=== PATIENT | male | born 1960 | race Caucasian/White ===

== ENCOUNTER → 2017-09-01 | Outpatient (CLI) | payer OTHER ==
[2016-10-26 19:42] VITALS: BP 160/88
[~2017-09-01] MED LIST: ASPI81TA44 PO; ATOR40TA59 PO; COLE1TAB PO; GABA400C PO; GABA800T2 PO; GLIP10TA13 PO; GLIP5TAB10 PO; INSU100I13 SQ; INSU100I17 SQ; INSU300I; METF-620 PO; METH750T2 PO; METO-239 PO; METO25TA2 PO; MULT-245 PO; OMEP40CA5 PO; OXYC1TAB9 PO; Oxycodone Hcl/Acetaminophen PO; PANT40TA3 PO; SITA100T PO; TAMS0.4C2 PO; VALS160T3 PO; VALS40TA2 PO; VALS40TA9 PO; VALS80TA22 PO; VALS80TA3 PO
[2017-09-01 14:05] LABS: BASO # 0.1 x10^3/uL (0.0-0.2); BASO % 1 % (0-3); EOS % 1 % (0-3); HEMATOCRIT 35.7 % (39.0-53.0); HEMOGLOBIN 12.2 g/dL (13.0-17.5); LYMPH % 31 % (24-48); MEAN CORPUSCULAR HEMOGLOBIN 32 pg (25-35); MEAN CORPUSCULAR HGB CONC 34 g/dL (31-37); MEAN CORPUSCULAR VOLUME 94 fL (79-100); MONO % 7 % (0-9); NEUT % 59 % (31-73); PLATELET COUNT 189 x10^3/uL (140-400); RED BLOOD COUNT 3.81 x10^6/uL (4.30-5.70); RED CELL DISTRIBUTION WIDTH 13.4 % (11.5-14.5); WHITE BLOOD COUNT 9.5 x10^3/uL (4.0-11.0)
[2017-09-01 14:44] LABS: CALCIUM 9.6 mg/dL (8.5-10.1); CREATININE 1.3 mg/dL (0.7-1.3); GFR 56.7; POTASSIUM 4.3 mmol/L (3.5-5.1)
== END | disposition home or self-care (01) ==
LOC: LAB 13:43
DX: I10 Essential (primary) hypertension (principal); E11.59 Type 2 diabetes mellitus with other circulatory complications; N40.1 Benign prostatic hyperplasia with lower urinary tract symptoms
CPT/HCPCS: 36415; 80048; 82306; 83036; 85025

== ENCOUNTER 2017-09-29 18:44 | Emergency (ER) | payer OTHER ==
[~2017-09-29] VITALS: Ht 170.2 cm; Wt 117.9 kg
[2017-09-29] MEDS ORDERED: BUPR150T6 PO (19:27)
[2017-09-29] MEDS ORDERED: CLOP75TA PO (19:28)
[2017-09-29] MEDS ORDERED: CITA20TA5 PO (19:28)
[2017-09-29] MEDS ORDERED: FURO20TA3 PO (19:29)
[2017-09-29] MEDS ORDERED: OMEP10CA3 PO (19:29)
[2017-09-29] MEDS ORDERED: ROPI0.5T PO (19:31)
[2017-09-29] MEDS ORDERED: MELO7.5T29 PO (19:32)
--- NOTE | 2017-09-29 19:33 | PHYS DOC ---
Past Medical History Past Medical History: CAD, Cancer, CVA, Depression, Diabetes-Type II, GERD, Hypertension, TIA Additional Past Medical Histor: colon cancer Past Surgical History: Cancer Surgery, Cholecystectomy, Other Additional Past Surgical Histo: eyes,ears,nose,hand ,DEFIB LEFT CHEST,COLON RESECTION Alcohol Use: None Drug Use: None Adult General Chief Complaint Chief Complaint: CHEST PAIN HPI HPI Patient is a 57 year old M who presents with chest pain that developed while he was driving home. Patient states he got home and took nitroglycerin. Patient states that her Kosta is his cushion filler. Patient denies previous AR or stents or bypass surgery. Patient does have a history of angina which takes nitro. Patient states that his chest pain was left-sided with radiation to his left arm. Patient states his pain is improved once he got to the emergency room. Patient denies any shortness of breath. Patient has no fevers. Patient has no other complaints. Review of Systems Review of Systems GEN: Denies fevers, chills, sweats HEENT: Denies blurred vision, sore throat CV: Chest pain RESP: Denies shortness of air, cough GI: Denies n/v/d NEURO: Denies confusion, dizziness MSK: Denies weakness, joint pain/swelling All other systems were reviewed and found to be within normal limits, except as documented in this note. Allergies Allergies Allergies Coded Allergies Type Severity Reaction Last Updated Verified Penicillins Allergy Intermediate 02/02/15 No codeine Allergy Intermediate 10/25/16 Yes Physical Exam Physical Exam GEN.: No apparent distress. Alert and oriented. HEENT: Head is normocephalic, atraumatic NECK: Supple. LUNGS: CTAB. HEART: RRR, S1, S2 present. Peripheral pulses intact ABDOMEN: Soft, nontender. Positive bowel sounds. EXTREMITIES: Without any cyanosis. NEUROLOGIC: Normal speech, normal tone PSYCHIATRIC: Normal affect, normal mood. SKIN: No ulcerations Current Patient Data Vital Signs Vital Signs Date Time Temp Pulse Resp B/P (MAP) Pulse Ox O2 Delivery O2 Flow Rate FiO2 09/29/17 21:23 80 11 161/77 (105) 95 Nasal Cannula 1.0 09/29/17 19:00 97.9 97.9 Lab Values Laboratory Tests Test 09/29/17 19:05 White Blood Count 11.1 x10^3/uL (4.0-11.0) H Red Blood Count 4.00 x10^6/uL (4.30-5.70) L Hemoglobin 12.5 g/dL (13.0-17.5) L Hematocrit 37.4 % (39.0-53.0) L Mean Corpuscular Volume 94 fL (79-100) Mean Corpuscular Hemoglobin 31 pg (25-35) Mean Corpuscular Hemoglobin Concent 34 g/dL (31-37) Red Cell Distribution Width 13.2 % (11.5-14.5) Platelet Count 211 x10^3/uL (140-400) Neutrophils (%) (Auto) 65 % (31-73) Lymphocytes (%) (Auto) 24 % (24-48) Monocytes (%) (Auto) 8 % (0-9) Eosinophils (%) (Auto) 1 % (0-3) Basophils (%) (Auto) 1 % (0-3) Neutrophils # (Auto) 7.3 x10^3uL (1.8-7.7) Lymphocytes # (Auto) 2.7 x10^3/uL (1.0-4.8) Monocytes # (Auto) 0.8 x10^3/uL (0.0-1.1) Eosinophils # (Auto) 0.1 x10^3/uL (0.0-0.7) Basophils # (Auto) 0.2 x10^3/uL (0.0-0.2) Sodium Level 141 mmol/L (136-145) Potassium Level 4.0 mmol/L (3.5-5.1) Chloride Level 100 mmol/L (98-107) Carbon Dioxide Level 32 mmol/L (21-32) Anion Gap 9 (6-14) Blood Urea Nitrogen 16 mg/dL (8-26) Creatinine 1.2 mg/dL (0.7-1.3) Estimated GFR (Cockcroft-Gault) 62.2 BUN/Creatinine Ratio 13 (6-20) Glucose Level 132 mg/dL (70-99) H Calcium Level 9.3 mg/dL (8.5-10.1) Total Bilirubin 0.6 mg/dL (0.2-1.0) Aspartate Amino Transferase (AST) 30 U/L (15-37) Alanine Aminotransferase (ALT) 26 U/L (16-63) Alkaline Phosphatase 66 U/L (46-116) Troponin I Quantitative < 0.017 ng/mL (0.000-0.055) Total Protein 7.8 g/dL (6.4-8.2) Albumin 3.6 g/dL (3.4-5.0) Albumin/Globulin Ratio 0.9 (1.0-1.7) L Laboratory Tests 09/29/17 19:05 Laboratory Tests 09/29/17 19:05 EKG EKG 1855: EKG shows normal sinus rhythm rate of 83 no STEMI[] Radiology/Procedures Radiology/Procedures Chest x-ray NAD[] Course & Med Decision Making Course & Med Decision Making Pertinent Labs and Imaging studies reviewed. (See chart for details) ED course: Patient is seen and examined emergency room the cardiac workup was ordered 2204: Patient was reevaluated in which she states this chest pain has resolved and he feels much better like to go home. Patient states he does not want admitted to hospital for cardiac workup and like to go home and follow-up with his cushion filler Kosta. Patient understand all risks including and disability. MDM: After reviewing the chart, CC/HPI/PMH, physical exam, [lab results], [ radiological results], I do not believe the patient having acute AR (Heart score =3), PE (PERC neg), and low suspicion for acute thoracic aortic dissection. I did offer the patient admission to the hospital for cardiac workup over he declined understanding all risks and elected to go home and follow-up with his cushion filler as an outpatient. Patient stable for discharge. On reexamine patient's chest pain has resolved patient is asymptomatic. Additional verbal discharge instructions were provided to the patient and that if symptoms get worse or any new symptoms arise that are worrisome to the patient he is to return to the emergency room immediately [] Dragon Disclaimer Dragon Disclaimer This electronic medical record was generated, in whole or in part, using a voice recognition dictation system. Departure Departure Impression: Primary Impression: Chest pain Disposition: 01 HOME, SELF-CARE Condition: IMPROVED Referrals: HERMES LOPEZ MD Please follow-up within the next one to 2 days Patient Instructions: Chest Pain (Nonspecific) MARTÍN LOUISE DO Sep 29, 2017 19:33
[2017-09-29 19:36] LABS: BASO # 0.2 x10^3/uL (0.0-0.2); BASO % 1 % (0-3); EOS % 1 % (0-3); HEMATOCRIT 37.4 % (39.0-53.0); HEMOGLOBIN 12.5 g/dL (13.0-17.5); LYMPH # 2.7 x10^3/uL (1.0-4.8); LYMPH % 24 % (24-48); MEAN CORPUSCULAR HEMOGLOBIN 31 pg (25-35); MEAN CORPUSCULAR HGB CONC 34 g/dL (31-37); MEAN CORPUSCULAR VOLUME 94 fL (79-100); MONO % 8 % (0-9); NEUT % 65 % (31-73); PLATELET COUNT 211 x10^3/uL (140-400); RED CELL DISTRIBUTION WIDTH 13.2 % (11.5-14.5); WHITE BLOOD COUNT 11.1 x10^3/uL (4.0-11.0)
[2017-09-29 19:46] LABS: CALCIUM 9.3 mg/dL (8.5-10.1); CREATININE 1.2 mg/dL (0.7-1.3); GFR 62.2
[2017-09-29 19:52] LABS: ALBUMIN 3.6 g/dL (3.4-5.0); ALBUMIN/GLOBULIN RATIO 0.9 (1.0-1.7); TOTAL BILIRUBIN 0.6 mg/dL (0.2-1.0); TOTAL PROTEIN 7.8 g/dL (6.4-8.2)
[2017-09-29 22:23] VITALS: BP 143/66
--- NOTE | 2017-09-30 06:54 | EKG ---
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
--- NOTE | 2017-09-30 07:53 | RAD ---
Portable chest, 09/29/2017: History: Chest pain Comparison is made to a study from 11/03/2016. A small electronic device is again noted projected over the chest just to the left of midline. The heart size and pulmonary vascularity are normal. There are prominent epicardial fat pads. No pulmonary infiltrates are seen. There is no evidence of pleural fluid. IMPRESSION: No acute cardiopulmonary abnormality is detected.
== END 2017-09-29 22:43 | disposition home or self-care (01) ==
LOC: ER 18:44
DX: R07.89 Other chest pain (principal); E11.9 Type 2 diabetes mellitus without complications; I25.10 Atherosclerotic heart disease of native coronary artery without angina pectoris; I10 Essential (primary) hypertension; K21.9 Gastro-esophageal reflux disease without esophagitis; I25.2 Old myocardial infarction; Z86.73 Personal history of transient ischemic attack (TIA), and cerebral infarction without residual deficits; Z90.49 Acquired absence of other specified parts of digestive tract; Z88.0 Allergy status to penicillin; Z88.5 Allergy status to narcotic agent
CPT/HCPCS: 36415; 71010; 80053; 84484; 85025; 93005; 99285-25

== ENCOUNTER 2017-12-07 18:15 | Emergency (ER) | payer OTHER, MEDICAID ==
[2017-12-07] MEDS: IV NORMAL SALINE 1000ML BAG 1,000 ML IV (19:14)
[2017-12-07 19:21] LABS: ADD MAN DIFF? NO
[2017-12-07] MEDS: MORPHINE SULFATE 10 MG/ML VIAL. IV (19:21)
[2017-12-07] MEDS: diazePAM 5 MG TABLET PO (19:21)
[2017-12-07 19:22] LABS: BASO # 0.1 x10^3/uL (0.0-0.2); BASO % 1 % (0-3); EOS # 0.1 x10^3/uL (0.0-0.7); EOS % 1 % (0-3); HEMATOCRIT 38.6 % (39.0-53.0); HEMOGLOBIN 12.8 g/dL (13.0-17.5); LYMPH # 2.4 x10^3/uL (1.0-4.8); LYMPH % 27 % (24-48); MEAN CORPUSCULAR HEMOGLOBIN 31 pg (25-35); MEAN CORPUSCULAR HGB CONC 33 g/dL (31-37); MEAN CORPUSCULAR VOLUME 93 fL (79-100); MONO # 0.7 x10^3/uL (0.0-1.1); MONO % 7 % (0-9); NEUT # 5.7 x10^3uL (1.8-7.7); NEUT % 63 % (31-73); PLATELET COUNT 192 x10^3/uL (140-400); RED BLOOD COUNT 4.15 x10^6/uL (4.30-5.70)
[2017-12-07 19:34] LABS: ANION GAP 12 (6-14); BLOOD UREA NITROGEN 18 mg/dL (8-26); BUN/CREATININE RATIO 13 (6-20); CALCIUM 8.9 mg/dL (8.5-10.1); CARBON DIOXIDE 29 mmol/L (21-32); CHLORIDE 100 mmol/L (98-107); CREATININE 1.4 mg/dL (0.7-1.3); GFR 52.1; GLUCOSE 202 mg/dL (70-99); POTASSIUM 4.1 mmol/L (3.5-5.1); SODIUM 141 mmol/L (136-145)
[2017-12-07 19:36] LABS: ETHANOL < 10 mg/dL (0-10)
[2017-12-07 19:40] LABS: ALBUMIN 3.4 g/dL (3.4-5.0); ALBUMIN/GLOBULIN RATIO 0.8 (1.0-1.7); ALK PHOS 69 U/L (46-116); ALT (SGPT) 30 U/L (16-63); AST (SGOT) 25 U/L (15-37); LIPASE 162 U/L (73-393); MAGNESIUM 1.7 mg/dL (1.8-2.4); TOTAL BILIRUBIN 0.6 mg/dL (0.2-1.0); TOTAL PROTEIN 7.7 g/dL (6.4-8.2)
[2017-12-07 19:44] LABS: NT-PRO BNP 39 pg/mL (0-124)
[2017-12-07] MEDS ORDERED: CONTRAST GIVEN MC (19:45)
[2017-12-07 19:49] LABS: INR 1.1 (0.8-1.1); PARTIAL THROMBOPLASTIN TIME 29 SEC (24-38); PROTHROMBIN TIME PATIENT 13.9 SEC (11.7-14.0)
[2017-12-07] MEDS: IOHEXOL 300 MG/ML 100ML VIAL. IV (19:59)
[2017-12-07 20:53] LABS: BARBITURATES NEG (NEG); BENZODIAZEPINES NEG (NEG); CANNABINOIDS NEG (NEG); COCAINE NEG (NEG); METHADONE NEG (NEG); OPIATES POS (NEG); PHENCYCLIDINE NEG (NEG)
[2017-12-07 20:54] LABS: AMPHETAMINE/METHAMPHETAMINE NEG (NEG); ETHANOL, URINE NEG (NEG)
== END 2017-12-07 22:55 | disposition home or self-care (01) ==
LOC: ER 18:15
DX: S33.5XXA Sprain of ligaments of lumbar spine, initial encounter (principal); S23.3XXA Sprain of ligaments of thoracic spine, initial encounter; S09.90XA Unspecified injury of head, initial encounter; E83.42 Hypomagnesemia; R10.84 Generalized abdominal pain; I25.10 Atherosclerotic heart disease of native coronary artery without angina pectoris; F32.9 Major depressive disorder, single episode, unspecified; E11.9 Type 2 diabetes mellitus without complications; I10 Essential (primary) hypertension; K21.9 Gastro-esophageal reflux disease without esophagitis; Z86.73 Personal history of transient ischemic attack (TIA), and cerebral infarction without residual deficits; Z88.0 Allergy status to penicillin; Z90.49 Acquired absence of other specified parts of digestive tract; Z95.810 Presence of automatic (implantable) cardiac defibrillator; Z88.5 Allergy status to narcotic agent; W01.198A Fall on same level from slipping, tripping and stumbling with subsequent striking against other object, initial encounter; Y93.89 Activity, other specified; Y92.89 Other specified places as the place of occurrence of the external cause; Y99.8 Other external cause status
CPT/HCPCS: 36415; 70450; 71260; 72125; 73080; 74177; 80053; 80307; 83690; 83735; 83880; 85025; 85610; 85730; 96361; 96374; 99285-25; G0480; J2270; J7030; Q9967

== ENCOUNTER → 2017-12-09 | Outpatient (CLI) | payer OTHER, MEDICAID ==
[~2017-12-09] MED LIST changes: -ASPI81TA44 PO; -ATOR40TA59 PO; -COLE1TAB PO; -GABA400C PO; -GABA800T2 PO; -GLIP10TA13 PO; -GLIP5TAB10 PO; -INSU100I13 SQ; -INSU100I17 SQ; -INSU300I; +LIDOCAINE 2%/EPI 1:100,000 20 ML VIAL.; -METF-620 PO; -METH750T2 PO; -METO-239 PO; -METO25TA2 PO; -MULT-245 PO; -OMEP40CA5 PO; -OXYC1TAB9 PO; -Oxycodone Hcl/Acetaminophen PO; -PANT40TA3 PO; -SITA100T PO; -TAMS0.4C2 PO; -VALS160T3 PO; -VALS40TA2 PO; -VALS40TA9 PO; -VALS80TA22 PO; -VALS80TA3 PO; +fentaNYL PF VIAL 100 MCG/2 ML VIAL
[2017-12-09 11:28] LABS: ADD MAN DIFF? NO
[2017-12-09 11:33] LABS: BASO # 0.1 x10^3/uL (0.0-0.2); BASO % 1 % (0-3); EOS # 0.1 x10^3/uL (0.0-0.7); EOS % 2 % (0-3); HEMATOCRIT 36.2 % (39.0-53.0); HEMOGLOBIN 12.4 g/dL (13.0-17.5); LYMPH # 2.4 x10^3/uL (1.0-4.8); LYMPH % 28 % (24-48); MEAN CORPUSCULAR HEMOGLOBIN 31 pg (25-35); MEAN CORPUSCULAR HGB CONC 34 g/dL (31-37); MEAN CORPUSCULAR VOLUME 91 fL (79-100); MONO # 0.6 x10^3/uL (0.0-1.1); MONO % 7 % (0-9); NEUT # 5.4 x10^3uL (1.8-7.7); NEUT % 63 % (31-73); PLATELET COUNT 191 x10^3/uL (140-400); RED BLOOD COUNT 3.99 x10^6/uL (4.30-5.70); RED CELL DISTRIBUTION WIDTH 14.1 % (11.5-14.5); WHITE BLOOD COUNT 8.6 x10^3/uL (4.0-11.0)
[2017-12-09 11:53] LABS: INR 1.2 (0.8-1.1); PROTHROMBIN TIME PATIENT 14.1 SEC (11.7-14.0)
[2017-12-09] MEDS: LIDOCAINE 2%/EPI 1:100,000 20 ML VIAL. IJ (12:58)
[2017-12-09] MEDS: fentaNYL PF VIAL 100 MCG/2 ML VIAL IV (12:59)
== END | disposition home or self-care (01) ==
LOC: CCL 10:42
DX: T82.598A Other mechanical complication of other cardiac and vascular devices and implants, initial encounter (principal); Y84.8 Other medical procedures as the cause of abnormal reaction of the patient, or of later complication, without mention of misadventure at the time of the procedure; Y92.89 Other specified places as the place of occurrence of the external cause; Z79.01 Long term (current) use of anticoagulants
CPT/HCPCS: 33284; 36415; 85025; 85610; J3010; J3490

== ENCOUNTER → 2018-05-11 | Outpatient (CLI) | payer OTHER | END | disposition home or self-care (01) | LOC: RAD 15:49 | DX: M79.602 Pain in left arm (principal); Z91.81 History of falling | CPT/HCPCS: 73060; 73090 ==

== ENCOUNTER 2018-07-10 17:00 | Emergency (ER) | payer OTHER ==
[~2018-07-10] VITALS: Ht 170.2 cm; Wt 115.7 kg
[~2018-07-10 17:00] MED LIST changes: +ASPI81TA59 PO; +ATOR40TA59 PO; +BENZ-8 PO; +BUPR150T6 PO; +CITA20TA6 PO; +CLOP75TA PO; +COLE1TAB PO; +ERGO500027 PO; +FURO20TA3 PO; +GABA400C PO; +GABA800T2 PO; +GLIP10TA13 PO; +GLIP5TAB10 PO; +HYDR-971 PO; +INSU100I13 SQ; +INSU100I17 SQ; +INSU300I; -LIDOCAINE 2%/EPI 1:100,000 20 ML VIAL.; +LIRA0.6P2 SQ; +MELO15TA23 PO; +MELO7.5T29 PO; +METF10003 PO; +METH750T2 PO; +METO-239 PO; +METO25TA2 PO; +MULT-245 PO; +NITR0.4T22 SL; +OMEP10CA3 PO; +OMEP40CA5 PO; +ONDA4TAB10 PO; +OXYC-411 PO; +Oxycodone Hcl/Acetaminophen PO; +PANT40TA3 PO; +ROPI0.5T PO; +SENN-79 PO; +SITA100T PO; +TAMS0.4C2 PO; +TRAM50TA PO; +TRAZ-85 PO; +VALS160T3 PO; +VALS40TA10 PO; +VALS40TA2 PO; +VALS80TA28 PO; +VALS80TA3 PO; -fentaNYL PF VIAL 100 MCG/2 ML VIAL
[2018-07-10 17:17] VITALS: BP 124/64
--- NOTE | 2018-07-10 19:00 | RAD ---
EXAM: Thoracic spine, 3 views; right ribs, 3 views. HISTORY: Pain. Fall. COMPARISON: CT dated 12/07/2017. FINDINGS: Frontal, lateral and swimmer's views of the thoracic spine and 3 views of the right ribs are obtained. There is mild thoracic dextroscoliosis centered at T6. There is no listhesis. The vertebral bodies are normal in height. There are multiple thoracic endplate Schmorl's nodes. There is degenerative endplate remodeling with osteophytosis at C6-C7. No displaced rib fracture is seen. The right lung is clear. IMPRESSION: No acute osseous finding. Electronically signed by: Mahogany Santos MD (07/10/2018 6:57 PM) [facility]
[2018-07-10] MEDS ORDERED: HYDR-2758 PO (19:31)
--- NOTE | 2018-07-10 19:31 | PHYS DOC ---
Past Medical History Past Medical History: CAD, Cancer, CVA, Depression, Diabetes-Type II, GERD, Hypertension, TIA Additional Past Medical Histor: colon cancer Past Surgical History: Cancer Surgery, Cholecystectomy, Other Additional Past Surgical Histo: eyes,ears,nose,hand ,DEFIB LEFT CHEST,COLON RESECTION Alcohol Use: None Drug Use: None Adult General Chief Complaint Chief Complaint: RIB PAIN [facility] HPI Patient is a 58 year old [f__sex] who presents with [] Review of Systems Review of Systems Constitutional: Denies fever or chills [] Eyes: Denies change in visual acuity, redness, or eye pain [] HENT: Denies nasal congestion or sore throat [] Respiratory: Denies cough or shortness of breath [] Cardiovascular: No additional information not addressed in HPI [] GI: Denies abdominal pain, nausea, vomiting, bloody stools or diarrhea [] : Denies dysuria or hematuria [] Musculoskeletal: Denies back pain or joint pain [] Integument: Denies rash or skin lesions [] Neurologic: Denies headache, focal weakness or sensory changes [] Endocrine: Denies polyuria or polydipsia [] All other systems were reviewed and found to be within normal limits, except as documented in this note. Allergies Allergies Allergies Coded Allergies Type Severity Reaction Last Updated Verified Penicillins Allergy Intermediate 11/14/17 Yes codeine Allergy Intermediate 10/25/16 Yes Physical Exam Physical Exam Constitutional: Well developed, well nourished, no acute distress, non-toxic appearance. [] HENT: Normocephalic, atraumatic, bilateral external ears normal, oropharynx moist, no oral exudates, nose normal. [] Eyes: PERRLA, EOMI, conjunctiva normal, no discharge. [] Neck: Normal range of motion, no tenderness, supple, no stridor. [] Cardiovascular:Heart rate regular rhythm, no murmur [] Lungs & Thorax: Bilateral breath sounds clear to auscultation [] Abdomen: Bowel sounds normal, soft, no tenderness, no masses, no pulsatile masses. [] Skin: Warm, dry, no erythema, no rash. [] Back: No tenderness, no CVA tenderness. [] Extremities: No tenderness, no cyanosis, no clubbing, ROM intact, no edema. [] Neurologic: Alert and oriented X 3, normal motor function, normal sensory function, no focal deficits noted. [] Psychologic: Affect normal, judgement normal, mood normal. [] Current Patient Data Vital Signs Vital Signs Date Time Temp Pulse Resp B/P (MAP) Pulse Ox O2 Delivery O2 Flow Rate FiO2 07/10/18 17:17 98.0 88 18 124/64 (84) 94 Room Air 98.0 EKG EKG [] Radiology/Procedures Radiology/Procedures [] Course & Med Decision Making Course & Med Decision Making Pertinent Labs and Imaging studies reviewed. (See chart for details) [] Dragon Disclaimer Dragon Disclaimer This electronic medical record was generated, in whole or in part, using a voice recognition dictation system. Departure Departure Impression: Primary Impression: Contusion, chest wall Additional Impression: Acute thoracic back pain Disposition: HOME, SELF-CARE Condition: STABLE Referrals: STEVEN CUTLER DO (PCP) Patient Instructions: Back Pain, Adult, [id number], Chest Contusion, Easy-to- Read Additional Instructions: Fill your prescription and use it as directed. You may try application of ice to sore areas for comfort. Follow up with your doctor in 1-2 days. return to ER if your symptoms worsen. Scripts Hydrocodone Bit/Acetaminophen (HYDROCODONE-APAP 5-325 ) 1 Each Tablet 1 TAB PO PRN Q6HRS PRN for PAIN for 3 Days, #1 TAB 0 Refills Prov: KADIE BAEZ WAREHOUSE PACKAGING SUPERVISOR 07/10/18 Problem Qualifiers Primary Impression: Contusion, chest wall Encounter type: initial encounter Laterality: right Qualified Codes: S20.211A - Contusion of right front wall of thorax, initial encounter Additional Impression: Acute thoracic back pain Back pain laterality: right Qualified Codes: M54.6 - Pain in thoracic spine KADIE BAEZ WAREHOUSE PACKAGING SUPERVISOR Jul 10, 2018 19:31
[2018-07-10] MEDS ORDERED: HYDROcodone/APAP 5/325MG 1 TAB TABLET ONE (19:38)
[2018-07-10] MEDS ORDERED: HYDROcodone/APAP 5/325MG 1 TAB TABLET PO ONE (19:45)
== END 2018-07-10 19:42 | disposition home or self-care (01) ==
LOC: ER 17:00
DX: S20.211A Contusion of right front wall of thorax, initial encounter (principal); I10 Essential (primary) hypertension; I25.10 Atherosclerotic heart disease of native coronary artery without angina pectoris; E11.9 Type 2 diabetes mellitus without complications; F32.9 Major depressive disorder, single episode, unspecified; K21.9 Gastro-esophageal reflux disease without esophagitis; Z86.73 Personal history of transient ischemic attack (TIA), and cerebral infarction without residual deficits; Z90.49 Acquired absence of other specified parts of digestive tract; Z88.0 Allergy status to penicillin; Z88.5 Allergy status to narcotic agent; X58.XXXA Exposure to other specified factors, initial encounter; Y93.89 Activity, other specified; Y92.89 Other specified places as the place of occurrence of the external cause; Y99.8 Other external cause status
CPT/HCPCS: 71100; 72072; 99284

== ENCOUNTER 2018-08-01 16:48 | Inpatient (IN) | payer OTHER ==
[~2018-08-01] VITALS: Ht 170.2 cm; Wt 120.4 kg
[~2018-08-01 16:48] MED LIST changes: +HYDR-2758 PO; -METF10003 PO; +METF10007 PO
--- NOTE | 2018-08-01 17:23 | PHYS DOC ---
Past Medical History Past Medical History: CAD, Cancer, CVA, Depression, Diabetes-Type II, GERD, Hypertension, TIA Additional Past Medical Histor: colon cancer Past Surgical History: Cancer Surgery, Cholecystectomy, Other Additional Past Surgical Histo: eyes,ears,nose,hand ,DEFIB LEFT CHEST,COLON RESECTION Alcohol Use: None Drug Use: None Adult General Chief Complaint Chief Complaint: CHEST PAIN-CARDIAC NATURE HPI HPI Patient is a 58 year old male who presents with chest pain that started one hour prior to arrival. He was sitting on the couch watching television when it first occurred. Patient reports pain is left sided, sharp in nature, and radiates to left arm. Reports accompanied by shortness of air. Denies nausea, vomiting, syncope, palpitations, diaphoresis, or lower extremity swelling. Patient reports a history of hypertension, diabetes, CVA, hyperlipidemia. Review of Systems Review of Systems Constitutional: Denies fever or chills Eyes: Denies change in visual acuity, redness, or eye pain HENT: Denies nasal congestion or sore throat Respiratory: Denies cough. Cardiovascular: Chest pain one hour prior to arrival. Sharp and radiates to left arm GI: Denies abdominal pain, nausea, vomiting, bloody stools or diarrhea : Denies dysuria or hematuria Musculoskeletal: Denies back pain or joint pain Integument: Denies rash or skin lesions Neurologic: Denies syncope, headache, focal weakness or sensory changes Endocrine: Denies polyuria or polydipsia All other systems were reviewed and found to be within normal limits, except as documented in this note. Current Medications Current Medications Current Medications Medications (Trade) Dose Ordered Sig/[facility] Start Time Stop Time Status Last Admin Dose Admin Aspirin (Children'S Aspirin) 324 mg 1X ONCE 08/01/18 17:30 08/01/18 17:31 DC 08/01/18 17:39 324 MG Morphine Sulfate (Morphine Sulfate) 4 mg 1X ONCE 08/01/18 18:30 08/01/18 18:31 DC 08/01/18 18:44 4 MG Ondansetron HCl (Zofran) 4 mg 1X ONCE 08/01/18 18:30 08/01/18 18:31 DC 08/01/18 18:40 4 MG Allergies Allergies Allergies Coded Allergies Type Severity Reaction Last Updated Verified Penicillins Allergy Intermediate 11/14/17 Yes codeine Allergy Intermediate 9/16/18 Yes Physical Exam Physical Exam Constitutional: Well developed, obese, no acute distress, non-toxic appearance. HENT: Normocephalic, atraumatic, bilateral external ears normal, oropharynx moist, no oral exudates, nose normal. Eyes: PERRLA, EOMI, conjunctiva normal, no discharge. Neck: Normal range of motion, no tenderness, supple, no stridor. Cardiovascular:Heart rate regular rhythm, no murmur Lungs & Thorax: Bilateral breath sounds clear to auscultation Abdomen: Bowel sounds normal, soft, no tenderness, no masses, no pulsatile masses. Skin: Warm, dry, no erythema, no rash. Back: No tenderness, no CVA tenderness. Extremities: No tenderness, no cyanosis, no clubbing, ROM intact, no edema. Neurologic: Alert and oriented X 3, normal motor function, normal sensory function, no focal deficits noted. Psychologic: Affect normal, judgement normal, mood normal. [] Current Patient Data Vital Signs Vital Signs Date Time Temp Pulse Resp B/P (MAP) Pulse Ox O2 Delivery O2 Flow Rate FiO2 08/01/18 18:30 85 18 133/77 (95) 95 Room Air 08/01/18 17:20 97.2 97.2 Lab Values Laboratory Tests Test 08/01/18 17:15 White Blood Count 11.0 x10^3/uL (4.0-11.0) Red Blood Count 3.76 x10^6/uL (4.30-5.70) L Hemoglobin 12.2 g/dL (13.0-17.5) L Hematocrit 35.5 % (39.0-53.0) L Mean Corpuscular Volume 94 fL (79-100) Mean Corpuscular Hemoglobin 33 pg (25-35) Mean Corpuscular Hemoglobin Concent 34 g/dL (31-37) Red Cell Distribution Width 13.7 % (11.5-14.5) Platelet Count 204 x10^3/uL (140-400) Neutrophils (%) (Auto) 58 % (31-73) Lymphocytes (%) (Auto) 32 % (24-48) Monocytes (%) (Auto) 7 % (0-9) Eosinophils (%) (Auto) 2 % (0-3) Basophils (%) (Auto) 2 % (0-3) Neutrophils # (Auto) 6.4 x10^3uL (1.8-7.7) Lymphocytes # (Auto) 3.5 x10^3/uL (1.0-4.8) Monocytes # (Auto) 0.8 x10^3/uL (0.0-1.1) Eosinophils # (Auto) 0.2 x10^3/uL (0.0-0.7) Basophils # (Auto) 0.2 x10^3/uL (0.0-0.2) Prothrombin Time 13.9 SEC (11.7-14.0) Prothrombin Time INR 1.1 (0.8-1.1) D-Dimer ([place]) < 0.27 ug/mlFEU Sodium Level 142 mmol/L (136-145) Potassium Level 4.5 mmol/L (3.5-5.1) Chloride Level 104 mmol/L (98-107) Carbon Dioxide Level 26 mmol/L (21-32) Anion Gap 12 (6-14) Blood Urea Nitrogen 22 mg/dL (8-26) Creatinine 1.5 mg/dL (0.7-1.3) H Estimated GFR (Cockcroft-Gault) 47.9 BUN/Creatinine Ratio 15 (6-20) Glucose Level 91 mg/dL (70-99) Calcium Level 9.7 mg/dL (8.5-10.1) Magnesium Level 1.6 mg/dL (1.8-2.4) L Total Bilirubin 0.4 mg/dL (0.2-1.0) Aspartate Amino Transferase (AST) 24 U/L (15-37) Alanine Aminotransferase (ALT) 31 U/L (16-63) Alkaline Phosphatase 55 U/L (46-116) Creatine Kinase 47 U/L (39-308) Troponin I Quantitative < 0.017 ng/mL (0.000-0.055) VM-Hce-B-Type Natriuretic Peptide 76 pg/mL (0-124) Total Protein 7.9 g/dL (6.4-8.2) Albumin 3.7 g/dL (3.4-5.0) Albumin/Globulin Ratio 0.9 (1.0-1.7) L Laboratory Tests 08/01/18 17:15 Laboratory Tests 08/01/18 17:15 EKG EKG EKG 08/01/2008 at 1700, reviewed by attending physician and signed. Rate is 85 bpm, normal sinus rhythm Radiology/Procedures Radiology/Procedures [] Impressions: 1.Chest pain 2. Diabetes 3. Hypomagnesemia 4. HTN Course & Med Decision Making Course & Med Decision Making Pertinent Labs and Imaging studies reviewed. (See chart for details) Initial troponin, EKG, chest x-ray reviewed and unremarkable. Patient was given 324 of aspirin. Pain is 2 out of 10. Magnesium returned mildly low 1.6. Replacement was ordered. Heart score 4. Will admit to telemetry for serial enzymes and further evaluation and monitoring. Patient is agreeable with plan. Signs have remained stable throughout stay. accepted by Dr Aiden Go Disclaimer Abbi Disclaimer This electronic medical record was generated, in whole or in part, using a voice recognition dictation system. Departure Departure Impression: Primary Impression: Chest pain Additional Impression: Type 2 diabetes mellitus Disposition: ADMITTED INPATIENT Admitting Physician: Lyssa Wolfe Referrals: STEVEN CUTLER DO (PCP) Problem Qualifiers ALVINA WILL APRN Aug 01, 2018 17:23
--- NOTE | 2018-08-01 17:24 | EKG ---
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
[2018-08-01] MEDS ORDERED: ASPIRIN CHEWABLE 81 MG TABLET. PO ONE (17:30)
[2018-08-01 17:39] LABS: BASO # 0.2 x10^3/uL (0.0-0.2); BASO % 2 % (0-3); EOS # 0.2 x10^3/uL (0.0-0.7); EOS % 2 % (0-3); HEMATOCRIT 35.5 % (39.0-53.0); HEMOGLOBIN 12.2 g/dL (13.0-17.5); LYMPH # 3.5 x10^3/uL (1.0-4.8); LYMPH % 32 % (24-48); MEAN CORPUSCULAR HEMOGLOBIN 33 pg (25-35); MEAN CORPUSCULAR HGB CONC 34 g/dL (31-37); MEAN CORPUSCULAR VOLUME 94 fL (79-100); MONO # 0.8 x10^3/uL (0.0-1.1); MONO % 7 % (0-9); NEUT # 6.4 x10^3uL (1.8-7.7); NEUT % 58 % (31-73); PLATELET COUNT 204 x10^3/uL (140-400); RED BLOOD COUNT 3.76 x10^6/uL (4.30-5.70); RED CELL DISTRIBUTION WIDTH 13.7 % (11.5-14.5)
[2018-08-01 17:48] LABS: PROTHROMBIN TIME PATIENT 13.9 SEC (11.7-14.0)
[2018-08-01 17:49] LABS: CALCIUM 9.7 mg/dL (8.5-10.1); CREATININE 1.5 mg/dL (0.7-1.3); GFR 47.9; POTASSIUM 4.5 mmol/L (3.5-5.1)
[2018-08-01 17:52] LABS: D-DIMER < 0.27 ug/mlFEU (0.00-0.50)
[2018-08-01 17:56] LABS: ALBUMIN 3.7 g/dL (3.4-5.0); ALBUMIN/GLOBULIN RATIO 0.9 (1.0-1.7); MAGNESIUM 1.6 mg/dL (1.8-2.4); TOTAL BILIRUBIN 0.4 mg/dL (0.2-1.0); TOTAL PROTEIN 7.9 g/dL (6.4-8.2)
[2018-08-01] MEDS ORDERED: ONDANSETRON PF 4 MG/2 ML VIAL. IV ONE (18:30)
[2018-08-01] MEDS ORDERED: MORPHINE SULFATE 4 MG/ML VIAL. IV ONE (18:30)
[2018-08-01] MEDS ORDERED: MAGNESIUM SULFATE 2GM 50 ML IV ONE (19:00)
[2018-08-01 19:20] VITALS: BP 152/93
[2018-08-01 20:28] VITALS: BP 138/73
[2018-08-01] MEDS ORDERED: traMADol 50 MG TABLET PO PRN (21:00)
[2018-08-01] MEDS ORDERED: ONDANSETRON PF 4 MG/2 ML VIAL. IV PRN (21:00)
[2018-08-01] MEDS ORDERED: ONDANSETRON ODT 4 MG TAB.RAPDIS. PO PRN ×2 (21:00)
[2018-08-01] MEDS ORDERED: ACETAMINOPHEN 500 MG TABLET PO PRN (21:00)
[2018-08-01] MEDS ORDERED: DEXTROSE 50% 25 GM / 50ML DISP.SYRIN. IV PRN (21:00)
[2018-08-01] MEDS ORDERED: NITROGLYCERIN SUBLINGUAL 0.4 MG BOTTLE OF 25. SL PRN (21:00)
[2018-08-01] MEDS ORDERED: LABETALOL 20 MG/4 ML DISP.SYRIN. IVP PRN (21:00)
[2018-08-01] MEDS ORDERED: HYDROcodone/APAP 5/325MG 1 TAB TABLET PO PRN (21:00)
[2018-08-01] MEDS ORDERED: ZOLPIDEM 5 MG TABLET. PO PRN (21:00)
[2018-08-01] MEDS ORDERED: IBUPROFEN 600 MG TABLET. PO PRN (21:00)
[2018-08-01] MEDS ORDERED: SENNOSIDES 8.6 MG TABLET PO PRN (21:45)
[2018-08-01] MEDS ORDERED: INSU100I13 SQ (21:48)
[2018-08-01] MEDS ORDERED: blood pressure pill PO (21:50)
[2018-08-01] MEDS ORDERED: [UNRECOGNIZED DRUG - REMARK] (21:50)
[2018-08-01] MEDS: TAMSULOSIN 0.4 MG CAP.ER.24H. PO SCH (21:58)
[2018-08-01] MEDS: ATORVASTATIN CALCIUM 40 MG TABLET. PO SCH (21:58)
[2018-08-01] MEDS: HYDROcodone/APAP 5/325MG 1 TAB TABLET PO PRN (21:59)
[2018-08-01 23:35] VITALS: BP 102/54
[2018-08-02 03:00] VITALS: BP 108/39
[2018-08-02] MEDS: HYDROcodone/APAP 5/325MG 1 TAB TABLET PO PRN ×3 (06:23→21:17)
[2018-08-02 07:05] VITALS: BP 104/47
[2018-08-02] MEDS: INSULIN LISPRO 300 UNITS/3 ML INSULN.PEN. SQ SCH ×6 (08:00→17:00)
--- NOTE | 2018-08-02 08:58 | RAD ---
PORTABLE CHEST 1V Clinical Indication: CHEST PAIN, SOA Comparison: AP chest November 12, 2017. Findings: Apical lordotic positioning. The cardiomediastinal silhouette is normal. Lungs are clear. There is no pneumothorax. No pleural effusion is appreciated. No acute bone abnormality. IMPRESSION: No acute cardiopulmonary process. Electronically signed by: Camilo Leon MD (08/02/2018 8:55 AM) [id number]
[2018-08-02] MEDS ORDERED: BENZONATATE 100 MG CAPSULE. PO PRN (09:00)
[2018-08-02] MEDS ORDERED: NON FORMULARY ITEM (Liraglutide (Victoza 3-Pak) 1.2 MG) SQ SCH (09:00)
[2018-08-02 09:44] LABS: CHOLESTEROL/HDL RATIO 4.8
[2018-08-02 10:39] VITALS: BP 126/66
[2018-08-02] MEDS: PANTOPRAZOLE 40 MG TABLET.DR. PO SCH (11:52)
[2018-08-02] MEDS: buPROPion XL 150 MG TAB.ER.24H. PO SCH (11:52)
[2018-08-02] MEDS: CITALOPRAM 20 MG TABLET. PO SCH (11:52)
[2018-08-02] MEDS: CLOPIDOGREL BISULFATE 75 MG TABLET PO SCH (11:52)
[2018-08-02] MEDS: rOPINIRole 0.25 MG TABLET. PO SCH (11:52)
[2018-08-02] MEDS: FUROSEMIDE 20 MG TABLET PO SCH (11:53)
[2018-08-02] MEDS ORDERED: DONE5TAB7 PO (12:05)
[2018-08-02] MEDS ORDERED: OLME20TA17 PO (12:05)
[2018-08-02 15:24] VITALS: BP 117/66
--- NOTE | 2018-08-02 16:50 | HP ---
ADMIT DATE: 08/01/2018 CHIEF COMPLAINT: Chest pain. HISTORY OF PRESENT ILLNESS: The patient is a pleasant 58-year-old male who follows with Dr. Brambila although he states he really does not have any cardiac problems, but then again he states he had a cardiac arrest when he was 12. Basically, he presented with chest pain. I discussed the case with ER physician. We are going to admit the patient and consult Cardiology. PAST MEDICAL HISTORY: According to the record, he has CAD, but he denies that, strokes, depression, diabetes, hypertension, hyperlipidemia, TIA, colon cancer, cholecystectomy, colon resection, eyes, ears, nose and throat surgery, defibrillator in his left chest, colon resection. ALLERGIES: PENICILLIN AND CODEINE. FAMILY HISTORY: Coronary artery disease. SOCIAL HISTORY: He does not drink, smoke or take drugs. MEDICATIONS: Reviewed, please refer to the MRAD. REVIEW OF SYSTEMS: GENERAL: No history of weight change, weakness or fevers. SKIN: No bruising, hair changes or rashes. EYES: No blurred, double or loss of vision. NOSE AND THROAT: No history of nosebleeds, hoarseness or sore throat. HEART: No history of palpitations, chest pain or shortness of breath on exertion. LUNGS: Denies cough, hemoptysis, wheezing or shortness of breath. GASTROINTESTINAL: Denies changes in appetite, nausea, vomiting, diarrhea or constipation. GENITOURINARY: No history of frequency, urgency, hesitancy or nocturia. NEUROLOGIC: Denies history of numbness, tingling, tremor or weakness. PSYCHIATRIC: No history of panic, anxiety or depression. ENDOCRINE: No history of heat or cold intolerance, polyuria or polydipsia. EXTREMITIES: Denies muscle weakness, joint pain, pain on walking or stiffness. PHYSICAL EXAMINATION: VITAL SIGNS: Temperature afebrile, pulse 98, respirations 18, blood pressure 144/90. GENERAL: He is alert, cooperative. HEART: Normal S1, S2. LUNGS: Clear. ABDOMEN: Soft. EXTREMITIES: No edema. SKIN: No rash. ENDOCRINE: No thyromegaly. LYMPHATICS: No cervical nodes. HEMATOPOIETIC: No bruising. LABORATORY DATA: Hemoglobin is 12. Electrolytes are pending. Troponin is 0. ASSESSMENT AND PLAN: Chest pain. The patient has been admitted. We will check serial enzymes, serial EKGs, cardiac monitoring. Consult Cardiology. Home meds. PROGNOSIS: Guarded. GENA GONZALEZ DO DR: KELSEA/joi JOB#: [id number] / [id number]
[2018-08-02] MEDS: LOSARTAN POTASSIUM 50 MG TABLET. PO SCH (17:33)
--- NOTE | 2018-08-02 17:34 | PDOC2 ---
CONSULT Date of Consult Date of Consult DATE: 08/02/18 TIME: 17:30 Reason for Consult Reason for Consult: Chest pain Referring Physician Referring Physician: Dr Bajwa Identification/Chief Complaint Chief Complaint Chest pain History of Present Illness Reason for Visit: This patient is a 58-year-old gentleman that has a known history of mild coronary artery disease. His last heart catheterization was about 5 or 6 years ago and he was found to have mild stenosis of some of the small vessels. He is obese and has hypertension. The patient was at home when he started having sharp chest pains that were sustained and brought him to the emergency room. After arrival in the ER his EKG did not show any acute ST changes and the first 2 sets of troponin have been negative. The time that I saw the patient he denies having any chest pains at this point. Past Medical History Cardiovascular: CAD, HTN, Other Pulmonary: COPD CENTRAL NERVOUS SYSTEM: TIA GI: GERD Heme/Onc: Cancer Psych: Depression Musculoskeletal: Osteoarthritis Infectious disease: No pertinent hx Renal/: Benign prostatic enlarg. Endocrine: Diabetes Past Surgical History Past Surgical History: Cholecystectomy, Colon Resection, Other Family History Family History: Hypertension Social History ALCOHOL: none Drugs: None Lives: with Family Domestic Violence: Neg Current Problem List Problem List Problems Medical Problems: (1) Chest pain Status: Acute (2) Type 2 diabetes mellitus Status: Acute Current Medications Current Medications Current Medications Aspirin (Children'S Aspirin) 324 mg 1X ONCE PO Last administered on 08/01/18at 17:39; Start 08/01/18 at 17:30; Stop 08/01/18 at 17:31; Status DC Morphine Sulfate (Morphine Sulfate) 4 mg 1X ONCE IV Last administered on at 18:44; Start 08/01/18 at 18:30; Stop 08/01/18 at 18:31; Status DC Ondansetron HCl (Zofran) 4 mg 1X ONCE IV Last administered on 08/01/18at 18:40 ; Start 08/01/18 at 18:30; Stop 08/01/18 at 18:31; Status DC Magnesium Sulfate 50 ml @ 25 mls/hr 1X ONCE IV Last administered on 08/01/18at 19:29; Start 08/01/18 at 19:00; Stop 08/01/18 at 21:00; Status DC Ondansetron HCl (Zofran) 4 mg PRN Q6HRS PRN IV NAUSEA/VOMITING 1ST CHOICE; Start 08/01/18 at 21:00 Ondansetron HCl (Zofran Odt) 4 mg PRN Q6HRS PRN PO NAUSEA/VOMITING 1ST CHOICE; Start 08/01/18 at 21:00 Acetaminophen (Tylenol) 500 mg PRN Q6HRS PRN PO MILD PAIN / TEMP; Start at 21:00 Tramadol HCl (Ultram) 50 mg PRN Q6HRS PRN PO MODERATE PAIN Last administered on 08/02/18at 11:51; Start 08/01/18 at 21:00 Ibuprofen (Motrin) 600 mg PRN Q6HRS PRN PO INFLAMMATION; Start 08/01/18 at 21: 00 Zolpidem Tartrate (Ambien) 5 mg PRN QHS PRN PO INSOMNIA; Start 08/01/18 at 21: 00 Labetalol HCl (Normodyne Iv Push) 10 mg PRN Q2HR PRN IVP HYPERTENSION, SEE COMMENTS; Start 08/01/18 at 21:00 Atorvastatin Calcium (Lipitor) 40 mg HS PO Last administered on 08/01/18at 21:58 ; Start 08/01/18 at 21:00 Bupropion HCl (Wellbutrin Xl) 150 mg DAILYWBKFT PO Last administered on at 11:52; Start 08/02/18 at 08:00 Citalopram Hydrobromide (CeleXA) 20 mg DAILY PO Last administered on 08/02/18at 11:52; Start 08/02/18 at 09:00 Clopidogrel Bisulfate (Plavix) 75 mg DAILY PO Last administered on 08/02/18at 11 :52; Start 08/02/18 at 09:00 Ergocalciferol (Vitamin D2) 50,000 unit WEEKLY PO ; Start 08/08/18 at 09:00 Furosemide (Lasix) 20 mg DAILY PO Last administered on 08/02/18at 11:53; Start 08/02/18 at 09:00 Acetaminophen/ Hydrocodone Bitart (Lortab 5/325) 1 tab PRN Q6HRS PRN PO MODERATE PAIN Last administered on 08/02/18at 13:09; Start 08/01/18 at 21:00 Acetaminophen/ Hydrocodone Bitart (Lortab 5/325) 1 tab PRN Q6HRS PRN PO PAIN; Start 08/01/18 at 21:00; Status UNV Nitroglycerin (Nitrostat) 0.4 mg PRN Q5MIN PRN SL CHEST PAIN; Start 08/01/18 at 21:00 Ondansetron HCl (Zofran Odt) 4 mg PRN BID PRN PO NAUSEA/VOMITING 1ST CHOICE; Start 08/01/18 at 21:00; Status Cancel Tamsulosin HCl (Flomax) 0.4 mg HS PO Last administered on 08/01/18at 21:58; Start 08/01/18 at 21:00 Benzonatate (Tessalon Perle) 100 mg PRN TID PRN PO COUGH 1ST CHOICE; Start at 09:00 Insulin Human Lispro (HumaLOG) 16 units TIDWMEALS SQ Last administered on at 13:11; Start 08/02/18 at 08:00 Non-Formulary Medication (Liraglutide (Victoza 3-Marcos)) 1.2 mg DAILY SQ ; Start 08/02/18 at 09:00; Status UNV Pantoprazole Sodium (Protonix) 40 mg DAILYAC PO Last administered on 08/02/18at 11:52; Start 08/02/18 at 07:30 Ropinirole HCl (Requip) 0.25 mg DAILY PO Last administered on 08/02/18at 11:52; Start 08/02/18 at 09:00 Sennosides (Senna) 8.6 mg PRN DAILY PRN PO CONSTIPATION 1ST CHOICE; Start 08/01 at 21:45 Losartan Potassium (Cozaar) 100 mg QEVNG PO ; Start 08/02/18 at 18:00 Insulin Human Lispro (HumaLOG) 0-9 UNITS TIDWMEALS SQ ; Start 08/02/18 at 08:00 Dextrose (Dextrose 50%-Water Syringe) 12.5 gm PRN Q15MIN PRN IV SEE COMMENTS; Start 08/01/18 at 21:00 Active Scripts Active Hydrocodone-Apap 5-325 (Hydrocodone Bit/Acetaminophen) 1 Each Tablet 1 Tab PO PRN Q6HRS PRN 3 Days [place] 5-325 Tablet (Acetaminophen/Hydrocodone Bitart) 1 Each Tablet 1 Tab PO PRN Q6HRS PRN Reported Benicar (Olmesartan Medoxomil) 20 Mg Tablet 1 Tab PO BID Donepezil Hcl 5 Mg Tablet 5 Mg PO HS [blood pressure pill] PO BID [memory pill] DAILY Lantus Solostar (Insulin Glargine,Hum.rec.anlog) 100 Unit/1 Ml Insuln.pen 30 Unit SQ BID Benzonatate 100 Mg Capsule 100 Mg PO TID PRN Trazodone Hcl 50 Mg Tablet 50 Mg PO HS Tramadol Hcl 50 Mg Tablet 50 Mg PO Q4H PRN Victoza 3-Marcos (Liraglutide) 0.6 Mg/0.1 Ml Pen.injctr 1.2 Mg SQ DAILY NITROGLYCERIN SubLingual (Nitroglycerin) 0.4 Mg Tab.subl 0.4 Mg SL PRN Q5MIN PRN Novolog Flexpen (Insulin Aspart) 100 Unit/1 Ml Insuln.pen 16 Unit SQ TIDAC Vitamin D2 (Ergocalciferol (Vitamin D2)) 50,000 Unit Capsule 50,000 Unit PO WEEKLY Requip (Ropinirole Hcl) 0.5 Mg Tablet 0.25 Mg PO DAILY Omeprazole 10 Mg Capsule.dr 10 Mg PO DAILY Furosemide 20 Mg Tablet 20 Mg PO DAILY Clopidogrel (Clopidogrel Bisulfate) 75 Mg Tablet 75 Mg PO DAILY Citalopram Hbr (Citalopram Hydrobromide) 20 Mg Tablet 1 Tab PO DAILY Bupropion Xl (Bupropion Hcl) 150 Mg Tab.er.24h 1 Tab PO DAILYWBKFT Tamsulosin Hcl 0.4 Mg Cap.er.24h 1 Tab PO HS Atorvastatin Calcium 40 Mg Tablet 1 Tab PO HS Allergies Allergies: Coded Allergies: Penicillins (Verified Allergy, Intermediate, 11/14/17) codeine (Verified Allergy, Intermediate, 08/01/18) Tolerates hydrocodone and morphin Physical Exam General: Alert, Oriented X3, Cooperative HEENT: PERRLA Lungs: Clear to auscultation Heart: Regular rate, Normal S1, Normal S2 Abdomen: Normal bowel sounds, Soft Extremities: No edema Vitals VITALS Vital Signs Date Time Temp Pulse Resp B/P (MAP) Pulse Ox O2 Delivery O2 Flow Rate FiO2 08/02/18 15:24 98.4 74 14 117/66 (83) 92 Room Air 98.4 Labs Labs Laboratory Tests Test 08/01/18 17:15 08/01/18 21:55 08/01/18 23:30 08/02/18 07:45 White Blood Count 11.0 x10^3/uL (4.0-11.0) Red Blood Count 3.76 x10^6/uL (4.30-5.70) Hemoglobin 12.2 g/dL (13.0-17.5) Hematocrit 35.5 % (39.0-53.0) Mean Corpuscular Volume 94 fL (79-100) Mean Corpuscular Hemoglobin 33 pg (25-35) Mean Corpuscular Hemoglobin Concent 34 g/dL (31-37) Red Cell Distribution Width 13.7 % (11.5-14.5) Platelet Count 204 x10^3/uL (140-400) Neutrophils (%) (Auto) 58 % (31-73) Lymphocytes (%) (Auto) 32 % (24-48) Monocytes (%) (Auto) 7 % (0-9) Eosinophils (%) (Auto) 2 % (0-3) Basophils (%) (Auto) 2 % (0-3) Neutrophils # (Auto) 6.4 x10^3uL (1.8-7.7) Lymphocytes # (Auto) 3.5 x10^3/uL (1.0-4.8) Monocytes # (Auto) 0.8 x10^3/uL (0.0-1.1) Eosinophils # (Auto) 0.2 x10^3/uL (0.0-0.7) Basophils # (Auto) 0.2 x10^3/uL (0.0-0.2) Prothrombin Time 13.9 SEC (11.7-14.0) Prothromb Time International Ratio 1.1 (0.8-1.1) D-Dimer (Katlin) < 0.27 ug/mlFEU Sodium Level 142 mmol/L (136-145) Potassium Level 4.5 mmol/L (3.5-5.1) Chloride Level 104 mmol/L (98-107) Carbon Dioxide Level 26 mmol/L (21-32) Anion Gap 12 (6-14) Blood Urea Nitrogen 22 mg/dL (8-26) Creatinine 1.5 mg/dL (0.7-1.3) Estimated GFR (Cockcroft-Gault) 47.9 BUN/Creatinine Ratio 15 (6-20) Glucose Level 91 mg/dL (70-99) Calcium Level 9.7 mg/dL (8.5-10.1) Magnesium Level 1.6 mg/dL (1.8-2.4) Total Bilirubin 0.4 mg/dL (0.2-1.0) Aspartate Amino Transf (AST/SGOT) 24 U/L (15-37) Alanine Aminotransferase (ALT/SGPT) 31 U/L (16-63) Alkaline Phosphatase 55 U/L (46-116) Creatine Kinase 47 U/L (39-308) Troponin I Quantitative < 0.017 ng/mL (0.000-0.055) < 0.017 ng/mL (0.000-0.055) IH-Eci-P-Type Natriuretic Peptide 76 pg/mL (0-124) Total Protein 7.9 g/dL (6.4-8.2) Albumin 3.7 g/dL (3.4-5.0) Albumin/Globulin Ratio 0.9 (1.0-1.7) Glucose (Fingerstick) 93 mg/dL (70-99) 114 mg/dL (70-99) Test 08/02/18 08:45 08/02/18 11:32 08/02/18 16:49 Triglycerides Level 206 mg/dL (0-150) Cholesterol Level 120 mg/dL (0-200) LDL Cholesterol, Calculated 54 mg/dL (0-100) VLDL Cholesterol, Calculated 41 mg/dL (0-40) Non-HDL Cholesterol Calculated 95 mg/dL (0-129) HDL Cholesterol 25 mg/dL (40-60) Cholesterol/HDL Ratio 4.8 Glucose (Fingerstick) 102 mg/dL (70-99) 90 mg/dL (70-99) Laboratory Tests Test 08/01/18 21:55 08/01/18 23:30 08/02/18 07:45 08/02/18 08:45 Troponin I Quantitative < 0.017 ng/mL (0.000-0.055) Glucose (Fingerstick) 93 mg/dL (70-99) 114 mg/dL (70-99) Triglycerides Level 206 mg/dL (0-150) Cholesterol Level 120 mg/dL (0-200) LDL Cholesterol, Calculated 54 mg/dL (0-100) VLDL Cholesterol, Calculated 41 mg/dL (0-40) Non-HDL Cholesterol Calculated 95 mg/dL (0-129) HDL Cholesterol 25 mg/dL (40-60) Cholesterol/HDL Ratio 4.8 Test 08/02/18 11:32 08/02/18 16:49 Glucose (Fingerstick) 102 mg/dL (70-99) 90 mg/dL (70-99) Assessment/Plan Assessment/Plan This patient with a known history of mild coronary artery disease comes in after an episode of severe atypical chest pains. His EKG is not showing any acute ST abnormality and the first 2 sets of troponins were negative. In view of the patient's history and multiple risk factors I would like to get a Lexiscan MPI and then depending on the results of that will then decide about further workup and treatment. Thank you very much for asking me to participate in the care of this patient. HERMES LOPEZ MD Aug 02, 2018 17:34
[2018-08-02 19:00] VITALS: BP 124/77
[2018-08-02] MEDS: ATORVASTATIN CALCIUM 40 MG TABLET. PO SCH (21:16)
[2018-08-02] MEDS: TAMSULOSIN 0.4 MG CAP.ER.24H. PO SCH (21:17)
[2018-08-02 23:24] VITALS: BP 116/70
[2018-08-03 03:00] VITALS: BP 154/70
[2018-08-03 07:00] VITALS: BP 143/71
[2018-08-03] MEDS ORDERED: REGADENOSON 0.4 MG/5 ML DISP.SYRIN. IV ONE (07:45)
[2018-08-03] MEDS: INSULIN LISPRO 300 UNITS/3 ML INSULN.PEN. SQ SCH ×6 (08:00→18:09)
[2018-08-03] MEDS: CITALOPRAM 20 MG TABLET. PO SCH (09:47)
[2018-08-03] MEDS: PANTOPRAZOLE 40 MG TABLET.DR. PO SCH (09:48)
[2018-08-03] MEDS: HYDROcodone/APAP 5/325MG 1 TAB TABLET PO PRN (09:48)
[2018-08-03] MEDS: CLOPIDOGREL BISULFATE 75 MG TABLET PO SCH (09:49)
[2018-08-03] MEDS: FUROSEMIDE 20 MG TABLET PO SCH (09:49)
[2018-08-03] MEDS: rOPINIRole 0.25 MG TABLET. PO SCH (09:49)
[2018-08-03] MEDS: buPROPion XL 150 MG TAB.ER.24H. PO SCH (09:49)
[2018-08-03 11:00] VITALS: BP 141/70
--- NOTE | 2018-08-03 11:42 | RAD ---
MR#: [id number] Date of Study: 08/03/2018 Ordering Physician: HERMES LOPEZ Referring Physician: GENIA COPELAND Tech: RT Michael Fernandez) (N) APPROVED REPORT Test Type: Pharmacological Stress Nurse/Tech: Lorena Lopes RN Test Indications: chest pain Cardiac History: Hypertension, Diabetes,CAD Medications: See Electronic Medical Record Medical History: See Electronic Medical Record Resting ECG: SR Resting Heart Rate: 79 bpm Resting Blood Pressure: 136/72mmHg Pretest Chest Pain: Typical angina Nurse/Tech Notes S1,S2 and lungs are clear to auscultation. Consent: The procedure was explained to the patient in lay terms. Informed consent was witnessed. Scot eout was entered into [employer]. History and Stress Test performed by RT Michael Neal) (N) Pharm. Details Pharmacologic stress testing was performed using 0.4mg per 5ml of regadenoson given intravenously ove r 7-10 seconds. Stress Symptoms Dyspnea POST EXERCISE Reason for Termination: Infusion complete Target HR: No Max HR: 104 bpm Max Blood Pressure: 139/70mmHg Blood Pressure response to exercise: Normal blood pressure response during stress. Heart Rate response to exercise: WNL Chest Pain: No. Arrhythmia: No. ST Change: No. INTERPRETATION Stress EKG Conclusion: No evidence of stress induced EKG changes. Imaging Protocol IMAGE PROTOCOL: Stress Tc-99m/rest Tc-99m 2 days Rest: Stress: Viability: Radiopharm. Tc99m Sestamibi Dose34.6mCi Duration 15min. Img Date 08/03/2018 Inj-Img [id number]. Stress Admin Site: IV - Left ForearmAdministrator: RT Michael Neal)(N) STRESS DATA End Diast. Vol.74.0mlAv. Heart Rate78.0bpm LVEDV index BSA33.0mlCardiac Output1.7L/min End Syst. Vol.23.0mlCO Index BSA4.0L/min LVESV index BSA10.0mlMyocardial Ouxd115.0g Eject. Blmhngun00.0% Stress Scores Regional WT3.00Summed WT16.00 Regional WM0.00Summed WM3.00 LV Perfusion Normal perfusion at stress. LV Perf. Quant 17 Seg. SSS4.00 Stress Defect Extent (% LAD)0.00Rest Defect Extent (% LAD)Rev. Defect Extent (% LAD)0.00 Stress Defect Extent (% LCX) 32.50Rest Defect Extent (% LCX)Rev. Defect Extent (% LCX)0.00 Stress Defect Extent (% RCA)0.00Rest Defect Extent (% RCA)Rev. Defect Extent (% RCA)0.00 Stress Defect Extent (% MICHA)6.50Rest Defect Extent (% MICHA)Rev. Defect Extent (% MICHA)0.00 Other Information Quality:Average Risk Assessment: Low Risk Conclusion 1. No evidence of stress induced EKG changes 2. Normal perfusion at stress. Rest images not performed. 3. Normal EF at > 65% 4. Low risk study 5. Motion artifact. Signed by : Felix Jackson, Electronically Approved : 08/03/2018 11:40:44
--- NOTE | 2018-08-03 13:35 | PDOC ---
PROGRESS NOTES Chief Complaint Chief Complaint chest pain, atypical h/o CAD h/o strokes depression, diabetes, hypertension, hyperlipidemia, TIA, colon cancer, cholecystectomy, colon resection, eyes, ears, nose and throat surgery, defibrillator in his left chest, colon resection. plan: fu with card. MPI low risk today cont home meds on insulin, ssi dc soon History of Present Illness History of Present Illness ROS: no fever, chills, sob neg CE, still c/o CHEST PAIN Vitals Vitals Vital Signs Date Time Temp Pulse Resp B/P (MAP) Pulse Ox O2 Delivery O2 Flow Rate FiO2 08/03/18 11:00 Room Air 08/03/18 11:00 97.8 79 18 141/70 (93) 94 97.8 Physical Exam General: Alert, Oriented X3, Cooperative Heart: Regular rate, Normal S1, Normal S2 Lungs: Clear Abdomen: Normal bowel sounds, Soft Extremities: No clubbing, No cyanosis, No edema Labs LABS Laboratory Tests Test 08/02/18 16:49 08/02/18 21:19 08/03/18 08:21 08/03/18 11:37 Glucose (Fingerstick) 90 mg/dL (70-99) 107 mg/dL (70-99) 128 mg/dL (70-99) 215 mg/dL (70-99) Assessment and Plan Assessmemt and Plan Problems Medical Problems: (1) Chest pain Status: Acute (2) Type 2 diabetes mellitus Status: Acute Comment Review of Relevant I have reviewed the following items ofelia (where applicable) has been applied. Labs Laboratory Tests Test 08/01/18 17:15 08/01/18 21:55 08/01/18 23:30 08/02/18 07:45 White Blood Count 11.0 x10^3/uL (4.0-11.0) Red Blood Count 3.76 x10^6/uL (4.30-5.70) Hemoglobin 12.2 g/dL (13.0-17.5) Hematocrit 35.5 % (39.0-53.0) Mean Corpuscular Volume 94 fL (79-100) Mean Corpuscular Hemoglobin 33 pg (25-35) Mean Corpuscular Hemoglobin Concent 34 g/dL (31-37) Red Cell Distribution Width 13.7 % (11.5-14.5) Platelet Count 204 x10^3/uL (140-400) Neutrophils (%) (Auto) 58 % (31-73) Lymphocytes (%) (Auto) 32 % (24-48) Monocytes (%) (Auto) 7 % (0-9) Eosinophils (%) (Auto) 2 % (0-3) Basophils (%) (Auto) 2 % (0-3) Neutrophils # (Auto) 6.4 x10^3uL (1.8-7.7) Lymphocytes # (Auto) 3.5 x10^3/uL (1.0-4.8) Monocytes # (Auto) 0.8 x10^3/uL (0.0-1.1) Eosinophils # (Auto) 0.2 x10^3/uL (0.0-0.7) Basophils # (Auto) 0.2 x10^3/uL (0.0-0.2) Prothrombin Time 13.9 SEC (11.7-14.0) Prothromb Time International Ratio 1.1 (0.8-1.1) D-Dimer (Katlin) < 0.27 ug/mlFEU Sodium Level 142 mmol/L (136-145) Potassium Level 4.5 mmol/L (3.5-5.1) Chloride Level 104 mmol/L (98-107) Carbon Dioxide Level 26 mmol/L (21-32) Anion Gap 12 (6-14) Blood Urea Nitrogen 22 mg/dL (8-26) Creatinine 1.5 mg/dL (0.7-1.3) Estimated GFR (Cockcroft-Gault) 47.9 BUN/Creatinine Ratio 15 (6-20) Glucose Level 91 mg/dL (70-99) Calcium Level 9.7 mg/dL (8.5-10.1) Magnesium Level 1.6 mg/dL (1.8-2.4) Total Bilirubin 0.4 mg/dL (0.2-1.0) Aspartate Amino Transf (AST/SGOT) 24 U/L (15-37) Alanine Aminotransferase (ALT/SGPT) 31 U/L (16-63) Alkaline Phosphatase 55 U/L (46-116) Creatine Kinase 47 U/L (39-308) Troponin I Quantitative < 0.017 ng/mL (0.000-0.055) < 0.017 ng/mL (0.000-0.055) BJ-Swm-Y-Type Natriuretic Peptide 76 pg/mL (0-124) Total Protein 7.9 g/dL (6.4-8.2) Albumin 3.7 g/dL (3.4-5.0) Albumin/Globulin Ratio 0.9 (1.0-1.7) Glucose (Fingerstick) 93 mg/dL (70-99) 114 mg/dL (70-99) Test 08/02/18 08:45 08/02/18 11:32 08/02/18 16:49 08/02/18 21:19 Triglycerides Level 206 mg/dL (0-150) Cholesterol Level 120 mg/dL (0-200) LDL Cholesterol, Calculated 54 mg/dL (0-100) VLDL Cholesterol, Calculated 41 mg/dL (0-40) Non-HDL Cholesterol Calculated 95 mg/dL (0-129) HDL Cholesterol 25 mg/dL (40-60) Cholesterol/HDL Ratio 4.8 Glucose (Fingerstick) 102 mg/dL (70-99) 90 mg/dL (70-99) 107 mg/dL (70-99) Test 08/03/18 08:21 08/03/18 11:37 Glucose (Fingerstick) 128 mg/dL (70-99) 215 mg/dL (70-99) Laboratory Tests Test 08/02/18 16:49 08/02/18 21:19 08/03/18 08:21 08/03/18 11:37 Glucose (Fingerstick) 90 mg/dL (70-99) 107 mg/dL (70-99) 128 mg/dL (70-99) 215 mg/dL (70-99) Medications Current Medications Aspirin (Children'S Aspirin) 324 mg 1X ONCE PO Last administered on 08/01/18at 17:39; Start 08/01/18 at 17:30; Stop 08/01/18 at 17:31; Status DC Morphine Sulfate (Morphine Sulfate) 4 mg 1X ONCE IV Last administered on at 18:44; Start 08/01/18 at 18:30; Stop 08/01/18 at 18:31; Status DC Ondansetron HCl (Zofran) 4 mg 1X ONCE IV Last administered on 08/01/18at 18:40 ; Start 08/01/18 at 18:30; Stop 08/01/18 at 18:31; Status DC Magnesium Sulfate 50 ml @ 25 mls/hr 1X ONCE IV Last administered on 08/01/18at 19:29; Start 08/01/18 at 19:00; Stop 08/01/18 at 21:00; Status DC Ondansetron HCl (Zofran) 4 mg PRN Q6HRS PRN IV NAUSEA/VOMITING 1ST CHOICE; Start 08/01/18 at 21:00 Ondansetron HCl (Zofran Odt) 4 mg PRN Q6HRS PRN PO NAUSEA/VOMITING 1ST CHOICE; Start 08/01/18 at 21:00 Acetaminophen (Tylenol) 500 mg PRN Q6HRS PRN PO MILD PAIN / TEMP; Start at 21:00 Tramadol HCl (Ultram) 50 mg PRN Q6HRS PRN PO MODERATE PAIN Last administered on 08/02/18at 11:51; Start 08/01/18 at 21:00 Ibuprofen (Motrin) 600 mg PRN Q6HRS PRN PO INFLAMMATION; Start 08/01/18 at 21: 00 Zolpidem Tartrate (Ambien) 5 mg PRN QHS PRN PO INSOMNIA; Start 08/01/18 at 21: 00 Labetalol HCl (Normodyne Iv Push) 10 mg PRN Q2HR PRN IVP HYPERTENSION, SEE COMMENTS; Start 08/01/18 at 21:00 Atorvastatin Calcium (Lipitor) 40 mg HS PO Last administered on 08/02/18at 21:16 ; Start 08/01/18 at 21:00 Bupropion HCl (Wellbutrin Xl) 150 mg DAILYWBKFT PO Last administered on at 09:49; Start 08/02/18 at 08:00 Citalopram Hydrobromide (CeleXA) 20 mg DAILY PO Last administered on 08/03/18at 09:47; Start 08/02/18 at 09:00 Clopidogrel Bisulfate (Plavix) 75 mg DAILY PO Last administered on 08/03/18at 09 :49; Start 08/02/18 at 09:00 Ergocalciferol (Vitamin D2) 50,000 unit WEEKLY PO ; Start 08/08/18 at 09:00 Furosemide (Lasix) 20 mg DAILY PO Last administered on 08/03/18at 09:49; Start 08/02/18 at 09:00 Acetaminophen/ Hydrocodone Bitart (Lortab 5/325) 1 tab PRN Q6HRS PRN PO SEVERE PAIN Last administered on 08/03/18at 09:48; Start 08/01/18 at 21:00 Acetaminophen/ Hydrocodone Bitart (Lortab 5/325) 1 tab PRN Q6HRS PRN PO PAIN; Start 08/01/18 at 21:00; Status UNV Nitroglycerin (Nitrostat) 0.4 mg PRN Q5MIN PRN SL CHEST PAIN; Start 08/01/18 at 21:00 Ondansetron HCl (Zofran Odt) 4 mg PRN BID PRN PO NAUSEA/VOMITING 1ST CHOICE; Start 08/01/18 at 21:00; Status Cancel Tamsulosin HCl (Flomax) 0.4 mg HS PO Last administered on 08/02/18at 21:17; Start 08/01/18 at 21:00 Benzonatate (Tessalon Perle) 100 mg PRN TID PRN PO COUGH 1ST CHOICE; Start at 09:00 Insulin Human Lispro (HumaLOG) 16 units TIDWMEALS SQ Last administered on at 12:45; Start 08/02/18 at 08:00 Non-Formulary Medication (Liraglutide (Victoza 3-Marcos)) 1.2 mg DAILY SQ ; Start 08/02/18 at 09:00; Stop 08/03/18 at 07:26; Status DC Pantoprazole Sodium (Protonix) 40 mg DAILYAC PO Last administered on 08/03/18at 09:48; Start 08/02/18 at 07:30 Ropinirole HCl (Requip) 0.25 mg DAILY PO Last administered on 08/03/18at 09:49; Start 08/02/18 at 09:00 Sennosides (Senna) 8.6 mg PRN DAILY PRN PO CONSTIPATION 1ST CHOICE; Start 08/01 at 21:45 Losartan Potassium (Cozaar) 100 mg QEVNG PO ; Start 08/02/18 at 18:00 Insulin Human Lispro (HumaLOG) 0-9 UNITS TIDWMEALS SQ ; Start 08/02/18 at 08:00 Dextrose (Dextrose 50%-Water Syringe) 12.5 gm PRN Q15MIN PRN IV SEE COMMENTS; Start 08/01/18 at 21:00 Regadenoson (Lexiscan) 0.4 mg 1X ONCE IV Last administered on 08/03/18at 08:52 ; Start 08/03/18 at 07:45; Stop 08/03/18 at 07:46; Status DC Active Scripts Active Hydrocodone-Apap 5-325 (Hydrocodone Bit/Acetaminophen) 1 Each Tablet 1 Tab PO PRN Q6HRS PRN 3 Days [place] 5-325 Tablet (Acetaminophen/Hydrocodone Bitart) 1 Each Tablet 1 Tab PO PRN Q6HRS PRN Reported Benicar (Olmesartan Medoxomil) 20 Mg Tablet 1 Tab PO BID Donepezil Hcl 5 Mg Tablet 5 Mg PO HS [blood pressure pill] PO BID [memory pill] DAILY Lantus Solostar (Insulin Glargine,Hum.rec.anlog) 100 Unit/1 Ml Insuln.pen 30 Unit SQ BID Benzonatate 100 Mg Capsule 100 Mg PO TID PRN Trazodone Hcl 50 Mg Tablet 50 Mg PO HS Tramadol Hcl 50 Mg Tablet 50 Mg PO Q4H PRN Victoza 3-Marcos (Liraglutide) 0.6 Mg/0.1 Ml Pen.injctr 1.2 Mg SQ DAILY NITROGLYCERIN SubLingual (Nitroglycerin) 0.4 Mg Tab.subl 0.4 Mg SL PRN Q5MIN PRN Novolog Flexpen (Insulin Aspart) 100 Unit/1 Ml Insuln.pen 16 Unit SQ TIDAC Vitamin D2 (Ergocalciferol (Vitamin D2)) 50,000 Unit Capsule 50,000 Unit PO WEEKLY Requip (Ropinirole Hcl) 0.5 Mg Tablet 0.25 Mg PO DAILY Omeprazole 10 Mg Capsule.dr 10 Mg PO DAILY Furosemide 20 Mg Tablet 20 Mg PO DAILY Clopidogrel (Clopidogrel Bisulfate) 75 Mg Tablet 75 Mg PO DAILY Citalopram Hbr (Citalopram Hydrobromide) 20 Mg Tablet 1 Tab PO DAILY Bupropion Xl (Bupropion Hcl) 150 Mg Tab.er.24h 1 Tab PO DAILYWBKFT Tamsulosin Hcl 0.4 Mg Cap.er.24h 1 Tab PO HS Atorvastatin Calcium 40 Mg Tablet 1 Tab PO HS Vitals/I & O Vital Sign - Last 24 Hours 08/02/18 08/02/18 08/02/18 08/02/18 14:09 15:24 19:00 23:24 Temp 98.4 98.3 98.0 98.4 98.3 98.0 Pulse 74 74 76 Resp 16 14 20 20 B/P (MAP) 117/66 (83) 124/77 (93) 116/70 (85) Pulse Ox 94 92 98 93 O2 Delivery Room Air Room Air Room Air 08/03/18 08/03/18 08/03/18 08/03/18 03:00 07:00 09:48 11:00 Temp 98.2 99.0 97.8 98.2 99.0 97.8 Pulse 79 74 79 Resp 20 22 18 B/P (MAP) 154/70 (98) 143/71 (95) 141/70 (93) Pulse Ox 96 94 94 O2 Delivery Room Air Room Air Room Air Room Air 08/03/18 11:00 O2 Delivery Room Air Intake and Output 08/02/18 08/02/18 08/03/18 15:00 23:00 07:00 Intake Total 400 ml 800 ml 500 ml Output Total 500 ml Balance 400 ml 800 ml 0 ml LUCINA GOFF MD Aug 03, 2018 13:35
[2018-08-03 14:50] VITALS: BP 106/66
--- NOTE | 2018-08-03 17:48 | PDOC ---
PROGRESS NOTES Subjective Subjective Patient's feeling a little better today. He had the Lexiscan MPI today and has a normal left ventricular ejection fraction of about 65% and no apparent evidence of any significant ischemia. Objective Objective Vital Signs Date Time Temp Pulse Resp B/P (MAP) Pulse Ox O2 Delivery O2 Flow Rate FiO2 08/03/18 14:50 98.9 71 18 106/66 (79) 94 Room Air 98.9 Intake and Output 08/03/18 07:00 Intake Total 1700 ml Output Total 500 ml Balance 1200 ml Intake Oral 1700 ml Output Urine Total 500 ml # Voids 2 Physical Exam Physical Exam No significant changes in cardiac exam Assessment Assessment The patient's MPI shows a normal left ventricular systolic function and no evidence of ischemia. From a cardiac standpoint he may be discharged. Comment Review of Relevant I have reviewed the following items ofelia (where applicable) has been applied. Labs Laboratory Tests Test 08/01/18 21:55 08/01/18 23:30 08/02/18 07:45 08/02/18 08:45 Troponin I Quantitative < 0.017 ng/mL (0.000-0.055) Glucose (Fingerstick) 93 mg/dL (70-99) 114 mg/dL (70-99) Triglycerides Level 206 mg/dL (0-150) Cholesterol Level 120 mg/dL (0-200) LDL Cholesterol, Calculated 54 mg/dL (0-100) VLDL Cholesterol, Calculated 41 mg/dL (0-40) Non-HDL Cholesterol Calculated 95 mg/dL (0-129) HDL Cholesterol 25 mg/dL (40-60) Cholesterol/HDL Ratio 4.8 Test 08/02/18 11:32 08/02/18 16:49 08/02/18 21:19 08/03/18 08:21 Glucose (Fingerstick) 102 mg/dL (70-99) 90 mg/dL (70-99) 107 mg/dL (70-99) 128 mg/dL (70-99) Test 08/03/18 11:37 08/03/18 16:59 Glucose (Fingerstick) 215 mg/dL (70-99) 137 mg/dL (70-99) Laboratory Tests Test 08/02/18 21:19 08/03/18 08:21 08/03/18 11:37 08/03/18 16:59 Glucose (Fingerstick) 107 mg/dL (70-99) 128 mg/dL (70-99) 215 mg/dL (70-99) 137 mg/dL (70-99) Medications Current Medications Aspirin (Children'S Aspirin) 324 mg 1X ONCE PO Last administered on 08/01/18at 17:39; Start 08/01/18 at 17:30; Stop 08/01/18 at 17:31; Status DC Morphine Sulfate (Morphine Sulfate) 4 mg 1X ONCE IV Last administered on at 18:44; Start 08/01/18 at 18:30; Stop 08/01/18 at 18:31; Status DC Ondansetron HCl (Zofran) 4 mg 1X ONCE IV Last administered on 08/01/18at 18:40 ; Start 08/01/18 at 18:30; Stop 08/01/18 at 18:31; Status DC Magnesium Sulfate 50 ml @ 25 mls/hr 1X ONCE IV Last administered on 08/01/18at 19:29; Start 08/01/18 at 19:00; Stop 08/01/18 at 21:00; Status DC Ondansetron HCl (Zofran) 4 mg PRN Q6HRS PRN IV NAUSEA/VOMITING 1ST CHOICE; Start 08/01/18 at 21:00 Ondansetron HCl (Zofran Odt) 4 mg PRN Q6HRS PRN PO NAUSEA/VOMITING 1ST CHOICE; Start 08/01/18 at 21:00 Acetaminophen (Tylenol) 500 mg PRN Q6HRS PRN PO MILD PAIN / TEMP; Start at 21:00 Tramadol HCl (Ultram) 50 mg PRN Q6HRS PRN PO MODERATE PAIN Last administered on 08/02/18at 11:51; Start 08/01/18 at 21:00 Ibuprofen (Motrin) 600 mg PRN Q6HRS PRN PO INFLAMMATION; Start 08/01/18 at 21: 00 Zolpidem Tartrate (Ambien) 5 mg PRN QHS PRN PO INSOMNIA; Start 08/01/18 at 21: 00 Labetalol HCl (Normodyne Iv Push) 10 mg PRN Q2HR PRN IVP HYPERTENSION, SEE COMMENTS; Start 08/01/18 at 21:00 Atorvastatin Calcium (Lipitor) 40 mg HS PO Last administered on 08/02/18at 21:16 ; Start 08/01/18 at 21:00 Bupropion HCl (Wellbutrin Xl) 150 mg DAILYWBKFT PO Last administered on 09:49; Start 08/02/18 at 08:00 Citalopram Hydrobromide (CeleXA) 20 mg DAILY PO Last administered on 08/03/18at 09:47; Start 08/02/18 at 09:00 Clopidogrel Bisulfate (Plavix) 75 mg DAILY PO Last administered on 08/03/18at 09 :49; Start 08/02/18 at 09:00 Ergocalciferol (Vitamin D2) 50,000 unit WEEKLY PO ; Start 08/08/18 at 09:00 Furosemide (Lasix) 20 mg DAILY PO Last administered on 08/03/18 09:49; Start 08/02/18 at 09:00 Acetaminophen/ Hydrocodone Bitart (Lortab 5/325) 1 tab PRN Q6HRS PRN PO SEVERE PAIN Last administered on 08/03/18at 09:48; Start 08/01/18 at 21:00 Acetaminophen/ Hydrocodone Bitart (Lortab 5/325) 1 tab PRN Q6HRS PRN PO PAIN; Start 08/01/18 at 21:00; Status UNV Nitroglycerin (Nitrostat) 0.4 mg PRN Q5MIN PRN SL CHEST PAIN; Start 08/01/18 at 21:00 Ondansetron HCl (Zofran Odt) 4 mg PRN BID PRN PO NAUSEA/VOMITING 1ST CHOICE; Start 08/01/18 at 21:00; Status Cancel Tamsulosin HCl (Flomax) 0.4 mg HS PO Last administered on 08/02/18at 21:17; Start 08/01/18 at 21:00 Benzonatate (Tessalon Perle) 100 mg PRN TID PRN PO COUGH 1ST CHOICE; Start at 09:00 Insulin Human Lispro (HumaLOG) 16 units TIDWMEALS SQ Last administered on at 12:45; Start 08/02/18 at 08:00 Non-Formulary Medication (Liraglutide (Victoza 3-Marcos)) 1.2 mg DAILY SQ ; Start 08/02/18 at 09:00; Stop 08/03/18 at 07:26; Status DC Pantoprazole Sodium (Protonix) 40 mg DAILYAC PO Last administered on 08/03/18at 09:48; Start 08/02/18 at 07:30 Ropinirole HCl (Requip) 0.25 mg DAILY PO Last administered on 08/03/18at 09:49; Start 08/02/18 at 09:00 Sennosides (Senna) 8.6 mg PRN DAILY PRN PO CONSTIPATION 1ST CHOICE; Start 08/01 at 21:45 Losartan Potassium (Cozaar) 100 mg QEVNG PO ; Start 08/02/18 at 18:00 Insulin Human Lispro (HumaLOG) 0-9 UNITS TIDWMEALS SQ ; Start 08/02/18 at 08:00 Dextrose (Dextrose 50%-Water Syringe) 12.5 gm PRN Q15MIN PRN IV SEE COMMENTS; Start 08/01/18 at 21:00 Regadenoson (Lexiscan) 0.4 mg 1X ONCE IV Last administered on 08/03/18at 08:52 ; Start 08/03/18 at 07:45; Stop 08/03/18 at 07:46; Status DC Insulin Glargine (Lantus) 30 units BID SQ ; Start 08/03/18 at 21:00 Donepezil HCl (Aricept) 5 mg QHS PO ; Start 08/03/18 at 21:00 Active Scripts Active Hydrocodone-Apap 5-325 (Hydrocodone Bit/Acetaminophen) 1 Each Tablet 1 Tab PO PRN Q6HRS PRN 3 Days [place] 5-325 Tablet (Acetaminophen/Hydrocodone Bitart) 1 Each Tablet 1 Tab PO PRN Q6HRS PRN Reported Benicar (Olmesartan Medoxomil) 20 Mg Tablet 1 Tab PO BID Donepezil Hcl 5 Mg Tablet 5 Mg PO HS [blood pressure pill] PO BID [memory pill] DAILY Lantus Solostar (Insulin Glargine,Hum.rec.anlog) 100 Unit/1 Ml Insuln.pen 30 Unit SQ BID Benzonatate 100 Mg Capsule 100 Mg PO TID PRN Trazodone Hcl 50 Mg Tablet 50 Mg PO HS Tramadol Hcl 50 Mg Tablet 50 Mg PO Q4H PRN Victoza 3-Marcos (Liraglutide) 0.6 Mg/0.1 Ml Pen.injctr 1.2 Mg SQ DAILY NITROGLYCERIN SubLingual (Nitroglycerin) 0.4 Mg Tab.subl 0.4 Mg SL PRN Q5MIN PRN Novolog Flexpen (Insulin Aspart) 100 Unit/1 Ml Insuln.pen 16 Unit SQ TIDAC Vitamin D2 (Ergocalciferol (Vitamin D2)) 50,000 Unit Capsule 50,000 Unit PO WEEKLY Requip (Ropinirole Hcl) 0.5 Mg Tablet 0.25 Mg PO DAILY Omeprazole 10 Mg Capsule.dr 10 Mg PO DAILY Furosemide 20 Mg Tablet 20 Mg PO DAILY Clopidogrel (Clopidogrel Bisulfate) 75 Mg Tablet 75 Mg PO DAILY Citalopram Hbr (Citalopram Hydrobromide) 20 Mg Tablet 1 Tab PO DAILY Bupropion Xl (Bupropion Hcl) 150 Mg Tab.er.24h 1 Tab PO DAILYWBKFT Tamsulosin Hcl 0.4 Mg Cap.er.24h 1 Tab PO HS Atorvastatin Calcium 40 Mg Tablet 1 Tab PO HS Vitals/I & O Vital Sign - Last 24 Hours 08/02/18 08/02/18 08/03/18 08/03/18 19:00 23:24 03:00 07:00 Temp 98.3 98.0 98.2 99.0 98.3 98.0 98.2 99.0 Pulse 74 76 79 74 Resp 20 20 20 22 B/P (MAP) 124/77 (93) 116/70 (85) 154/70 (98) 143/71 (95) Pulse Ox 98 93 96 94 O2 Delivery Room Air Room Air Room Air Room Air 08/03/18 08/03/18 08/03/18 08/03/18 08:00 09:48 11:00 11:00 Temp 97.8 97.8 Pulse 79 Resp 18 B/P (MAP) 141/70 (93) Pulse Ox 94 O2 Delivery Room Air Room Air Room Air Room Air 08/03/18 14:50 Temp 98.9 98.9 Pulse 71 Resp 18 B/P (MAP) 106/66 (79) Pulse Ox 94 O2 Delivery Room Air Intake and Output 08/02/18 08/02/18 08/03/18 15:00 23:00 07:00 Intake Total 400 ml 800 ml 500 ml Output Total 500 ml Balance 400 ml 800 ml 0 ml HERMES LOPEZ MD Aug 03, 2018 17:48
[2018-08-03 18:00] VITALS: BP 106/66
[2018-08-03] MEDS: LOSARTAN POTASSIUM 50 MG TABLET. PO SCH (18:00)
--- NOTE | 2018-08-03 18:12 | PDOC3 ---
Discharge Summary Date of Admission: Aug 01, 2018 Date of Discharge: Aug 03, 2018 Follow-Up: 3-5 days Admitting Diagnosis comment: discharge diagnosis Chief Complaint chest pain, atypical h/o CAD h/o strokes depression, diabetes, hypertension, hyperlipidemia, TIA, colon cancer, cholecystectomy, colon resection, eyes, ears, nose and throat surgery, defibrillator in his left chest, colon resection. plan: fu with card. MPI low risk today cont home meds on insulin, ssi dc soon History of Present Illness History of Present Illness ROS: no fever, chills, sob neg CE, still c/o CHEST PAIN Vitals Vitals Vital Signs Date Time Temp Pulse Resp B/P (MAP) Pulse Ox O2 Delivery O2 Flow Rate FiO2 08/03/18 11:00 Room Air 08/03/18 11:00 97.8 79 18 141/70 (93) 94 97.8 Physical Exam General: Alert, Oriented X3, Cooperative Heart: Regular rate, Normal S1, Normal S2 Lungs: Clear Abdomen: Normal bowel sounds, Soft Extremities: No clubbing, No cyanosis, No edema Labs FINAL DIAGNOSIS Problems Medical Problems: (1) Chest pain Status: Acute (2) Type 2 diabetes mellitus Status: Acute Brief Hospital Course Mr. Yun is a 58 old [sex] who presented with [ ] CONDITION AT DISCHARGE: Improved Discharge Medications Current Medications Aspirin (Children'S Aspirin) 324 mg 1X ONCE PO Last administered on 08/01/18at 17:39; Start 08/01/18 at 17:30; Stop 08/01/18 at 17:31; Status DC Morphine Sulfate (Morphine Sulfate) 4 mg 1X ONCE IV Last administered on at 18:44; Start 08/01/18 at 18:30; Stop 08/01/18 at 18:31; Status DC Ondansetron HCl (Zofran) 4 mg 1X ONCE IV Last administered on 08/01/18at 18:40 ; Start 08/01/18 at 18:30; Stop 08/01/18 at 18:31; Status DC Magnesium Sulfate 50 ml @ 25 mls/hr 1X ONCE IV Last administered on 08/01/18at 19:29; Start 08/01/18 at 19:00; Stop 08/01/18 at 21:00; Status DC Ondansetron HCl (Zofran) 4 mg PRN Q6HRS PRN IV NAUSEA/VOMITING 1ST CHOICE; Start 08/01/18 at 21:00 Ondansetron HCl (Zofran Odt) 4 mg PRN Q6HRS PRN PO NAUSEA/VOMITING 1ST CHOICE; Start 08/01/18 at 21:00 Acetaminophen (Tylenol) 500 mg PRN Q6HRS PRN PO MILD PAIN / TEMP; Start at 21:00 Tramadol HCl (Ultram) 50 mg PRN Q6HRS PRN PO MODERATE PAIN Last administered on 08/02/18at 11:51; Start 08/01/18 at 21:00 Ibuprofen (Motrin) 600 mg PRN Q6HRS PRN PO INFLAMMATION; Start 08/01/18 at 21: 00 Zolpidem Tartrate (Ambien) 5 mg PRN QHS PRN PO INSOMNIA; Start 08/01/18 at 21: 00 Labetalol HCl (Normodyne Iv Push) 10 mg PRN Q2HR PRN IVP HYPERTENSION, SEE COMMENTS; Start 08/01/18 at 21:00 Atorvastatin Calcium (Lipitor) 40 mg HS PO Last administered on 08/02/18at 21:16 ; Start 08/01/18 at 21:00 Bupropion HCl (Wellbutrin Xl) 150 mg DAILYWBKFT PO Last administered on at 09:49; Start 08/02/18 at 08:00 Citalopram Hydrobromide (CeleXA) 20 mg DAILY PO Last administered on 08/03/18at 09:47; Start 08/02/18 at 09:00 Clopidogrel Bisulfate (Plavix) 75 mg DAILY PO Last administered on 08/03/18at 09 :49; Start 08/02/18 at 09:00 Ergocalciferol (Vitamin D2) 50,000 unit WEEKLY PO ; Start 08/08/18 at 09:00 Furosemide (Lasix) 20 mg DAILY PO Last administered on 08/03/18at 09:49; Start 08/02/18 at 09:00 Acetaminophen/ Hydrocodone Bitart (Lortab 5/325) 1 tab PRN Q6HRS PRN PO SEVERE PAIN Last administered on 08/03/18at 09:48; Start 08/01/18 at 21:00 Acetaminophen/ Hydrocodone Bitart (Lortab 5/325) 1 tab PRN Q6HRS PRN PO PAIN; Start 08/01/18 at 21:00; Status UNV Nitroglycerin (Nitrostat) 0.4 mg PRN Q5MIN PRN SL CHEST PAIN; Start 08/01/18 at 21:00 Ondansetron HCl (Zofran Odt) 4 mg PRN BID PRN PO NAUSEA/VOMITING 1ST CHOICE; Start 08/01/18 at 21:00; Status Cancel Tamsulosin HCl (Flomax) 0.4 mg HS PO Last administered on 08/02/18at 21:17; Start 08/01/18 at 21:00 Benzonatate (Tessalon Perle) 100 mg PRN TID PRN PO COUGH 1ST CHOICE; Start at 09:00 Insulin Human Lispro (HumaLOG) 16 units TIDWMEALS SQ Last administered on at 12:45; Start 08/02/18 at 08:00 Non-Formulary Medication (Liraglutide (Victoza 3-Marcos)) 1.2 mg DAILY SQ ; Start 08/02/18 at 09:00; Stop 08/03/18 at 07:26; Status DC Pantoprazole Sodium (Protonix) 40 mg DAILYAC PO Last administered on 08/03/18at 09:48; Start 08/02/18 at 07:30 Ropinirole HCl (Requip) 0.25 mg DAILY PO Last administered on 08/03/18at 09:49; Start 08/02/18 at 09:00 Sennosides (Senna) 8.6 mg PRN DAILY PRN PO CONSTIPATION 1ST CHOICE; Start 08/01 at 21:45 Losartan Potassium (Cozaar) 100 mg QEVNG PO ; Start 08/02/18 at 18:00 Insulin Human Lispro (HumaLOG) 0-9 UNITS TIDWMEALS SQ ; Start 08/02/18 at 08:00 Dextrose (Dextrose 50%-Water Syringe) 12.5 gm PRN Q15MIN PRN IV SEE COMMENTS; Start 08/01/18 at 21:00 Regadenoson (Lexiscan) 0.4 mg 1X ONCE IV Last administered on 08/03/18at 08:52 ; Start 08/03/18 at 07:45; Stop 08/03/18 at 07:46; Status DC Insulin Glargine (Lantus) 30 units BID SQ ; Start 08/03/18 at 21:00 Donepezil HCl (Aricept) 5 mg QHS PO ; Start 08/03/18 at 21:00 Active Scripts Active Hydrocodone-Apap 5-325 (Hydrocodone Bit/Acetaminophen) 1 Each Tablet 1 Tab PO PRN Q6HRS PRN 3 Days [place] 5-325 Tablet (Acetaminophen/Hydrocodone Bitart) 1 Each Tablet 1 Tab PO PRN Q6HRS PRN Reported Benicar (Olmesartan Medoxomil) 20 Mg Tablet 1 Tab PO BID Donepezil Hcl 5 Mg Tablet 5 Mg PO HS [blood pressure pill] PO BID [memory pill] DAILY Lantus Solostar (Insulin Glargine,Hum.rec.anlog) 100 Unit/1 Ml Insuln.pen 30 Unit SQ BID Benzonatate 100 Mg Capsule 100 Mg PO TID PRN Trazodone Hcl 50 Mg Tablet 50 Mg PO HS Tramadol Hcl 50 Mg Tablet 50 Mg PO Q4H PRN Victoza 3-Marcos (Liraglutide) 0.6 Mg/0.1 Ml Pen.injctr 1.2 Mg SQ DAILY NITROGLYCERIN SubLingual (Nitroglycerin) 0.4 Mg Tab.subl 0.4 Mg SL PRN Q5MIN PRN Novolog Flexpen (Insulin Aspart) 100 Unit/1 Ml Insuln.pen 16 Unit SQ TIDAC Vitamin D2 (Ergocalciferol (Vitamin D2)) 50,000 Unit Capsule 50,000 Unit PO WEEKLY Requip (Ropinirole Hcl) 0.5 Mg Tablet 0.25 Mg PO DAILY Omeprazole 10 Mg Capsule.dr 10 Mg PO DAILY Furosemide 20 Mg Tablet 20 Mg PO DAILY Clopidogrel (Clopidogrel Bisulfate) 75 Mg Tablet 75 Mg PO DAILY Citalopram Hbr (Citalopram Hydrobromide) 20 Mg Tablet 1 Tab PO DAILY Bupropion Xl (Bupropion Hcl) 150 Mg Tab.er.24h 1 Tab PO DAILYWBKFT Tamsulosin Hcl 0.4 Mg Cap.er.24h 1 Tab PO HS Atorvastatin Calcium 40 Mg Tablet 1 Tab PO HS Vital Signs Vital Signs Date Time Temp Pulse Resp B/P (MAP) Pulse Ox O2 Delivery O2 Flow Rate FiO2 08/03/18 14:50 98.9 71 18 106/66 (79) 94 Room Air 98.9 Labs Laboratory Tests Test 08/01/18 21:55 08/01/18 23:30 08/02/18 07:45 08/02/18 08:45 Troponin I Quantitative < 0.017 ng/mL (0.000-0.055) Glucose (Fingerstick) 93 mg/dL (70-99) 114 mg/dL (70-99) Triglycerides Level 206 mg/dL (0-150) Cholesterol Level 120 mg/dL (0-200) LDL Cholesterol, Calculated 54 mg/dL (0-100) VLDL Cholesterol, Calculated 41 mg/dL (0-40) Non-HDL Cholesterol Calculated 95 mg/dL (0-129) HDL Cholesterol 25 mg/dL (40-60) Cholesterol/HDL Ratio 4.8 Test 08/02/18 11:32 08/02/18 16:49 08/02/18 21:19 08/03/18 08:21 Glucose (Fingerstick) 102 mg/dL (70-99) 90 mg/dL (70-99) 107 mg/dL (70-99) 128 mg/dL (70-99) Test 08/03/18 11:37 08/03/18 16:59 Glucose (Fingerstick) 215 mg/dL (70-99) 137 mg/dL (70-99) Laboratory Tests Test 08/02/18 21:19 08/03/18 08:21 08/03/18 11:37 08/03/18 16:59 Glucose (Fingerstick) 107 mg/dL (70-99) 128 mg/dL (70-99) 215 mg/dL (70-99) 137 mg/dL (70-99) Allergies Allergies Coded Allergies Type Severity Reaction Last Updated Verified Penicillins Allergy Intermediate 11/14/17 Yes codeine Allergy Intermediate 08/01/18 Yes Disposition/Orders: D/C to Home GEOVANY HERRING MD Aug 03, 2018 18:12
[2018-08-03] MEDS ORDERED: DONEPEZIL HCL 5 MG TABLET. PO SCH (21:00)
[2018-08-03] MEDS ORDERED: INSULIN GLARGINE 300 UNITS/3 ML INSULN.PEN. SQ SCH (21:00)
--- NOTE | 2018-08-04 16:01 | PDOC3 ---
Discharge Summary [facility] Date of Admission: Aug 02, 2018 Discharge Date: Aug 03, 2018 Admitting Diagnosis chest pain, atypical, gi? h/o CAD h/o strokes depression, diabetes, hypertension, hyperlipidemia, TIA, colon cancer, cholecystectomy, colon resection, eyes, ears, nose and throat surgery, defibrillator in his left chest, colon resection. Final Diagnosis CONSULTS card Brief Hospital Course Mr. Ynu is a 58 old M, comes for chest pain,' CE NEG, MPI low risk. 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 Patient History: Autoimmune disorder G8 BROTHER FH: cancer of GI tract G8 SISTER Family history: Cardiovascular disease (situation) G8 BROTHER 33 FATHER 32 MOTHER G8 SISTER Disposition home CONDITION AT DISCHARGE: Improved Scheduled Atorvastatin Calcium (Atorvastatin Calcium), 1 TAB PO HS, (Reported) Bupropion Hcl (Bupropion Xl), 1 TAB PO DAILYWBKFT, (Reported) Citalopram Hydrobromide (Citalopram Hbr), 1 TAB PO DAILY, (Reported) Clopidogrel Bisulfate (Clopidogrel), 75 MG PO DAILY, (Reported) Donepezil Hcl (Donepezil Hcl), 5 MG PO HS, (Reported) Ergocalciferol (Vitamin D2) (Vitamin D2), 50,000 UNIT PO WEEKLY, (Reported) Furosemide (Furosemide), 20 MG PO DAILY, (Reported) Insulin Aspart (Novolog Flexpen), 16 UNIT SQ TIDAC, (Reported) Insulin Glargine,Hum.rec.anlog (Lantus Solostar), 30 UNIT SQ BID, (Reported) Liraglutide (Victoza 3-Marcos), 1.2 MG SQ DAILY, (Reported) Olmesartan Medoxomil (Benicar), 1 TAB PO BID, (Reported) Omeprazole (Omeprazole), 10 MG PO DAILY, (Reported) Ropinirole Hcl (Requip), 0.25 MG PO DAILY, (Reported) Tamsulosin Hcl (Tamsulosin Hcl), 1 TAB PO HS, (Reported) Trazodone Hcl (Trazodone Hcl), 50 MG PO HS, (Reported) [blood pressure pill], PO BID, (Reported) [memory pill], DAILY, (Reported) Scheduled PRN Benzonatate (Benzonatate), 100 MG PO TID PRN for COUGH, (Reported) Nitroglycerin (NITROGLYCERIN SubLingual), 0.4 MG SL PRN Q5MIN PRN for CHEST PAIN , (Reported) Tramadol Hcl (Tramadol Hcl), 50 MG PO Q4H PRN for PAIN, (Reported) Discontinued Medications Hydrocodone Bit/Acetaminophen (Hydrocodone-Apap 5-325 ), 1 TAB PO PRN Q6HRS PRN for PAIN Hydrocodone/Apap 5-325 ([place] 5-325 Tablet), 1 TAB PO PRN Q6HRS PRN for PAIN LUCINA GOFF MD Aug 04, 2018 16:01
[2018-08-08] MEDS ORDERED: ERGOCALCIFEROL (VITAMIN D2) 50,000 UNIT CAPSULE. PO SCH (09:00)
== END 2018-08-03 19:25 | disposition home or self-care (01) | DRG 392 ==
LOC: ER 16:48 → 2 SOUTH 18:32
PROVIDERS: ADMIT Internal Medicine; ATTEND Internal Medicine
DX: K21.9 Gastro-esophageal reflux disease without esophagitis (principal); Z68.41 Body mass index [BMI] 40.0-44.9, adult; I25.10 Atherosclerotic heart disease of native coronary artery without angina pectoris; F32.9 Major depressive disorder, single episode, unspecified; E11.9 Type 2 diabetes mellitus without complications; I10 Essential (primary) hypertension; E78.5 Hyperlipidemia, unspecified; E66.9 Obesity, unspecified; J44.9 Chronic obstructive pulmonary disease, unspecified; M19.90 Unspecified osteoarthritis, unspecified site; Z86.73 Personal history of transient ischemic attack (TIA), and cerebral infarction without residual deficits; Z85.038 Personal history of other malignant neoplasm of large intestine; Z90.49 Acquired absence of other specified parts of digestive tract; Z88.5 Allergy status to narcotic agent; Z88.0 Allergy status to penicillin; Z82.49 Family history of ischemic heart disease and other diseases of the circulatory system; Z95.810 Presence of automatic (implantable) cardiac defibrillator; Z86.74 Personal history of sudden cardiac arrest
CPT/HCPCS: 36415; 71045; 78452; 80053; 80061; 82550; 82962; 83735; 83880; 84484; 85025; 85379; 85610; 93005; 93017; 96365; 96374; 96375; 99406; A9500; J1815; J2270; J2405; J2785; J3475; 99285-25

== ENCOUNTER → 2018-09-10 | Outpatient (CLI) | payer OTHER ==
[~2018-09-10] MED LIST changes: +DONE5TAB7 PO; +OLME20TA17 PO; +[UNRECOGNIZED DRUG - REMARK]; +blood pressure pill PO
--- NOTE | 2018-09-10 15:11 | RAD ---
Left ankle, 3 views, 09/10/2018: HISTORY: Laceration, bruising, injury There are ossifications at the tips of the medial and lateral malleolus which appear old. No definite acute fracture or dislocation is identified. There is moderate soft tissue swelling particularly over the medial malleolus. Extensive arterial calcifications are present. IMPRESSION: No acute bony abnormality is detected. Electronically signed by: Denys Lyons MD (09/10/2018 3:08 PM) [facility]
== END | disposition home or self-care (01) ==
LOC: RAD 14:28
PROVIDERS: ATTEND Nurse Practitioner Family
DX: S99.912D Unspecified injury of left ankle, subsequent encounter (principal); I70.298 Other atherosclerosis of native arteries of extremities, other extremity; R22.42 Localized swelling, mass and lump, left lower limb; X58.XXXD Exposure to other specified factors, subsequent encounter
CPT/HCPCS: 73610

== ENCOUNTER 2018-12-06 13:37 | Emergency (ER) | payer OTHER ==
[~2018-12-06] VITALS: Ht 170.2 cm; Wt 117.9 kg
[~2018-12-06 13:37] MED LIST changes: +GABA-689 PO; -GABA400C PO; -GABA800T2 PO; +GABA800T3 PO; -HYDR-2758 PO; +HYDR-2761 PO; +HYDR-3164 PO; -HYDR-971 PO; -SENN-79 PO; +SENN-80 PO
[2018-12-06 14:24] LABS: BASO # 0.1 x10^3/uL (0.0-0.2); BASO % 1 % (0-3); EOS # 0.1 x10^3/uL (0.0-0.7); EOS % 1 % (0-3); HEMATOCRIT 36.2 % (39.0-53.0); HEMOGLOBIN 12.3 g/dL (13.0-17.5); LYMPH # 2.5 x10^3/uL (1.0-4.8); LYMPH % 26 % (24-48); MEAN CORPUSCULAR HEMOGLOBIN 32 pg (25-35); MEAN CORPUSCULAR HGB CONC 34 g/dL (31-37); MEAN CORPUSCULAR VOLUME 94 fL (79-100); MONO # 0.7 x10^3/uL (0.0-1.1); MONO % 8 % (0-9); NEUT # 6.1 x10^3uL (1.8-7.7); NEUT % 64 % (31-73); PLATELET COUNT 203 x10^3/uL (140-400); RED BLOOD COUNT 3.83 x10^6/uL (4.30-5.70); RED CELL DISTRIBUTION WIDTH 13.3 % (11.5-14.5); WHITE BLOOD COUNT 9.5 x10^3/uL (4.0-11.0)
[2018-12-06 14:31] LABS: PROTHROMBIN TIME PATIENT 13.8 SEC (11.7-14.0)
[2018-12-06 14:32] LABS: CALCIUM 9.1 mg/dL (8.5-10.1); CREATININE 1.2 mg/dL (0.7-1.3); POTASSIUM 4.1 mmol/L (3.5-5.1)
[2018-12-06 14:39] LABS: ALBUMIN 3.3 g/dL (3.4-5.0); ALBUMIN/GLOBULIN RATIO 0.8 (1.0-1.7); MAGNESIUM 1.6 mg/dL (1.8-2.4); TOTAL BILIRUBIN 0.4 mg/dL (0.2-1.0); TOTAL PROTEIN 7.5 g/dL (6.4-8.2)
--- NOTE | 2018-12-06 14:52 | RAD ---
PORTABLE CHEST 1V Clinical indications: CHEST PAIN COMPARISON: August 01, 2018. Findings: No acute lung infiltrate or pleural effusion or pulmonary edema or lung mass or pneumothorax is seen. The heart size, pulmonary vasculature, mediastinum and both darin are stable. Impression: No acute radiographic abnormality is seen. Electronically signed by: John Pugh MD (12/06/2018 2:48 PM) [id number]
[2018-12-06 15:37] VITALS: BP 159/82
[2018-12-06 15:43] LABS: AMPHETAMINE/METHAMPHETAMINE NEG (NEG); BARBITURATES NEG (NEG); BENZODIAZEPINES NEG (NEG); CANNABINOIDS NEG (NEG); COCAINE NEG (NEG); METHADONE NEG (NEG); OPIATES NEG (NEG); PHENCYCLIDINE NEG (NEG)
[2018-12-06] MEDS ORDERED: KETOROLAC 30 MG/ML VIAL. IV ONE (15:45)
--- NOTE | 2018-12-06 15:52 | PHYS DOC ---
Past Medical History Past Medical History: CAD, Cancer, CVA, Depression, Diabetes-Type II, GERD, Hypertension, TIA Additional Past Medical Histor: colon cancer Past Surgical History: Cancer Surgery, Cholecystectomy, Other Additional Past Surgical Histo: eyes,ears,nose,hand ,DEFIB LEFT CHEST,COLON RESECTION Additional Information: quit 11/16/18 Alcohol Use: None Drug Use: None Social History Narrative: clean for 8 years Adult General Chief Complaint Chief Complaint: CHEST PAIN HPI HPI Patient is a 58 year old male who brought in to emergency room by EMS because of chest pain. Patient complaining of left-sided nonexertional aching pain since 9:30 this morning as a constant pain without radiation. Patient complaining of shortness of breath without palpitation, nausea and vomiting, fever and chills, cough, change of pain with movement. Patient rated his pain 7/ 10. Patient stated because of his spatial kind of insurance he did go to insurance company and they did EKG and told him his EKG was abnormal and needed to come to emergency room. Patient had aspirin and 2 nitroglycerin by EMS without change of his pain and rated his pain 8/10 at arrival to ER and even he looks very comfortable. 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 Patient has history of hypertension and coronary artery disease and quit smoking less than 1 month ago. Review of Systems Review of Systems Constitutional: Denies fever or chills [] Eyes: Denies change in visual acuity, redness, or eye pain [] HENT: Denies nasal congestion or sore throat [] Respiratory: Denies cough, reports shortness of breath [] Cardiovascular: No additional information not addressed in HPI [] GI: Denies abdominal pain, nausea, vomiting, bloody stools or diarrhea [] : Denies dysuria or hematuria [] Musculoskeletal: Denies back pain or joint pain [] Integument: Denies rash or skin lesions [] Neurologic: Denies headache, focal weakness or sensory changes [] Endocrine: Denies polyuria or polydipsia [] All other systems were reviewed and found to be within normal limits, except as documented in this note. Current Medications Current Medications Current Medications Medications (Trade) Dose Ordered Sig/Viviana Start Time Stop Time Status Last Admin Dose Admin Ketorolac Tromethamine (Toradol 30mg Vial) 30 mg 1X ONCE 12/06/18 15:45 12/06/18 15:46 DC 12/06/18 15:56 30 MG Allergies Allergies Allergies Coded Allergies Type Severity Reaction Last Updated Verified Penicillins Allergy Intermediate 11/14/17 Yes codeine Allergy Intermediate 08/01/18 Yes Physical Exam Physical Exam Constitutional: Well nourished, no acute distress, non-toxic appearance. [] HENT: Normocephalic, atraumatic, oropharynx moist, no oral exudates, nose normal. [] Eyes: PERRLA, EOMI, conjunctiva normal, no discharge. [] Neck: Normal range of motion, no tenderness, supple, no stridor. [] Cardiovascular:Heart rate regular rhythm, no murmur [] Lungs & Thorax: Bilateral breath sounds clear to auscultation , left side chest wall reproducible pain[] Abdomen: Bowel sounds normal, soft, no tenderness, no masses, no pulsatile masses. [] Skin: Warm, dry, no erythema, no rash. [] Back: No tenderness, no CVA tenderness. [] Extremities: No tenderness, no cyanosis, no clubbing, ROM intact, no edema. [] Neurologic: Alert and oriented X 3, normal motor function, normal sensory function, no focal deficits noted. [] Psychologic: Affect anxious, judgement normal, mood normal. [] Current Patient Data Vital Signs Vital Signs Date Time Temp Pulse Resp B/P (MAP) Pulse Ox O2 Delivery O2 Flow Rate FiO2 12/06/18 15:37 78 16 159/82 (107) 97 Room Air 12/06/18 13:37 97.7 97.7 Lab Values Laboratory Tests Test 12/06/18 14:12 12/06/18 15:20 White Blood Count 9.5 x10^3/uL (4.0-11.0) Red Blood Count 3.83 x10^6/uL (4.30-5.70) L Hemoglobin 12.3 g/dL (13.0-17.5) L Hematocrit 36.2 % (39.0-53.0) L Mean Corpuscular Volume 94 fL (79-100) Mean Corpuscular Hemoglobin 32 pg (25-35) Mean Corpuscular Hemoglobin Concent 34 g/dL (31-37) Red Cell Distribution Width 13.3 % (11.5-14.5) Platelet Count 203 x10^3/uL (140-400) Neutrophils (%) (Auto) 64 % (31-73) Lymphocytes (%) (Auto) 26 % (24-48) Monocytes (%) (Auto) 8 % (0-9) Eosinophils (%) (Auto) 1 % (0-3) Basophils (%) (Auto) 1 % (0-3) Neutrophils # (Auto) 6.1 x10^3uL (1.8-7.7) Lymphocytes # (Auto) 2.5 x10^3/uL (1.0-4.8) Monocytes # (Auto) 0.7 x10^3/uL (0.0-1.1) Eosinophils # (Auto) 0.1 x10^3/uL (0.0-0.7) Basophils # (Auto) 0.1 x10^3/uL (0.0-0.2) Prothrombin Time 13.8 SEC (11.7-14.0) Prothrombin Time INR 1.1 (0.8-1.1) Sodium Level 138 mmol/L (136-145) Potassium Level 4.1 mmol/L (3.5-5.1) Chloride Level 105 mmol/L (98-107) Carbon Dioxide Level 30 mmol/L (21-32) Anion Gap 3 (6-14) L Blood Urea Nitrogen 15 mg/dL (8-26) Creatinine 1.2 mg/dL (0.7-1.3) Estimated GFR (Cockcroft-Gault) 62.0 BUN/Creatinine Ratio 13 (6-20) Glucose Level 137 mg/dL (70-99) H Calcium Level 9.1 mg/dL (8.5-10.1) Magnesium Level 1.6 mg/dL (1.8-2.4) L Total Bilirubin 0.4 mg/dL (0.2-1.0) Aspartate Amino Transferase (AST) 23 U/L (15-37) Alanine Aminotransferase (ALT) 31 U/L (16-63) Alkaline Phosphatase 69 U/L (46-116) Creatine Kinase 40 U/L (39-308) Troponin I Quantitative < 0.017 ng/mL (0.000-0.055) RK-Idv-U-Type Natriuretic Peptide 54 pg/mL (0-124) Total Protein 7.5 g/dL (6.4-8.2) Albumin 3.3 g/dL (3.4-5.0) L Albumin/Globulin Ratio 0.8 (1.0-1.7) L Lipase 207 U/L (73-393) Urine Opiates Screen Neg (NEG) Urine Methadone Screen Neg (NEG) Urine Barbiturates Neg (NEG) Urine Phencyclidine Screen Neg (NEG) Urine Amphetamine/Methamphetamine Neg (NEG) Urine Benzodiazepines Screen Neg (NEG) Urine Cocaine Screen Neg (NEG) Urine Cannabinoids Screen Neg (NEG) Urine Ethyl Alcohol Neg (NEG) Laboratory Tests 12/06/18 14:12 Laboratory Tests 12/06/18 14:12 EKG EKG EKG interpreted by me. EKG at 1437 showed normal sinus rhythm at rate of 74, no acute ST and T-wave abnormalities. Radiology/Procedures Radiology/Procedures [facility] [address] [place] [address] IMAGING REPORT Signed PATIENT: JORGE KINGSLEY ACCOUNT: [id number] : 1960 LOCATION: ER AGE: 58 SEX: M EXAM STATUS: REG ER ORD. PHYSICIAN: SHREYAS LEW MD REASON: chest pain PROCEDURE: PORTABLE CHEST 1V PORTABLE CHEST 1V Clinical indications: CHEST PAIN COMPARISON: August 01, 2018. Findings: No acute lung infiltrate or pleural effusion or pulmonary edema or lung mass or pneumothorax is seen. The heart size, pulmonary vasculature, mediastinum and both darin are stable. Impression: No acute radiographic abnormality is seen. Electronically signed by: Linda Pugh MD (12/06/2018 2:48 PM) [facility] DICTATED and SIGNED BY: LINDA PUGH MD DATE: 12/06/18 2235 Course & Med Decision Making Course & Med Decision Making Pertinent Labs and Imaging studies reviewed. (See chart for details) Evaluation of patient in ER showed 58-year-old male patient brought in by EMS because of chest pain. Patient had reproducible left-sided chest pain unremarkable EKG and chest x-ray and labs. Patient had episodes of the same pain with diagnosis of noncardiac chest pain. Plan to give patient Toradol in ER and discharge patient home with diagnosis of noncardiac chest pain. Dragon Disclaimer Dragon Disclaimer This electronic medical record was generated, in whole or in part, using a voice recognition dictation system. Departure Departure Impression: Primary Impression: Musculoskeletal chest pain Disposition: HOME, SELF-CARE (@1600) Condition: IMPROVED Referrals: STEVEN CUTLER DO (PCP) Patient Instructions: Chest Wall Pain Additional Instructions: Follow-up with your primary care physician in 3-5 days Return to ER if not getting better SHREYAS LEW MD Dec 06, 2018 15:52
--- NOTE | 2018-12-06 16:06 | EKG ---
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
== END 2018-12-06 16:02 | disposition home or self-care (01) ==
LOC: ER 13:37
DX: R07.89 Other chest pain (principal); R06.02 Shortness of breath; R00.2 Palpitations; I25.10 Atherosclerotic heart disease of native coronary artery without angina pectoris; K21.9 Gastro-esophageal reflux disease without esophagitis; E11.9 Type 2 diabetes mellitus without complications; I10 Essential (primary) hypertension; Z86.73 Personal history of transient ischemic attack (TIA), and cerebral infarction without residual deficits; Z98.890 Other specified postprocedural states; Z87.891 Personal history of nicotine dependence; Z88.0 Allergy status to penicillin; Z88.5 Allergy status to narcotic agent
CPT/HCPCS: 36415; 71045; 80053; 80307; 82550; 83690; 83735; 83880; 84484; 85025; 85610; 93005; 96374; 99284; J1885

== ENCOUNTER 2019-06-19 19:57 | Observation (INO) | payer OTHER ==
[~2019-06-19] VITALS: Ht 167.6 cm; Wt 117.1 kg
[~2019-06-19 19:57] MED LIST changes: +CEPH-264 PO; -GABA800T3 PO; +GABA800T5 PO; -OMEP10CA3 PO; +OMEP10CA4 PO; -PANT40TA3 PO; +PANT40TA77 PO; +SULF1TAB24 PO; +TRAZ-118 PO; -TRAZ-85 PO
--- NOTE | 2019-06-19 20:09 | PHYS DOC ---
Past Medical History Past Medical History: CAD, Cancer, CVA, Depression, Diabetes-Type II, GERD, Hypertension, TIA Additional Past Medical Histor: colon cancer Past Surgical History: Cancer Surgery, Cholecystectomy, Other Additional Past Surgical Histo: eyes,ears,nose,hand ,DEFIB LEFT CHEST,COLON RE SECTION Alcohol Use: None Drug Use: None Adult General Chief Complaint Chief Complaint: CHEST PAIN HPI HPI Patient is a 59 year old m p/w chest pain since thursday varying quality sometimes dull somedtimes sharp now pressure has been constant since thursday though prior cad mild stenosis five years ago mpi low risk last year hx of colon cancer, s/p cholecystectomy painmoderate in nature RADIATES to jaw and arm sometimes worse with walking still smoking. used crack cocaine nine years ago. Review of Systems Review of Systems Constitutional: Denies fever or chills [] Eyes: Denies change in visual acuity, redness, or eye pain [] HENT: Denies nasal congestion or sore throat [] Musculoskeletal: Denies back pain or joint pain [] Integument: Denies rash or skin lesions [] Neurologic: Denies headache, focal weakness or sensory changes [] All other systems were reviewed and found to be within normal limits, except as documented in this note. Current Medications Current Medications Current Medications Medications (Trade) Dose Ordered Sig/Viviana Start Time Stop Time Status Last Admin Dose Admin Aspirin (Children'S Aspirin) 324 mg 1X ONCE 06/19/19 20:15 06/19/19 20:16 DC 06/19/19 20:21 324 MG Nitroglycerin (Nitrostat) 0.4 mg PRN Q5MIN PRN 06/19/19 21:45 06/20/19 21:44 Allergies Allergies Allergies Coded Allergies Type Severity Reaction Last Updated Verified Penicillins Allergy Intermediate 11/14/17 Yes codeine Allergy Intermediate 08/01/18 Yes Physical Exam Physical Exam Constitutional: Well developed, over nourished, no acute distress, non-toxic appearance. [] HENT: Normocephalic, atraumatic, bilateral external ears normal, oropharynx moist, no oral exudates, nose normal. [] Eyes: PERRLA, EOMI, conjunctiva normal, no discharge. [] Neck: Normal range of motion, no tenderness, supple, no stridor. [] Cardiovascular:Heart rate regular rhythm, no murmur [] Lungs & Thorax: Bilateral breath sounds clear to auscultation [] Abdomen: Bowel sounds normal, soft, no tenderness, no masses, no pulsatile masses. [] Skin: Warm, dry, no erythema, no rash. [] Back: No tenderness, no CVA tenderness. [] Extremities: No tenderness, no cyanosis, no clubbing, ROM intact, one plus edema Neurologic: Alert and oriented X 3, normal motor function, normal sensory function, no focal deficits noted. [] Psychologic: Affect normal, judgement normal, mood normal. [] Current Patient Data Vital Signs Vital Signs Date Time Temp Pulse Resp B/P (MAP) Pulse Ox O2 Delivery O2 Flow Rate FiO2 06/19/19 20:05 98.3 77 16 169/84 (112) 95 Room Air 98.3 Lab Values Laboratory Tests Test 06/19/19 20:35 06/19/19 21:15 White Blood Count 10.0 x10^3/uL (4.0-11.0) Red Blood Count 3.78 x10^6/uL (4.30-5.70) L Hemoglobin 12.3 g/dL (13.0-17.5) L Hematocrit 36.2 % (39.0-53.0) L Mean Corpuscular Volume 96 fL (79-100) Mean Corpuscular Hemoglobin 33 pg (25-35) Mean Corpuscular Hemoglobin Concent 34 g/dL (31-37) Red Cell Distribution Width 14.2 % (11.5-14.5) Platelet Count 191 x10^3/uL (140-400) Neutrophils (%) (Auto) 64 % (31-73) Lymphocytes (%) (Auto) 26 % (24-48) Monocytes (%) (Auto) 7 % (0-9) Eosinophils (%) (Auto) 2 % (0-3) Basophils (%) (Auto) 1 % (0-3) Neutrophils # (Auto) 6.5 x10^3/uL (1.8-7.7) Lymphocytes # (Auto) 2.6 x10^3/uL (1.0-4.8) Monocytes # (Auto) 0.7 x10^3/uL (0.0-1.1) Eosinophils # (Auto) 0.2 x10^3/uL (0.0-0.7) Basophils # (Auto) 0.1 x10^3/uL (0.0-0.2) Segmented Neutrophils % 71 % (35-66) H Lymphocytes % 26 % (24-48) Monocytes % 2 % (0-10) Eosinophils % 1 % (0-5) Platelet Estimate Adequate (ADEQUATE) Prothrombin Time 13.4 SEC (11.7-14.0) Prothrombin Time INR 1.1 (0.8-1.1) D-Dimer ([place]) 0.41 ug/mlFEU (0.00-0.50) Sodium Level 143 mmol/L (136-145) Potassium Level 4.5 mmol/L (3.5-5.1) Chloride Level 106 mmol/L (98-107) Carbon Dioxide Level 26 mmol/L (21-32) Anion Gap 11 (6-14) Blood Urea Nitrogen 22 mg/dL (8-26) Creatinine 1.3 mg/dL (0.7-1.3) Estimated GFR (Cockcroft-Gault) 56.3 BUN/Creatinine Ratio 17 (6-20) Glucose Level 255 mg/dL (70-99) H Calcium Level 8.5 mg/dL (8.5-10.1) Total Bilirubin 0.3 mg/dL (0.2-1.0) Aspartate Amino Transferase (AST) 19 U/L (15-37) Alanine Aminotransferase (ALT) 27 U/L (16-63) Alkaline Phosphatase 69 U/L (46-116) Troponin I Quantitative < 0.017 ng/mL (0.000-0.055) ND-Eli-K-Type Natriuretic Peptide 193 pg/mL (0-124) H Total Protein 7.4 g/dL (6.4-8.2) Albumin 3.3 g/dL (3.4-5.0) L Albumin/Globulin Ratio 0.8 (1.0-1.7) L Urine Opiates Screen Neg (NEG) Urine Methadone Screen Neg (NEG) Urine Barbiturates Neg (NEG) Urine Phencyclidine Screen Neg (NEG) Urine Amphetamine/Methamphetamine Neg (NEG) Urine Benzodiazepines Screen Neg (NEG) Urine Cocaine Screen Neg (NEG) Urine Cannabinoids Screen Neg (NEG) Urine Ethyl Alcohol Neg (NEG) Laboratory Tests 06/19/19 20:35 Laboratory Tests 06/19/19 20:35 EKG EKG nsr rate 75 no ischemic changes noted. similar to 12/06/18[] Radiology/Procedures Radiology/Procedures [] Impressions: CXR MY INTERP NEG ACUTE Course & Med Decision Making Course & Med Decision Making Pertinent Labs and Imaging studies reviewed. (See chart for details) []/o strokes depression, diabetes, hypertension, hyperlipidemia, TIA, colon cancer, cholecystectomy, colon resection, eyes, ears, nose and throat surgery, defibrillator in his left chest, colon resection. chest pain r/o mi admit for monitoring ddimer NEG TROP/EKG LOOK GOOD ATYPICAL TYPE PAIN ADMIT CASTLE FOR RULE OUT/CARDIOLOGY CONSULT KNOWN CAD. Dragon Disclaimer Dragon Disclaimer This electronic medical record was generated, in whole or in part, using a voice recognition dictation system. Departure Departure Impression: Primary Impression: Chest pain Disposition: ADMITTED INPATIENT Admitting Physician: JOSE M Condition: STABLE Referrals: STEVEN CUTLER DO (PCP) JORGE TAYLOR MD Jun 19, 2019 20:08
[2019-06-19] MEDS ORDERED: ASPIRIN CHEWABLE 81 MG TABLET. PO ONE (20:15)
[2019-06-19 20:45] LABS: BASO # 0.1 x10^3/uL (0.0-0.2); BASO % 1 % (0-3); EOS # 0.2 x10^3/uL (0.0-0.7); EOS % 2 % (0-3); HEMATOCRIT 36.2 % (39.0-53.0); HEMOGLOBIN 12.3 g/dL (13.0-17.5); LYMPH # 2.6 x10^3/uL (1.0-4.8); LYMPH % 26 % (24-48); MEAN CORPUSCULAR HEMOGLOBIN 33 pg (25-35); MEAN CORPUSCULAR HGB CONC 34 g/dL (31-37); MEAN CORPUSCULAR VOLUME 96 fL (79-100); MONO # 0.7 x10^3/uL (0.0-1.1); MONO % 7 % (0-9); NEUT # 6.5 x10^3/uL (1.8-7.7); NEUT % 64 % (31-73); PLATELET COUNT 191 x10^3/uL (140-400); RED BLOOD COUNT 3.78 x10^6/uL (4.30-5.70); RED CELL DISTRIBUTION WIDTH 14.2 % (11.5-14.5)
[2019-06-19 20:55] LABS: CALCIUM 8.5 mg/dL (8.5-10.1); CREATININE 1.3 mg/dL (0.7-1.3); GFR 56.3; POTASSIUM 4.5 mmol/L (3.5-5.1); PROTHROMBIN TIME PATIENT 13.4 SEC (11.7-14.0)
[2019-06-19 21:00] LABS: ALBUMIN 3.3 g/dL (3.4-5.0); ALBUMIN/GLOBULIN RATIO 0.8 (1.0-1.7); D-DIMER 0.41 ug/mlFEU (0.00-0.50); TOTAL BILIRUBIN 0.3 mg/dL (0.2-1.0); TOTAL PROTEIN 7.4 g/dL (6.4-8.2)
[2019-06-19 21:21] LABS: % EOS 1 % (0-5); % LYMPHS 26 % (24-48); % MONOS 2 % (0-10); % SEGS 71 % (35-66); PLT ESTIMATE ADEQUATE (ADEQUATE)
[2019-06-19 21:28] LABS: BARBITURATES NEG (NEG); BENZODIAZEPINES NEG (NEG); CANNABINOIDS NEG (NEG); COCAINE NEG (NEG); METHADONE NEG (NEG); OPIATES NEG (NEG); PHENCYCLIDINE NEG (NEG)
[2019-06-19 21:29] LABS: AMPHETAMINE/METHAMPHETAMINE NEG (NEG)
[2019-06-19] MEDS ORDERED: NITROGLYCERIN SUBLINGUAL 0.4 MG BOTTLE OF 25. SL PRN ×2 (21:45→23:30)
[2019-06-19 22:15] VITALS: BP 140/85
[2019-06-20] MEDS: DONEPEZIL HCL 5 MG TABLET. PO SCH ×2 (00:01→21:18)
[2019-06-20] MEDS: traZODone 50 MG TABLET. PO SCH ×2 (00:01→21:18)
[2019-06-20] MEDS: rOPINIRole 0.25 MG TABLET. PO SCH ×2 (00:01→21:18)
[2019-06-20] MEDS: TAMSULOSIN 0.4 MG CAP.ER.24H. PO SCH ×2 (00:01→21:18)
[2019-06-20] MEDS: HYDROcodone/APAP 5/325MG 1 TAB TABLET PO PRN ×4 (00:02→22:52)
[2019-06-20] MEDS: ATORVASTATIN CALCIUM 40 MG TABLET. PO SCH ×2 (00:03→21:18)
[2019-06-20] MEDS: INSULIN GLARGINE 300 UNITS/3 ML INSULN.PEN. SQ SCH ×3 (00:06→21:22)
[2019-06-20 02:50] VITALS: BP 111/54
--- NOTE | 2019-06-20 06:55 | EKG ---
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
[2019-06-20 07:26] VITALS: BP 127/64
--- NOTE | 2019-06-20 07:51 | RAD ---
Examination: PORTABLE CHEST 1V History: Shortness of breath Comparison/Correlation: 12/06/2018 portable chest x-ray exam Findings: Portable upright frontal view chest was obtained. Right lower lobe atelectasis is present. No pneumothorax. Minimal left basilar retrocardiac atelectasis may be present. No pleural effusion. Bony structures are unremarkable. Impression: Right lower lobe atelectasis is new in the interval. Correlate with clinical history in determining further evaluation with CT of the chest with contrast if able for further assessment. Electronically signed by: Deon Guo MD (06/20/2019 7:48 AM) [facility]
[2019-06-20] MEDS: INSULIN LISPRO 300 UNITS/3 ML INSULN.PEN. SQ SCH ×3 (08:00→18:37)
[2019-06-20] MEDS: PANTOPRAZOLE 40 MG TABLET.DR. PO SCH (08:02)
--- NOTE | 2019-06-20 08:08 | PDOC1 ---
History and Physical Date of Admission Date of Admission DATE: 06/20/19 TIME: 07:58 Identification/Chief Complaint Chief Complaint Chest pain Source Source: Patient History of Present Illness History of Present Illness Mr Yun is a 59 year old m w/ PMHx Smoker, CAD, Cancer, CVA, Depression, Diabetes-Type II, GERD, Hypertension, TIA, colon cancer who p/w chest pain since Thursday (3 days ago) of varying quality, frequently sharp with constant baseline pressure. He rates it 5/10, radiating to his left arm and jawline. Worsened with exertion. He notes he was going for MRI on 06/17 at [facility] for his chronic lower back pain and was locked out of his house, so laid in his truck and got overheated. Waited for police who found his keys and allowed him to get into his home and his chest pain improved, though he had a pressure Thursday evening 06/18 that returned and was present on awakening on 06/19. He noted sharp chest pain at adventism on 06/19 that radiated into his jaw and left arm and called his PCP, was instructed to go to the ED for further evaluation. This morning on evaluation his sharp pain has improved, but still feels left sided chest pressure. He has NTG at home, but did not take any of it. Prior cad mild stenosis five years ago. mpi low risk last year in July 2018. EKG WNL, Trop negative, CXR with right atelectasis vs infiltrate, tox screen negative. BNP 193. Cr 1.3 Past Medical History Cardiovascular: CAD, HTN, Other Pulmonary: COPD CENTRAL NERVOUS SYSTEM: TIA GI: GERD Heme/Onc: Cancer Psych: Depression Musculoskeletal: Osteoarthritis Infectious disease: No pertinent hx Renal/: Benign prostatic enlarg. Endocrine: Diabetes Past Surgical History Past Surgical History: Cholecystectomy, Colon Resection, Other Family History Family History: Hypertension Social History Smoke: 1 pack per day ALCOHOL: none Drugs: None Current Problem List Problem List Problems Medical Problems: (1) Chest pain Status: Acute Current Medications Current Medications Current Medications Aspirin (Children'S Aspirin) 324 mg 1X ONCE PO Last administered on 06/19/19at 20:21; Start 06/19/19 at 20:15; Stop 06/19/19 at 20:16; Status DC Nitroglycerin (Nitrostat) 0.4 mg PRN Q5MIN PRN SL CHEST PAIN; Start 06/19/19 at 21:45; Stop 06/19/19 at 23:36; Status DC Atorvastatin Calcium (Lipitor) 40 mg HS PO Last administered on 06/20/19at 00:03; Start 06/20/19 at 00:00 Bupropion HCl (Wellbutrin Xl) 150 mg DAILYWBKFT PO ; Start 06/20/19 at 08:00 Citalopram Hydrobromide (CeleXA) 20 mg DAILY PO ; Start 06/20/19 at 09:00 Clopidogrel Bisulfate (Plavix) 75 mg DAILY PO ; Start 06/20/19 at 09:00 Ergocalciferol (Vitamin D2) 50,000 unit WEEKLY PO ; Start 06/26/19 at 09:00 Furosemide (Lasix) 20 mg DAILY PO ; Start 06/20/19 at 09:00 Acetaminophen/ Hydrocodone Bitart (Lortab 5/325) 1 tab PRN Q6HRS PRN PO MODERATE PAIN 4-6 Last administered on 06/20/19at 00:02; Start 06/19/19 at 23:30 Insulin Glargine (Lantus) 30 units BID SQ Last administered on 06/20/19at 00:06; Start 06/20/19 at 00:00 Nitroglycerin (Nitrostat) 0.4 mg PRN Q5MIN PRN SL CHEST PAIN; Start 06/19/19 at 23:30 Tamsulosin HCl (Flomax) 0.4 mg HS PO Last administered on 06/20/19at 00:01; St art 06/20/19 at 00:00 Benzonatate (Tessalon Perle) 100 mg PRN TID PRN PO COUGH; Start 06/20/19 at 09:00 Donepezil HCl (Aricept) 5 mg QHS PO Last administered on 06/20/19at 00:01; Start 06/20/19 at 00:00 Insulin Human Lispro (HumaLOG) 16 units TIDWMEALS SQ ; Start 06/20/19 at 08:00 Losartan Potassium (Cozaar) 100 mg DAILY PO ; Start 06/20/19 at 09:00 Pantoprazole Sodium (Protonix) 40 mg DAILYAC PO ; Start 06/20/19 at 07:30 Ropinirole HCl (Requip) 0.5 mg QHS PO Last administered on 06/20/19at 00:01; Start 06/20/19 at 00:00 Trazodone HCl (Desyrel) 50 mg QHS PO Last administered on 06/20/19at 00:01; Start 06/20/19 at 00:00 Active Scripts Active Novi 5-325 Tablet (Acetaminophen/Hydrocodone Bitart) 1 Each Tablet 1 Tab PO PRN Q6HRS PRN 2 Days Reported Benicar (Olmesartan Medoxomil) 20 Mg Tablet 1 Tab PO BID Donepezil Hcl 5 Mg Tablet 5 Mg PO HS Lantus Solostar (Insulin Glargine,Hum.rec.anlog) 100 Unit/1 Ml Insuln.pen 30 Unit SQ BID Benzonatate 100 Mg Capsule 100 Mg PO TID PRN Trazodone Hcl 50 Mg Tablet 50 Mg PO HS Victoza 3-Marcos (Liraglutide) 0.6 Mg/0.1 Ml Pen.injctr 1.2 Mg SQ DAILY NITROGLYCERIN SubLingual (Nitroglycerin) 0.4 Mg Tab.subl 0.4 Mg SL PRN Q5MIN PRN Novolog Flexpen (Insulin Aspart) 100 Unit/1 Ml Insuln.pen 16 Unit SQ TIDAC Vitamin D2 (Ergocalciferol (Vitamin D2)) 50,000 Unit Capsule 50,000 Unit PO WEEKLY Requip (Ropinirole Hcl) 0.5 Mg Tablet 0.5 Mg PO HS Omeprazole 10 Mg Capsule.dr 10 Mg PO DAILY Furosemide 20 Mg Tablet 20 Mg PO DAILY Clopidogrel (Clopidogrel Bisulfate) 75 Mg Tablet 75 Mg PO DAILY Citalopram Hbr (Citalopram Hydrobromide) 20 Mg Tablet 1 Tab PO DAILY Bupropion Xl (Bupropion Hcl) 150 Mg Tab.er.24h 1 Tab PO DAILYWBKFT Tamsulosin Hcl 0.4 Mg Cap.er.24h 1 Tab PO HS Atorvastatin Calcium 40 Mg Tablet 1 Tab PO HS Allergies Allergies: Coded Allergies: Penicillins (Verified Allergy, Intermediate, 11/14/17) codeine (Verified Allergy, Intermediate, 08/01/18) Tolerates hydrocodone and morphin ROS General: YES: Fatigue, Malaise; No: Chills, Night Sweats, Appetite, Other PSYCHOLOGICAL ROS: YES: Anxiety; No: Behavioral Disorder, Concentration difficultie, Decreased libido, Depression, Disorientation, Hallucinations, Hostility, Irritablity, Memory difficulties, Mood Swings, Obsessive thoughts, Physical abuse, Sexual abuse, Sleep disturbances, Suicidal ideation, Other Eyes: No Blurry vision, No Decreased vision, No Double vision, No Dry eyes, No Excessive tearing, No Eye Pain, No Itchy Eyes, No Loss of vision, No Photophobia, No Scotomata, No Uses contacts, No Uses glasses, No Other HEENT: No: Heacaches, Visual Changes, Hearing change, Nasal congestion, Nasal discharge, Oral lesions, Sinus pain, Sore Throat, Epistaxis, Sneezing, Snoring, Tinnitus, Vertigo, Vocal changes, Other ALLERGY AND IMMUNOLOGY: No: Hives, Insect Bite Sensitivity, Itchy/Watery Eyes, Nasal Congestion, Post Nasal Drip, Seasonal Allergies, Other Hematological and Lymphatic: No: Bleeding Problems, Blood Clots, Blood Transfusions, Brusing, Night Sweats, Pallor, Swollen Lymph Nodes, Other ENDOCRINE: No: Breast Changes, Galactorrhea, Hair Pattern Changes, Hot Flashes, Malaise/lethargy, Mood Swings, Palpitations, Polydipsia/polyuria, Skin Changes, Temperature Intolerance, Unexpected Weight Changes, Other Breast: No New/Changing Breast Lumps, No Nipple changes, No Nipple discharge, No Other Respiratory: YES: Shortness of breath; No: Cough, Hemoptysis, Orthopnea, Pleuritic Pain, SOB with excertion, Sputum Changes, Stridor, Tachypnea, Wheezing, Other Cardiovascular: yes Chest Pain; No Palpitations, No Orthopnea, No Paroxysmal Noc. Dyspnea, No Edema, No Lt Headedness, No Other Gastrointestinal: Yes Nausea; No Vomiting, No Abdominal Pain, No Diarrhea, No Constipation, No Melena, No Hematochezia, No Other Genitourinary: No Dysuria, No Frequency, No Incontinence, No Hematuria, No Retention, No Discharge, No Urgency, No Pain, No Flank Pain, No Other, No , No , No , No , No , No , No Musculoskeletal: No Gait Disturbance, No Joint Pain, No Joint Stiffness, No Joint Swelling, No Muscle Pain, No Muscular Weakness, No Pain In:, No Swelling In:, No Other Neurological: No Behavorial Changes, No Bowel/Bladder ControlChng, No Confusion, No Dizziness, No Gait Disturbance, No Headaches, No Impaired Coord/balance, No Memory Loss, No Numbness/Tingling, No Seizures, No Speech Problems, No Tremors, No Visual Changes, No Weakness, No Other Skin: No Dry Skin, No Eczema, No Hair Changes, No Lumps, No Mole Changes, No Mottling, No Nail Changes, No Pruritus, No Rash, No Skin Lesion Changes, No Other, No Acne Physical Exam General: Alert, Oriented X3, Cooperative, No acute distress HEENT: Atraumatic, PERRLA, EOMI, Mucous membr. moist/pink Lungs: Clear to auscultation, Normal air movement Heart: S1S2, RRR Abdomen: Normal bowel sounds, Soft, No tenderness, No hepatosplenomegaly, No masses Rectal Exam: not examined Extremities: No clubbing, No cyanosis, No edema, Normal pulses, No tenderness/swelling Skin: No rashes, No breakdown, No significant lesion Neuro: Normal gait, Normal speech, Strength at 5/5 X4 ext, Normal tone, Sensation intact, Cranial nerves 3-12 NL, Reflexes 2+ Psych/Mental Status: Mental status NL, Mood NL Vitals Vitals Vital Signs Date Time Temp Pulse Resp B/P (MAP) Pulse Ox O2 Delivery O2 Flow Rate FiO2 06/20/19 07:26 97.5 81 20 127/64 (85) 97 Room Air 97.5 Labs Labs Laboratory Tests Test 06/19/19 20:35 06/19/19 21:15 06/19/19 23:23 06/20/19 01:05 White Blood Count 10.0 x10^3/uL (4.0-11.0) Red Blood Count 3.78 x10^6/uL (4.30-5.70) Hemoglobin 12.3 g/dL (13.0-17.5) Hematocrit 36.2 % (39.0-53.0) Mean Corpuscular Volume 96 fL (79-100) Mean Corpuscular Hemoglobin 33 pg (25-35) Mean Corpuscular Hemoglobin Concent 34 g/dL (31-37) Red Cell Distribution Width 14.2 % (11.5-14.5) Platelet Count 191 x10^3/uL (140-400) Neutrophils (%) (Auto) 64 % (31-73) Lymphocytes (%) (Auto) 26 % (24-48) Monocytes (%) (Auto) 7 % (0-9) Eosinophils (%) (Auto) 2 % (0-3) Basophils (%) (Auto) 1 % (0-3) Neutrophils # (Auto) 6.5 x10^3/uL (1.8-7.7) Lymphocytes # (Auto) 2.6 x10^3/uL (1.0-4.8) Monocytes # (Auto) 0.7 x10^3/uL (0.0-1.1) Eosinophils # (Auto) 0.2 x10^3/uL (0.0-0.7) Basophils # (Auto) 0.1 x10^3/uL (0.0-0.2) Segmented Neutrophils % 71 % (35-66) Lymphocytes % 26 % (24-48) Monocytes % 2 % (0-10) Eosinophils % 1 % (0-5) Platelet Estimate Adequate (ADEQUATE) Prothrombin Time 13.4 SEC (11.7-14.0) Prothromb Time International Ratio 1.1 (0.8-1.1) D-Dimer (Katlin) 0.41 ug/mlFEU (0.00-0.50) Sodium Level 143 mmol/L (136-145) Potassium Level 4.5 mmol/L (3.5-5.1) Chloride Level 106 mmol/L (98-107) Carbon Dioxide Level 26 mmol/L (21-32) Anion Gap 11 (6-14) Blood Urea Nitrogen 22 mg/dL (8-26) Creatinine 1.3 mg/dL (0.7-1.3) Estimated GFR (Cockcroft-Gault) 56.3 BUN/Creatinine Ratio 17 (6-20) Glucose Level 255 mg/dL (70-99) Calcium Level 8.5 mg/dL (8.5-10.1) Total Bilirubin 0.3 mg/dL (0.2-1.0) Aspartate Amino Transf (AST/SGOT) 19 U/L (15-37) Alanine Aminotransferase (ALT/SGPT) 27 U/L (16-63) Alkaline Phosphatase 69 U/L (46-116) Troponin I Quantitative < 0.017 ng/mL (0.000-0.055) < 0.017 ng/mL (0.000-0.055) YY-Aby-J-Type Natriuretic Peptide 193 pg/mL (0-124) Total Protein 7.4 g/dL (6.4-8.2) Albumin 3.3 g/dL (3.4-5.0) Albumin/Globulin Ratio 0.8 (1.0-1.7) Urine Opiates Screen Neg (NEG) Urine Methadone Screen Neg (NEG) Urine Barbiturates Neg (NEG) Urine Phencyclidine Screen Neg (NEG) Urine Amphetamine/Methamphetamine Neg (NEG) Urine Benzodiazepines Screen Neg (NEG) Urine Cocaine Screen Neg (NEG) Urine Cannabinoids Screen Neg (NEG) Urine Ethyl Alcohol Neg (NEG) Glucose (Fingerstick) 155 mg/dL (70-99) Test 06/20/19 03:35 06/20/19 07:10 Troponin I Quantitative < 0.017 ng/mL (0.000-0.055) Glucose (Fingerstick) 107 mg/dL (70-99) Laboratory Tests Test 06/19/19 20:35 06/19/19 21:15 06/19/19 23:23 06/20/19 01:05 White Blood Count 10.0 x10^3/uL (4.0-11.0) Red Blood Count 3.78 x10^6/uL (4.30-5.70) Hemoglobin 12.3 g/dL (13.0-17.5) Hematocrit 36.2 % (39.0-53.0) Mean Corpuscular Volume 96 fL (79-100) Mean Corpuscular Hemoglobin 33 pg (25-35) Mean Corpuscular Hemoglobin Concent 34 g/dL (31-37) Red Cell Distribution Width 14.2 % (11.5-14.5) Platelet Count 191 x10^3/uL (140-400) Neutrophils (%) (Auto) 64 % (31-73) Lymphocytes (%) (Auto) 26 % (24-48) Monocytes (%) (Auto) 7 % (0-9) Eosinophils (%) (Auto) 2 % (0-3) Basophils (%) (Auto) 1 % (0-3) Neutrophils # (Auto) 6.5 x10^3/uL (1.8-7.7) Lymphocytes # (Auto) 2.6 x10^3/uL (1.0-4.8) Monocytes # (Auto) 0.7 x10^3/uL (0.0-1.1) Eosinophils # (Auto) 0.2 x10^3/uL (0.0-0.7) Basophils # (Auto) 0.1 x10^3/uL (0.0-0.2) Segmented Neutrophils % 71 % (35-66) Lymphocytes % 26 % (24-48) Monocytes % 2 % (0-10) Eosinophils % 1 % (0-5) Platelet Estimate Adequate (ADEQUATE) Prothrombin Time 13.4 SEC (11.7-14.0) Prothromb Time International Ratio 1.1 (0.8-1.1) D-Dimer (Katlin) 0.41 ug/mlFEU (0.00-0.50) Sodium Level 143 mmol/L (136-145) Potassium Level 4.5 mmol/L (3.5-5.1) Chloride Level 106 mmol/L (98-107) Carbon Dioxide Level 26 mmol/L (21-32) Anion Gap 11 (6-14) Blood Urea Nitrogen 22 mg/dL (8-26) Creatinine 1.3 mg/dL (0.7-1.3) Estimated GFR (Cockcroft-Gault) 56.3 BUN/Creatinine Ratio 17 (6-20) Glucose Level 255 mg/dL (70-99) Calcium Level 8.5 mg/dL (8.5-10.1) Total Bilirubin 0.3 mg/dL (0.2-1.0) Aspartate Amino Transf (AST/SGOT) 19 U/L (15-37) Alanine Aminotransferase (ALT/SGPT) 27 U/L (16-63) Alkaline Phosphatase 69 U/L (46-116) Troponin I Quantitative < 0.017 ng/mL (0.000-0.055) < 0.017 ng/mL (0.000-0.055) BQ-Usg-J-Type Natriuretic Peptide 193 pg/mL (0-124) Total Protein 7.4 g/dL (6.4-8.2) Albumin 3.3 g/dL (3.4-5.0) Albumin/Globulin Ratio 0.8 (1.0-1.7) Urine Opiates Screen Neg (NEG) Urine Methadone Screen Neg (NEG) Urine Barbiturates Neg (NEG) Urine Phencyclidine Screen Neg (NEG) Urine Amphetamine/Methamphetamine Neg (NEG) Urine Benzodiazepines Screen Neg (NEG) Urine Cocaine Screen Neg (NEG) Urine Cannabinoids Screen Neg (NEG) Urine Ethyl Alcohol Neg (NEG) Glucose (Fingerstick) 155 mg/dL (70-99) Test 06/20/19 03:35 06/20/19 07:10 Troponin I Quantitative < 0.017 ng/mL (0.000-0.055) Glucose (Fingerstick) 107 mg/dL (70-99) Images Images CXR - Right lower lobe atelectasis is new in the interval. Correlate with clinical history in determining further evaluation with CT of the chest with contrast if able for further assessment. 08/03/18 - Nuclear medicine cardiac stress testing: (did not reach target heat rate) 1. No evidence of stress induced EKG changes 2. Normal perfusion at stress. Rest images not performed. 3. Normal EF at > 65% 4. Low risk study 5. Motion artifact. VTE Prophylaxis Ordered VTE Prophylaxis Devices: Yes VTE Pharmacological Prophylaxi: Yes Assessment/Plan Assessment/Plan A/P: Chest pain - could be cardiac, angina. Possibly a good candidate for long acting nitrates. He did have negative MPI this past year. Cardiology consulted. Echo to r/o wall motion abnormalities Smoker - counseled on cessation h/o CAD - cont home meds h/o strokes - cont ASA, statin depression - con celexa, wellbutrin diabetes - A1c 7.4 approximately 2 years ago. Sliding scale, basal bolus plus while in house hypertension - cont meds hyperlipidemia - cont statin h/o colon cancer - in remission Aortic calcifications - on prior CT chest/abd/pelvis from 2018 FEN - NPO pending cardiac eval PPX - Ambulatory, SCDs while laying down FULL CODE Observation for chest pain. JAIRO VASQUEZ MD Jun 20, 2019 08:08
[2019-06-20] MEDS ORDERED: BENZONATATE 100 MG CAPSULE. PO PRN (09:00)
--- NOTE | 2019-06-20 09:23 | NUR ---
Functional screen complete. SPoke with RN who reports pt has unsteady gait and one assist with chair alarm. Pt would benefit from PT/OT eval and treat to ensure safe mobility/discharge plan. Please write PT/Ot eval and treat orders if you agree. Addendum: 06/20/19 at 0173 by DARLINE ALDRIDGE PT Amended: Links added.
--- NOTE | 2019-06-20 09:54 | PDOC2 ---
CECELIA PRESLEY LEAD ENGINEER 06/20/19 0954: CARDIAC CONSULT DATE OF CONSULT Date of Consult DATE: 06/20/19 TIME: 09:47 REASON FOR CONSULT Reason for Consult: chest pain REFERRING PHYSICIAN Referring Physician: Dr. Beyer SOURCE Source: Chart review, Patient HISTORY OF PRESENT ILLNESS HISTORY OF PRESENT ILLNESS This is a 59 yo male who presented secondary to chest pain. Patient reports he was at Thursday for an MRI. Lost his keys during visit. Sat out in hot truck for about 5 hours until they were able to find his keys. While in the heat, began having sharp pain in his left chest. No associated dizziness, palpi tations, or nausea/vomiting. Was slightly short of breath. Thursday morning, noticed some pressure in his left chest. Non-radiating. No dizziness, diaphoresis, palpitation, or SOA. Was slightly nauseated. Pain was constant with intermittent sharp pains. No specific worsening or relieving factors. Pain persisted on Thursday so he came to the ED for further evaluation and treatment. H/o non-obstructive CAD. Previously followed with Dr. Brambila. PAST MEDICAL HISTORY Cardiovascular: CAD (non-obstructive), HTN CENTRAL NERVOUS SYSTEM: CVA, Dementia GI: GERD Heme/Onc: Cancer (colon ) Psych: Depression Renal/: Chronic renal insuff Endocrine: Diabetes PAST SURGICAL HISTORY Past Surgical History: Cholecystectomy, Cataract Removal, Colon Resection FAMILY HISTORY Family History: Heart Disease (mother CHF), Hypertension SOCIAL HISTORY Smoke: <1 pack per day ALCOHOL: none Drugs: Cocaine (hx- none in 10 years ) CURRENT MEDICATIONS CURRENT MEDICATIONS Current Medications Medications (Trade) Dose Ordered Sig/Viviana Route PRN Reason Start Time Stop Time Status Last Admin Dose Admin Aspirin (Children'S Aspirin) 324 mg 1X ONCE PO 06/19/19 20:15 06/19/19 20:16 DC 06/19/19 20:21 Atorvastatin Calcium (Lipitor) 40 mg HS PO 06/20/19 00:00 06/20/19 00:03 Acetaminophen/ Hydrocodone Bitart (Lortab 5/325) 1 tab PRN Q6HRS PRN PO MODERATE PAIN 4-6 06/19/19 23:30 06/20/19 08:11 Insulin Glargine (Lantus) 30 units BID SQ 06/20/19 00:00 06/20/19 00:06 Tamsulosin HCl (Flomax) 0.4 mg HS PO 06/20/19 00:00 06/20/19 00:01 Donepezil HCl (Aricept) 5 mg QHS PO 06/20/19 00:00 06/20/19 00:01 Pantoprazole Sodium (Protonix) 40 mg DAILYAC PO 06/20/19 07:30 06/20/19 08:02 Ropinirole HCl (Requip) 0.5 mg QHS PO 06/20/19 00:00 06/20/19 00:01 Trazodone HCl (Desyrel) 50 mg QHS PO 06/20/19 00:00 06/20/19 00:01 ALLERGIES ALLERGIES: Coded Allergies: Penicillins (Verified Allergy, Intermediate, 11/14/17) codeine (Verified Allergy, Intermediate, 08/01/18) Tolerates hydrocodone and morphin ROS Review of System 14 point ROS conducted with pertinent positives noted above in HPI. PHYSICAL EXAM General: Alert, Oriented X3, Cooperative, No acute distress HEENT: Atraumatic, Mucous membr. moist/pink Lungs: Clear to auscultation, Normal air movement Heart: Regular rate, Normal S1, Normal S2 Abdomen: Soft Extremities: No edema, Normal pulses Skin: No breakdown, No significant lesion Neuro: Normal speech, Sensation intact Psych/Mental Status: Mental status NL, Mood NL MUSCULOSKELETAL: Osteoarthritic changes both hands VITALS/I&O VITALS/I&O: Vital Signs Date Time Temp Pulse Resp B/P (MAP) Pulse Ox O2 Delivery O2 Flow Rate FiO2 06/20/19 08:11 Room Air 06/20/19 07:26 97.5 81 20 127/64 (85) 97 97.5 I & O 06/19/19 06/19/19 06/20/19 15:00 23:00 07:00 Intake Total 0 ml Output Total 450 ml Balance -450 ml LABS Lab: Laboratory Tests Test 06/19/19 20:35 06/19/19 21:15 06/19/19 23:23 06/20/19 01:05 White Blood Count 10.0 x10^3/uL (4.0-11.0) Red Blood Count 3.78 x10^6/uL (4.30-5.70) L Hemoglobin 12.3 g/dL (13.0-17.5) L Hematocrit 36.2 % (39.0-53.0) L Mean Corpuscular Volume 96 fL (79-100) Mean Corpuscular Hemoglobin 33 pg (25-35) Mean Corpuscular Hemoglobin Concent 34 g/dL (31-37) Red Cell Distribution Width 14.2 % (11.5-14.5) Platelet Count 191 x10^3/uL (140-400) Neutrophils (%) (Auto) 64 % (31-73) Lymphocytes (%) (Auto) 26 % (24-48) Monocytes (%) (Auto) 7 % (0-9) Eosinophils (%) (Auto) 2 % (0-3) Basophils (%) (Auto) 1 % (0-3) Neutrophils # (Auto) 6.5 x10^3/uL (1.8-7.7) Lymphocytes # (Auto) 2.6 x10^3/uL (1.0-4.8) Monocytes # (Auto) 0.7 x10^3/uL (0.0-1.1) Eosinophils # (Auto) 0.2 x10^3/uL (0.0-0.7) Basophils # (Auto) 0.1 x10^3/uL (0.0-0.2) Segmented Neutrophils % 71 % (35-66) H Lymphocytes % 26 % (24-48) Monocytes % 2 % (0-10) Eosinophils % 1 % (0-5) Platelet Estimate Adequate (ADEQUATE) Prothrombin Time 13.4 SEC (11.7-14.0) Prothrombin Time INR 1.1 (0.8-1.1) D-Dimer (Katlin) 0.41 ug/mlFEU (0.00-0.50) Sodium Level 143 mmol/L (136-145) Potassium Level 4.5 mmol/L (3.5-5.1) Chloride Level 106 mmol/L (98-107) Carbon Dioxide Level 26 mmol/L (21-32) Anion Gap 11 (6-14) Blood Urea Nitrogen 22 mg/dL (8-26) Creatinine 1.3 mg/dL (0.7-1.3) Estimated GFR (Cockcroft-Gault) 56.3 BUN/Creatinine Ratio 17 (6-20) Glucose Level 255 mg/dL (70-99) H Calcium Level 8.5 mg/dL (8.5-10.1) Total Bilirubin 0.3 mg/dL (0.2-1.0) Aspartate Amino Transferase (AST) 19 U/L (15-37) Alanine Aminotransferase (ALT) 27 U/L (16-63) Alkaline Phosphatase 69 U/L (46-116) Troponin I Quantitative < 0.017 ng/mL (0.000-0.055) < 0.017 ng/mL (0.000-0.055) SU-Qkh-Y-Type Natriuretic Peptide 193 pg/mL (0-124) H Total Protein 7.4 g/dL (6.4-8.2) Albumin 3.3 g/dL (3.4-5.0) L Albumin/Globulin Ratio 0.8 (1.0-1.7) L Urine Opiates Screen Neg (NEG) Urine Methadone Screen Neg (NEG) Urine Barbiturates Neg (NEG) Urine Phencyclidine Screen Neg (NEG) Urine Amphetamine/Methamphetamine Neg (NEG) Urine Benzodiazepines Screen Neg (NEG) Urine Cocaine Screen Neg (NEG) Urine Cannabinoids Screen Neg (NEG) Urine Ethyl Alcohol Neg (NEG) Glucose (Fingerstick) 155 mg/dL (70-99) H Test 06/20/19 03:35 06/20/19 07:10 Troponin I Quantitative < 0.017 ng/mL (0.000-0.055) Glucose (Fingerstick) 107 mg/dL (70-99) H Laboratory Tests 06/19/19 20:35 Laboratory Tests 06/19/19 20:35 ECHOCARDIOGRAM ECHOCARDIOGRAM <Conclusion> The left ventricular systolic function is normal and the ejection fraction is within normal range. The LV EF is 55% Transmitral Doppler flow pattern is Grade I-abnormal relaxation pattern. The left atrium size is normal. The right atrium size is normal. The aortic valve is normal in structure and function. The mitral valve is normal in structure and function. The tricuspid valve is normal in structure and function. The pulmonary valve is normal in structure and function. There is a trace of pericardial effusion. DATE: 10/26/16 1310 STRESS TEST STRESS TEST Conclusion 1. No evidence of stress induced EKG changes 2. Normal perfusion at stress. Rest images not performed. 3. Normal EF at > 65% 4. Low risk study 5. Motion artifact. DATE: 08/03/18 1140 ASSESSMENT/PLAN ASSESSMENT/PLAN 1. Chest pain, atypical. AMI ruled out. Possibly GI in nature 3. Accelerated hypertension; now controlled 3. CAD, non-obstructive per cath 2013 4. Hyperlipidemia 5. Diabetes, II 6. H/o CVA Recommendations Echo to assess LV systolic function Lipids ASA Secondary prevention measures Resume home antiHTN therapy Consider outpatient ischemic evaluation unless echo significantly abnormal Supportive care LESLYE SHOOK MD 06/20/19 1558: CARDIAC CONSULT ASSESSMENT/PLAN ASSESSMENT/PLAN Patient seen and examined. Agree with [employer]'s assessment and plan. Patient with history of nonobstructive coronary artery disease presented with atypical chest pain most probably GI etiology Myocardial infarction has been ruled out Agree with 2-D echo to assess LV function and rule out wall motion abnormalities Plan ischemic evaluation as an outpatient Blood pressure better controlled since admission Thank you for your consultation CECELIA PRESLEY APRN Jun 20, 2019 09:54 LESLYE SHOOK MD Jun 20, 2019 15:58
[2019-06-20 11:07] VITALS: BP 123/57
[2019-06-20 11:12] LABS: CHOLESTEROL/HDL RATIO 5.2
[2019-06-20] MEDS: CITALOPRAM 20 MG TABLET. PO SCH (11:13)
[2019-06-20] MEDS: buPROPion XL 150 MG TAB.ER.24H. PO SCH (11:13)
[2019-06-20] MEDS: FUROSEMIDE 20 MG TABLET PO SCH (11:14)
[2019-06-20] MEDS: CLOPIDOGREL BISULFATE 75 MG TABLET PO SCH (11:14)
[2019-06-20] MEDS: LOSARTAN POTASSIUM 50 MG TABLET. PO SCH (11:15)
[2019-06-20 14:56] VITALS: BP 116/56
--- NOTE | 2019-06-20 15:25 | NUR ---
SS following for discharge planning. SS reviewed pt chart. Pt is from home and is currently on room air. Pt has services through [facility] program. SS will continue to follow for discharge planning.
--- NOTE | 2019-06-20 17:01 | CARD ---
MR#: [id number] Date of Study: 06/20/2019 Ordering Physician: CECELIA PRESLEY, Referring Physician: Shimon BURROWS: Yecenia Sanchez APPROVED REPORT EXAM: Two-dimensional and M-mode echocardiogram with Doppler and color Doppler. Other Information Quality : AverageHR: 61bpm INDICATION Chest Pain 2D DIMENSIONS RVDd2.5 (2.9-3.5cm)Left Atrium(2D)3.6 (1.6-4.0cm) IVSd1.3 (0.7-1.1cm)Aortic Root(2D)3.2 (2.0-3.7cm) LVDd5.3 (3.9-5.9cm)LVOT Diameter2.0 (1.8-2.4cm) PWd1.0 (0.7-1.1cm)LVDs3.3 (2.5-4.0cm) FS (%) 37.1 %SV89.7 ml LVEF(%)66.6 (>50%) Aortic Valve AoV Peak Bennie.139.3cm/sAoV VTI18.8cm AO Peak GR.7.8mmHgLVOT Peak Bennie.106.8cm/s LVOT VTI 20.22cmAO Mean GR.4mmHg ELYSSA (VMAX)1.70vl3SEY (VTI)3.39cm2 Mitral Valve MV E Nrxssttc66.6cm/sMV E Peak Gr.0mmHg MV DECEL [id number] A Vioztqux32.3cm/s MV BFU27soL/A Ratio0.9 MVA (PHT)2.83cm2 TDI E/Lateral E'11.9E/Medial E'9.5 Pulmonary Valve PV Peak Vlbaetwd577.2cm/sPV Peak Grad.6mmHg Tricuspid Valve TR P. Bblhtcvc627yn/sRAP [id number] TR Peak Gr.10ewAmTTTY93laKy Pulmonary Vein S1 Bknuqksk86.7cm/sD2 Bpiwhphu51.8cm/s PVa [id number] LEFT VENTRICLE The left ventricle is normal size. There is mild to moderate concentric left ventricular hypertrophy. The left ventricular systolic function is normal. The Ejection Fraction is 55-60%. There is normal L V segmental wall motion. Transmitral Doppler flow pattern is Grade I-abnormal relaxation pattern. RIGHT VENTRICLE The right ventricle is normal size. There is normal right ventricular wall thickness. The right ventr icular systolic function is normal. ATRIA The left atrium size is normal. The right atrium size is normal. The interatrial septum is intact wit h no evidence for an atrial septal defect or patent foramen ovale as noted on 2-D or Doppler imaging. AORTIC VALVE The aortic valve is normal in structure and function. Doppler and Color Flow revealed no significant aortic regurgitation. There is no significant aortic valvular stenosis. MITRAL VALVE The mitral valve is normal in structure and function. There is no evidence of mitral valve prolapse. There is no mitral valve stenosis. Doppler and Color-flow revealed trace mitral regurgitation. TRICUSPID VALVE The tricuspid valve is normal in structure and function. Doppler and Color Flow revealed trace tricus pid regurgitation with an estimated PAP of 25 mmHg. There is no tricuspid valve prolapse or vegetatio n. There is no tricuspid valve stenosis. PULMONIC VALVE The pulmonary valve is normal in structure and function. Doppler and Color Flow revealed trace pulmon ic valvular regurgitation. GREAT VESSELS The aortic root is normal in size. The IVC is normal in size and collapses >50% with inspiration. PERICARDIAL EFFUSION There is no evidence of significant pericardial effusion. Critical Notification Critical Value: No <Conclusion> The left ventricular systolic function is normal. The Ejection Fraction is 55-60%. There is normal LV segmental wall motion. Transmitral Doppler flow pattern is Grade I-abnormal relaxation pattern. Trace mitral regurgitation. Trace tricuspid regurgitation with an estimated PAP of 25 mmHg. There is no evidence of significant pericardial effusion. Signed by : David Allan, Electronically Approved : 06/20/2019 17:01:06
[2019-06-20] MEDS ORDERED: LIDO:MAALOX 1:1 20 ML SINGLE DOSE. SWSW ONE (17:15)
--- NOTE | 2019-06-20 17:20 | PDOC3 ---
Discharge Summary Visit Information Date of Admission: Jun 19, 2019 Date of Discharge: Jun 20, 2019 Admitting Diagnosis: Chest pain Final Diagnosis Problems Medical Problems: (1) Chest pain Status: Acute Brief Hospital Course Allergies Allergies Coded Allergies Type Severity Reaction Last Updated Verified Penicillins Allergy Intermediate 11/14/17 Yes codeine Allergy Intermediate 08/01/18 Yes Vital Signs Vital Signs Date Time Temp Pulse Resp B/P (MAP) Pulse Ox O2 Delivery O2 Flow Rate FiO2 06/20/19 16:48 Room Air 06/20/19 14:56 97.5 63 20 116/56 (76) 97 97.5 Lab Results Laboratory Tests Test 06/19/19 20:35 06/19/19 21:15 06/19/19 23:23 06/20/19 01:05 White Blood Count 10.0 x10^3/uL (4.0-11.0) Red Blood Count 3.78 x10^6/uL (4.30-5.70) Hemoglobin 12.3 g/dL (13.0-17.5) Hematocrit 36.2 % (39.0-53.0) Mean Corpuscular Volume 96 fL (79-100) Mean Corpuscular Hemoglobin 33 pg (25-35) Mean Corpuscular Hemoglobin Concent 34 g/dL (31-37) Red Cell Distribution Width 14.2 % (11.5-14.5) Platelet Count 191 x10^3/uL (140-400) Neutrophils (%) (Auto) 64 % (31-73) Lymphocytes (%) (Auto) 26 % (24-48) Monocytes (%) (Auto) 7 % (0-9) Eosinophils (%) (Auto) 2 % (0-3) Basophils (%) (Auto) 1 % (0-3) Neutrophils # (Auto) 6.5 x10^3/uL (1.8-7.7) Lymphocytes # (Auto) 2.6 x10^3/uL (1.0-4.8) Monocytes # (Auto) 0.7 x10^3/uL (0.0-1.1) Eosinophils # (Auto) 0.2 x10^3/uL (0.0-0.7) Basophils # (Auto) 0.1 x10^3/uL (0.0-0.2) Segmented Neutrophils % 71 % (35-66) Lymphocytes % 26 % (24-48) Monocytes % 2 % (0-10) Eosinophils % 1 % (0-5) Platelet Estimate Adequate (ADEQUATE) Prothrombin Time 13.4 SEC (11.7-14.0) Prothromb Time International Ratio 1.1 (0.8-1.1) D-Dimer (Katlin) 0.41 ug/mlFEU (0.00-0.50) Sodium Level 143 mmol/L (136-145) Potassium Level 4.5 mmol/L (3.5-5.1) Chloride Level 106 mmol/L (98-107) Carbon Dioxide Level 26 mmol/L (21-32) Anion Gap 11 (6-14) Blood Urea Nitrogen 22 mg/dL (8-26) Creatinine 1.3 mg/dL (0.7-1.3) Estimated GFR (Cockcroft-Gault) 56.3 BUN/Creatinine Ratio 17 (6-20) Glucose Level 255 mg/dL (70-99) Calcium Level 8.5 mg/dL (8.5-10.1) Total Bilirubin 0.3 mg/dL (0.2-1.0) Aspartate Amino Transf (AST/SGOT) 19 U/L (15-37) Alanine Aminotransferase (ALT/SGPT) 27 U/L (16-63) Alkaline Phosphatase 69 U/L (46-116) Troponin I Quantitative < 0.017 ng/mL (0.000-0.055) < 0.017 ng/mL (0.000-0.055) JK-Smf-N-Type Natriuretic Peptide 193 pg/mL (0-124) Total Protein 7.4 g/dL (6.4-8.2) Albumin 3.3 g/dL (3.4-5.0) Albumin/Globulin Ratio 0.8 (1.0-1.7) Urine Opiates Screen Neg (NEG) Urine Methadone Screen Neg (NEG) Urine Barbiturates Neg (NEG) Urine Phencyclidine Screen Neg (NEG) Urine Amphetamine/Methamphetamine Neg (NEG) Urine Benzodiazepines Screen Neg (NEG) Urine Cocaine Screen Neg (NEG) Urine Cannabinoids Screen Neg (NEG) Urine Ethyl Alcohol Neg (NEG) Glucose (Fingerstick) 155 mg/dL (70-99) Test 06/20/19 03:35 06/20/19 07:10 06/20/19 11:35 06/20/19 16:50 Troponin I Quantitative < 0.017 ng/mL (0.000-0.055) Triglycerides Level 151 mg/dL (0-150) Cholesterol Level 160 mg/dL (0-200) LDL Cholesterol, Calculated 99 mg/dL (0-100) VLDL Cholesterol, Calculated 30 mg/dL (0-40) Non-HDL Cholesterol Calculated 129 mg/dL (0-129) HDL Cholesterol 31 mg/dL (40-60) Cholesterol/HDL Ratio 5.2 Glucose (Fingerstick) 107 mg/dL (70-99) 176 mg/dL (70-99) 101 mg/dL (70-99) Laboratory Tests Test 06/19/19 20:35 06/19/19 21:15 06/19/19 23:23 06/20/19 01:05 White Blood Count 10.0 x10^3/uL (4.0-11.0) Red Blood Count 3.78 x10^6/uL (4.30-5.70) Hemoglobin 12.3 g/dL (13.0-17.5) Hematocrit 36.2 % (39.0-53.0) Mean Corpuscular Volume 96 fL (79-100) Mean Corpuscular Hemoglobin 33 pg (25-35) Mean Corpuscular Hemoglobin Concent 34 g/dL (31-37) Red Cell Distribution Width 14.2 % (11.5-14.5) Platelet Count 191 x10^3/uL (140-400) Neutrophils (%) (Auto) 64 % (31-73) Lymphocytes (%) (Auto) 26 % (24-48) Monocytes (%) (Auto) 7 % (0-9) Eosinophils (%) (Auto) 2 % (0-3) Basophils (%) (Auto) 1 % (0-3) Neutrophils # (Auto) 6.5 x10^3/uL (1.8-7.7) Lymphocytes # (Auto) 2.6 x10^3/uL (1.0-4.8) Monocytes # (Auto) 0.7 x10^3/uL (0.0-1.1) Eosinophils # (Auto) 0.2 x10^3/uL (0.0-0.7) Basophils # (Auto) 0.1 x10^3/uL (0.0-0.2) Segmented Neutrophils % 71 % (35-66) Lymphocytes % 26 % (24-48) Monocytes % 2 % (0-10) Eosinophils % 1 % (0-5) Platelet Estimate Adequate (ADEQUATE) Prothrombin Time 13.4 SEC (11.7-14.0) Prothromb Time International Ratio 1.1 (0.8-1.1) D-Dimer (Katlin) 0.41 ug/mlFEU (0.00-0.50) Sodium Level 143 mmol/L (136-145) Potassium Level 4.5 mmol/L (3.5-5.1) Chloride Level 106 mmol/L (98-107) Carbon Dioxide Level 26 mmol/L (21-32) Anion Gap 11 (6-14) Blood Urea Nitrogen 22 mg/dL (8-26) Creatinine 1.3 mg/dL (0.7-1.3) Estimated GFR (Cockcroft-Gault) 56.3 BUN/Creatinine Ratio 17 (6-20) Glucose Level 255 mg/dL (70-99) Calcium Level 8.5 mg/dL (8.5-10.1) Total Bilirubin 0.3 mg/dL (0.2-1.0) Aspartate Amino Transf (AST/SGOT) 19 U/L (15-37) Alanine Aminotransferase (ALT/SGPT) 27 U/L (16-63) Alkaline Phosphatase 69 U/L (46-116) Troponin I Quantitative < 0.017 ng/mL (0.000-0.055) < 0.017 ng/mL (0.000-0.055) AD-Wfn-E-Type Natriuretic Peptide 193 pg/mL (0-124) Total Protein 7.4 g/dL (6.4-8.2) Albumin 3.3 g/dL (3.4-5.0) Albumin/Globulin Ratio 0.8 (1.0-1.7) Urine Opiates Screen Neg (NEG) Urine Methadone Screen Neg (NEG) Urine Barbiturates Neg (NEG) Urine Phencyclidine Screen Neg (NEG) Urine Amphetamine/Methamphetamine Neg (NEG) Urine Benzodiazepines Screen Neg (NEG) Urine Cocaine Screen Neg (NEG) Urine Cannabinoids Screen Neg (NEG) Urine Ethyl Alcohol Neg (NEG) Glucose (Fingerstick) 155 mg/dL (70-99) Test 06/20/19 03:35 06/20/19 07:10 06/20/19 11:35 06/20/19 16:50 Troponin I Quantitative < 0.017 ng/mL (0.000-0.055) Triglycerides Level 151 mg/dL (0-150) Cholesterol Level 160 mg/dL (0-200) LDL Cholesterol, Calculated 99 mg/dL (0-100) VLDL Cholesterol, Calculated 30 mg/dL (0-40) Non-HDL Cholesterol Calculated 129 mg/dL (0-129) HDL Cholesterol 31 mg/dL (40-60) Cholesterol/HDL Ratio 5.2 Glucose (Fingerstick) 107 mg/dL (70-99) 176 mg/dL (70-99) 101 mg/dL (70-99) Brief Hospital Course Mr Yun is a 59 year old m w/ PMHx Smoker, CAD, Cancer, CVA, Depression, Diabetes-Type II, GERD, Hypertension, TIA, colon cancer who p/w chest pain since Thursday (3 days ago) of varying quality, frequently sharp with constant baseline pressure. He rates it 5/10, radiating to his left arm and jawline. Worsened with exertion. He notes he was going for MRI on 06/17 at [facility] for his chronic lower back pain and was locked out of his house, so laid in his truck and got overheated. Waited for police who found his keys and allowed him to get into his home and his chest pain improved, though he had a pressure Thursday evening 06/18 that returned and was present on awakening on 06/19. He noted sharp chest pain at [facility] on 06/19 that radiated into his jaw and left arm and called his PCP, was instructed to go to the ED for further evaluation. This morning on evaluation his sharp pain has improved, but still feels left sided chest pressure. He has NTG at home, but did not take any of it. Prior cad mild stenosis five years ago. mpi low risk last year in July 2018. EKG WNL, Trop negative, CXR with right atelectasis vs infiltrate, tox screen negative. BNP 193. Cr 1.3 He did c/o headache after NTG administration, did not wish for long acting nitrates. He was unsteady on his feet, evaluated by PT, recommended a 4 wheeled walker due to gait instability and early diabetic peripheral neuropathy causing gait apraxia. Seen by cardiology, recommended echo. Echo - The left ventricular systolic function is normal. The Ejection Fraction is 55-60%. There is normal LV segmental wall motion. Transmitral Doppler flow pattern is Grade I-abnormal relaxation pattern. Trace mitral regurgitation. Trace tricuspid regurgitation with an estimated PAP of 25 mmHg. There is no evidence of significant pericardial effusion. With no acute findings on echo, recommendation for outpatient stress testing after cardiology office visit were also recommended. CXR - Right lower lobe atelectasis is new in the interval. Correlate with clinical history in determining further evaluation with CT of the chest with contrast if able for further assessment. 08/03/18 - Nuclear medicine cardiac stress testing: (did not reach target heat rate) 1. No evidence of stress induced EKG changes 2. Normal perfusion at stress. Rest images not performed. 3. Normal EF at > 65% 4. Low risk study 5. Motion artifact. A/P: Chest pain - could be cardiac, angina. Possibly a good candidate for long acting nitrates. He did have negative MPI this past year. Cardiology consulted. Echo to r/o wall motion abnormalities Smoker - counseled on cessation h/o CAD - cont home meds h/o strokes - cont ASA, statin depression - con celexa, wellbutrin diabetes - A1c 7.4 approximately 2 years ago. Sliding scale, basal bolus plus while in house hypertension - cont meds hyperlipidemia - cont statin h/o colon cancer - in remission Aortic calcifications - on prior CT chest/abd/pelvis from 2018 Gait instability - combination of diabetic neuropathy and OA Greater than 30 minutes spent on d/c Discharge Information Condition at Discharge: Improved Follow Up: Weeks (1) Disposition/Orders: D/C to Home Scheduled Atorvastatin Calcium (Atorvastatin Calcium) 40 Mg Tablet, 1 TAB PO HS, #30 (Reported) Entered as Reported by: CAMERON STRICKLAND RN on 01/31/15 1113 Last Action: Continued on 06/19/192327 by MACEY GALICIA Bupropion Hcl (Bupropion Xl) 150 Mg Tab.er.24h, 1 TAB PO DAILYWBKFT, #30 Ref 2 (Reported) Entered as Reported by: BRIANA DEL RIO on 09/29/17 192 Last Action: Continued on 06/19/192327 by MACEY GALICIA Citalopram Hydrobromide (Citalopram Hbr) 20 Mg Tablet, 1 TAB PO DAILY, #30 Ref 5 (Reported) Entered as Reported by: BRIANA DEL RIO on 09/29/171927 Last Action: Continued on 06/19/192327 by MACEY GALICIA Clopidogrel Bisulfate (Clopidogrel) 75 Mg Tablet, 75 MG PO DAILY for TO PREVENT BLOOD CLOTS, #30 Ref 0 (Reported) Entered as Reported by: BRIANA DEL RIO on 09/29/171927 Last Action: Continued on 06/19/192327 by MACEY GALICIA Donepezil Hcl (Donepezil Hcl) 5 Mg Tablet, 5 MG PO HS, (Reported) Entered as Reported by: MARTÍN KHAN on 08/02/18 1205 Last Action: Converted on 06/19/192327 by MACEY GALICIA Ergocalciferol (Vitamin D2) (Vitamin D2) 50,000 Unit Capsule, 50,000 UNIT PO WEEKLY, (Reported) Entered as Reported by: MATEUSZ WASSERMAN on 11/13/171708 Last Action: Continued on 06/19/192327 by MACEY GALICIA Furosemide (Furosemide) 20 Mg Tablet, 20 MG PO DAILY, (Reported) Entered as Reported by: BRIANA DEL RIO on 09/29/171928 Last Action: Continued on 06/19/192327 by MACEY GALICIA Insulin Aspart (Novolog Flexpen) 100 Unit/1 Ml Insuln.pen, 16 UNIT SQ TIDAC, (Reported) Entered as Reported by: MATEUSZ WASSERMAN on 11/13/171708 Last Action: Converted on 06/19/192327 by MACEY GALICIA Insulin Glargine,Hum.rec.anlog (Lantus Solostar) 100 Unit/1 Ml Insuln.pen, 30 UNIT SQ BID, #15 Ref 3 (Reported) Entered as Reported by: YANETH ROD RN on 08/01/182147 Last Action: Continued on 06/19/192327 by MACEY GALICIA Liraglutide (Victoza 3-Marcos) 0.6 Mg/0.1 Ml Pen.injctr, 1.2 MG SQ DAILY, #9 Ref 3 (Reported) Entered as Reported by: MATEUSZ WASSERMAN on 11/13/171708 Last Action: Reviewed on 06/19/192224 by MACEY GALICIA Olmesartan Medoxomil (Benicar) 20 Mg Tablet, 1 TAB PO BID, #30 Ref 5 (Reported) Entered as Reported by: MARTÍN KHAN on 08/02/18 1205 Last Action: Converted on 06/19/192327 by MACEY GALICIA Omeprazole (Omeprazole) 10 Mg Capsule.dr, 10 MG PO DAILY, (Reported) Entered as Reported by: BRIANA DEL RIO on 09/29/171928 Last Action: Converted on 06/19/192327 by MACEY GALICIA Ropinirole Hcl (Requip) 0.5 Mg Tablet, 0.5 MG PO HS for rls, (Reported) Entered as Reported by: BRIANA DEL RIO on 09/29/171930 Last Action: Converted on 06/19/192327 by MACEY GALICIA Tamsulosin Hcl (Tamsulosin Hcl) 0.4 Mg Cap.er.24h, 1 TAB PO HS, #30 (Reported) Entered as Reported by: CAMERON STRICKLAND RN on 01/31/15 1113 Last Action: Continued on 06/19/192327 by MACEY GALICIA Trazodone Hcl (Trazodone Hcl) 50 Mg Tablet, 50 MG PO HS, (Reported) Entered as Reported by: MATEUSZ WASSERMAN on 11/13/171708 Last Action: Converted on 06/19/192327 by MACEY GALICIA Scheduled PRN Benzonatate (Benzonatate) 100 Mg Capsule, 100 MG PO TID PRN for COUGH, (Reported) Entered as Reported by: MATEUSZ WASSERMAN on 11/13/171708 Last Action: Converted on 06/19/192327 by MACEY GALICIA Nitroglycerin (NITROGLYCERIN SubLingual) 0.4 Mg Tab.subl, 0.4 MG SL PRN Q5MIN PRN for CHEST PAIN, (Reported) Entered as Reported by: MATEUSZ WASSERMAN on 11/13/171708 Last Action: Continued on 06/19/192327 by MACEY GALICIA Discontinued Medications Hydrocodone/Apap 5-325 ([place] 5-325 Tablet) 1 Each Tablet, 1 TAB PO PRN Q6HRS PRN for PAIN for 2 Days, #6 Ref 0 Prescribed by: KADIE BAEZ APRN on 04/26/192112 Last Action: Continued on 06/19/192327 by MACEY GALICIA Tramadol Hcl (Tramadol Hcl) 50 Mg Tablet, 50 MG PO Q4H PRN for PAIN, (Reported) Entered as Reported by: MATEUSZ WASSERMAN on 11/13/171708 Last Action: Discontinued on 06/19/192224 by MACEY GALICIA [blood pressure pill] , PO BID, (Reported) Entered as Reported by: YANETH ROD RN on 08/01/182149 Last Action: Discontinued on 06/19/192155 by MACEY GALICIA [memory pill] , DAILY, (Reported) Entered as Reported by: YANETH ROD RN on 08/01/182149 Last Action: Discontinued on 06/19/192155 by JAIRO LAFLEUR MD Jun 20, 2019 17:20
[2019-06-20 19:30] VITALS: BP 136/67
[2019-06-20 22:40] VITALS: BP 142/64
[2019-06-21 03:20] VITALS: BP 137/64
[2019-06-21 07:00] VITALS: BP 141/73
[2019-06-21] MEDS ORDERED: ASPIRIN ENTERIC COATED 81 MG TABLET.DR. PO SCH (08:00)
[2019-06-21] MEDS: INSULIN GLARGINE 300 UNITS/3 ML INSULN.PEN. SQ SCH (09:00)
[2019-06-21] MEDS: CITALOPRAM 20 MG TABLET. PO SCH (09:31)
[2019-06-21] MEDS: FUROSEMIDE 20 MG TABLET PO SCH (09:31)
[2019-06-21] MEDS: PANTOPRAZOLE 40 MG TABLET.DR. PO SCH (09:31)
[2019-06-21] MEDS: buPROPion XL 150 MG TAB.ER.24H. PO SCH (09:31)
[2019-06-21] MEDS: CLOPIDOGREL BISULFATE 75 MG TABLET PO SCH (09:31)
[2019-06-21 09:32] VITALS: BP 141/73
[2019-06-21] MEDS: LOSARTAN POTASSIUM 50 MG TABLET. PO SCH (09:32)
[2019-06-21] MEDS: INSULIN LISPRO 300 UNITS/3 ML INSULN.PEN. SQ SCH (09:37)
--- NOTE | 2019-06-21 09:40 | PDOC ---
[employer] PROGRESS NOTE Chief Complaint Chief Complaint Chest Pain CAD CVA Colon cancer HTN TIIDM History of Present Illness History of Present Illness 06/21/19 Pt seen and examined Pt appears well is alert and interacting DW pt echocardiogram results DW RN Vitals/I&O Vitals/I&O: Vital Signs Date Time Temp Pulse Resp B/P (MAP) Pulse Ox O2 Delivery O2 Flow Rate FiO2 06/21/19 07:00 98.4 72 20 141/73 (95) 96 Room Air 98.4 I & O 06/20/19 06/20/19 06/21/19 14:59 22:59 06:59 Intake Total 500 ml 480 ml Output Total 200 ml 1000 ml 400 ml Balance -200 ml -500 ml 80 ml Physical Exam General: Alert, Oriented X3, Cooperative, No acute distress Heart: Regular rate, Normal S1, Normal S2 Lungs: Clear Abdomen: Soft Extremities: No edema, Normal pulses Skin: No breakdown, No significant lesion Labs Labs: Laboratory Tests Test 06/20/19 11:35 06/20/19 16:50 06/20/19 21:01 Glucose (Fingerstick) 176 mg/dL (70-99) 101 mg/dL (70-99) 135 mg/dL (70-99) Review of Systems Review of Systems: Denies CP Denies N/V/D Assessment and Plan Assessmemt and Plan Problems Medical Problems: (1) Accelerated hypertension Status: Chronic (2) CAD (coronary artery disease) Status: Chronic (3) Chest pain Status: Acute (4) HLD (hyperlipidemia) Status: Chronic (5) Type 2 diabetes mellitus Status: Chronic Assessment Chest Pain CAD CVA Colon cancer HTN TIIDM Plan At baseline plan to discharge if okay with cardiology Comment Review of Relevant I have reviewed the following items ofelia (where applicable) has been applied. Medications: Current Medications Medications (Trade) Dose Ordered Sig/Viviana Route PRN Reason Start Time Stop Time Status Last Admin Dose Admin Multi-Ingredient Mouthwash/Gargle (Gi Cocktail) 20 ml 1X ONCE SWSW 06/20/19 17:15 06/20/19 17:16 DC 06/20/19 18:25 GENA GONZALEZ III DO Jun 21, 2019 09:40
--- NOTE | 2019-06-21 12:00 | NUR ---
SS following up with discharge planning. SS contacted Eugenio SOLANO at [facility], , and faxed clinical updates to Eugenio at [phone]. Discharge order on the chart for home with self care. Pt provided with a walker for home.
--- NOTE | 2019-06-21 13:42 | DS ---
DATE OF DISCHARGE: 06/21/2019 ADMISSION DIAGNOSIS: Chest pain. DISCHARGE DIAGNOSES: 1. Atypical chest pain. 2. Known coronary artery disease. 3. Gastroesophageal reflux disease. 4. Hyperlipidemia. 5. Diabetes. 6. Stroke. CONSULTS: Cardiology. PROCEDURES: None. HOSPITAL COURSE: The patient is a pleasant middle-aged male, who presented with chest pain. He has known coronary artery disease. We did serial enzymes, serial EKGs, did cardiac monitoring. Consult Cardiology who has felt that this pain is probably atypical and probably GI related, perhaps GERD. Overall, I saw him and examined this morning, he is doing great. We plan to discharge with close outpatient followup. DISPOSITION: Home. ACTIVITY: As tolerated. DIET: Low sodium. MEDICATIONS: Please see the MRAD. TOTAL TIME: 34 minutes. GENA GONZALEZ DO DR: KELSEA/joi JOB#: [id number] / [id number]
[2019-06-26] MEDS ORDERED: ERGOCALCIFEROL (VITAMIN D2) 50,000 UNIT CAPSULE. PO SCH (09:00)
== END 2019-06-21 11:30 | disposition home health service (06) ==
LOC: ER 19:57 → 2 SOUTH 21:30
PROVIDERS: ADMIT Internal Medicine; ATTEND Internal Medicine
DX: R07.89 Other chest pain (principal); I25.10 Atherosclerotic heart disease of native coronary artery without angina pectoris; Z86.73 Personal history of transient ischemic attack (TIA), and cerebral infarction without residual deficits; F32.9 Major depressive disorder, single episode, unspecified; K21.9 Gastro-esophageal reflux disease without esophagitis; Z82.49 Family history of ischemic heart disease and other diseases of the circulatory system; Z90.49 Acquired absence of other specified parts of digestive tract; Z85.038 Personal history of other malignant neoplasm of large intestine; J44.9 Chronic obstructive pulmonary disease, unspecified; F17.210 Nicotine dependence, cigarettes, uncomplicated; E78.5 Hyperlipidemia, unspecified; I63.9 Cerebral infarction, unspecified; G89.29 Other chronic pain; R26.9 Unspecified abnormalities of gait and mobility; E11.40 Type 2 diabetes mellitus with diabetic neuropathy, unspecified; E11.22 Type 2 diabetes mellitus with diabetic chronic kidney disease; I12.9 Hypertensive chronic kidney disease with stage 1 through stage 4 chronic kidney disease, or unspecified chronic kidney disease; N18.9 Chronic kidney disease, unspecified; F03.90 Unspecified dementia, unspecified severity, without behavioral disturbance, psychotic disturbance, mood disturbance, and anxiety; J98.11 Atelectasis; M19.90 Unspecified osteoarthritis, unspecified site
CPT/HCPCS: 36415; 71045; 80053; 80061; 80307; 82962; 83880; 84484; 85007; 85025; 85379; 85610; 93005; 93306; 96372; 97162; 99284; G0378; J1815; G0379

== ENCOUNTER 2019-09-18 17:44 | Inpatient (IN) | payer OTHER ==
[~2019-09-18] VITALS: Ht 170.2 cm; Wt 119.5 kg
[~2019-09-18 17:44] MED LIST changes: +OMEP40CA45 PO; -OMEP40CA5 PO
[2019-09-18] MEDS ORDERED: NITROGLYCERIN SUBLINGUAL 0.4 MG BOTTLE OF 25. SL PRN ×3 (18:30→21:45)
[2019-09-18] MEDS ORDERED: ASPIRIN 325 MG TABLET PO ONE (18:30)
[2019-09-18] MEDS ORDERED: fentaNYL PF VIAL 100 MCG/2 ML VIAL IVP ONE (18:30)
--- NOTE | 2019-09-18 18:39 | PHYS DOC ---
Past Medical History Past Medical History: CAD, Cancer, CVA, Depression, Diabetes-Type II, GERD, Hypertension, TIA Additional Past Medical Histor: colon cancer (ELVIA QUAN APRN) Past Surgical History: Cancer Surgery, Cholecystectomy, Other Additional Past Surgical Histo: eyes,ears,nose,hand ,DEFIB LEFT CHEST,COLON RESECTION (ELVIA QUAN APRN) Alcohol Use: None Drug Use: None (ELVIA QUAN APRN) Attending Signature I have participated in the care of this patient and I have reviewed and agree with all pertinent clinical information above including history, exam, and recommendations. (LEROY MUHAMMAD MD) Adult General Chief Complaint Chief Complaint: MULTIPLE COMPLAINTS HPI HPI Patient is a 59 year old male with history of diabetes type 2, hypertension, high cholesterol, 5 TIAs per his own statement, one big stroke that took away his entire right side though he has recovered the affected areas, (per his own statement), who presents to the ED today with multiple complaints. Patient states he has had a 6 out of 10 headache for the last 3 weeks, dizziness, he describes the headache as throbbing he states this headache is on the left side though he changed his mind and stated the headache is not on the left side is actually on the right side. He states he was seen in the ED 3 weeks ago and was told he had another TIA but when he followed up with his own doctor he told him he doesn't need to see a neurologist. He keeps talking referring to himself as "we". He is also complaining of a 6 out of 10 left-sided chest pain for 3 weeks, patient describes the pain as sharp and intermittent worse when he is coughing. He states he had a heart attack 5 years ago and has stents. He states he is supposed to be on Plavix which he stopped a week ago because he is supposed to have a spinal tap at [facility] sometime this week.Patient appears lonely is very conversational. (ELVIA QUAN APRN) Review of Systems Review of Systems Constitutional: Denies fever or chills [] Eyes: Denies change in visual acuity, redness, or eye pain [] HENT: Denies nasal congestion or sore throat [] Respiratory: Reports cough, denies shortness of breath [] Cardiovascular: Reports chest pain GI: Denies abdominal pain, nausea, vomiting, bloody stools or diarrhea [] : Denies dysuria or hematuria [] Musculoskeletal: Denies back pain or joint pain [] Integument: Denies rash or skin lesions [] Neurologic: Reports headache, denies focal weakness or sensory changes [] All other systems were reviewed and found to be within normal limits, except as documented in this note. (ELVIA QUAN APRN) Current Medications Current Medications Current Medications Medications (Trade) Dose Ordered Sig/Viviana Start Time Stop Time Status Last Admin Dose Admin Aspirin (Edgar Aspirin) 325 mg 1X ONCE 09/18/19 18:30 09/18/19 18:31 DC 09/18/19 19:22 325 MG Fentanyl Citrate (Fentanyl 2ml Vial) 50 mcg 1X ONCE 09/18/19 18:30 09/18/19 18:31 DC 09/18/19 19:22 50 MCG Nitroglycerin (Nitrostat) 0.4 mg PRN Q5MIN PRN 09/18/19 18:30 09/19/19 18:29 (LEROY MUHAMMAD MD) Allergies Allergies Allergies Coded Allergies Type Severity Reaction Last Updated Verified Penicillins Allergy Intermediate 11/14/17 Yes codeine Allergy Intermediate 08/01/18 Yes (LEROY MUHAMMAD MD) Physical Exam Physical Exam Constitutional: Well developed, well nourished, no acute distress, non-toxic appearance. [] HENT: Normocephalic, atraumatic, bilateral external ears normal, oropharynx moist, no oral exudates, nose normal. [] Eyes: PERRLA, EOMI, conjunctiva normal, no discharge. [] Neck: Normal range of motion, no tenderness, supple, no stridor. [] Cardiovascular:Heart rate regular rhythm, no murmur [] Lungs & Thorax: Bilateral breath sounds clear to auscultation [] Abdomen: Bowel sounds normal, soft, no tenderness, no masses, no pulsatile masses. [] Skin: Warm, dry, no erythema, no rash. [] Back: No tenderness, no CVA tenderness. [] Extremities: No tenderness, no cyanosis, no clubbing, ROM intact, no edema. [] Neurologic: Alert and oriented X 3, normal motor function, normal sensory function, no focal deficits noted. Cranial nerves II through XII intact Psychologic: Flat affect, patient is very conversational (ELVIA QUAN APRN) Current Patient Data Vital Signs Vital Signs Date Time Temp Pulse Resp B/P (MAP) Pulse Ox O2 Delivery O2 Flow Rate FiO2 09/18/19 19:22 Room Air 09/18/19 17:59 98.1 77 13 139/66 (90) 97 98.1 (LEROY MUHAMMAD MD) Lab Values Laboratory Tests Test 09/18/19 19:00 White Blood Count 11.2 x10^3/uL (4.0-11.0) H Red Blood Count 4.31 x10^6/uL (4.30-5.70) Hemoglobin 13.6 g/dL (13.0-17.5) Hematocrit 40.4 % (39.0-53.0) Mean Corpuscular Volume 94 fL (79-100) Mean Corpuscular Hemoglobin 32 pg (25-35) Mean Corpuscular Hemoglobin Concent 34 g/dL (31-37) Red Cell Distribution Width 13.5 % (11.5-14.5) Platelet Count 228 x10^3/uL (140-400) Neutrophils (%) (Auto) 64 % (31-73) Lymphocytes (%) (Auto) 28 % (24-48) Monocytes (%) (Auto) 6 % (0-9) Eosinophils (%) (Auto) 2 % (0-3) Basophils (%) (Auto) 1 % (0-3) Neutrophils # (Auto) 7.1 x10^3/uL (1.8-7.7) Lymphocytes # (Auto) 3.1 x10^3/uL (1.0-4.8) Monocytes # (Auto) 0.7 x10^3/uL (0.0-1.1) Eosinophils # (Auto) 0.2 x10^3/uL (0.0-0.7) Basophils # (Auto) 0.1 x10^3/uL (0.0-0.2) Prothrombin Time 13.3 SEC (11.7-14.0) Prothrombin Time INR 1.0 (0.8-1.1) Activated Partial Thromboplast Time 30 SEC (24-38) Sodium Level 144 mmol/L (136-145) Potassium Level 4.1 mmol/L (3.5-5.1) Chloride Level 105 mmol/L (98-107) Carbon Dioxide Level 31 mmol/L (21-32) Anion Gap 8 (6-14) Blood Urea Nitrogen 16 mg/dL (8-26) Creatinine 1.2 mg/dL (0.7-1.3) Estimated GFR (Cockcroft-Gault) 61.8 BUN/Creatinine Ratio 13 (6-20) Glucose Level 105 mg/dL (70-99) H Calcium Level 9.1 mg/dL (8.5-10.1) Magnesium Level 1.7 mg/dL (1.8-2.4) L Total Bilirubin 0.3 mg/dL (0.2-1.0) Aspartate Amino Transferase (AST) 24 U/L (15-37) Alanine Aminotransferase (ALT) 25 U/L (16-63) Alkaline Phosphatase 62 U/L (46-116) Creatine Kinase 68 U/L (39-308) Creatine Kinase MB (Mass) < 0.5 ng/mL (0.0-3.6) Creatine Kinase MB Relative Index % (0-4) Troponin I Quantitative < 0.017 ng/mL (0.000-0.055) LN-Ycd-G-Type Natriuretic Peptide 80 pg/mL (0-124) Total Protein 8.4 g/dL (6.4-8.2) H Albumin 3.7 g/dL (3.4-5.0) Albumin/Globulin Ratio 0.8 (1.0-1.7) L Lipase 376 U/L (73-393) Thyroid Stimulating Hormone (TSH) 1.764 uIU/mL (0.358-3.74) Laboratory Tests 09/18/19 19:00 Laboratory Tests 09/18/19 19:00 (LEROY MUHAMMAD MD) Lab Values Laboratory Tests Test 09/18/19 19:00 White Blood Count 11.2 x10^3/uL (4.0-11.0) H Red Blood Count 4.31 x10^6/uL (4.30-5.70) Hemoglobin 13.6 g/dL (13.0-17.5) Hematocrit 40.4 % (39.0-53.0) Mean Corpuscular Volume 94 fL (79-100) Mean Corpuscular Hemoglobin 32 pg (25-35) Mean Corpuscular Hemoglobin Concent 34 g/dL (31-37) Red Cell Distribution Width 13.5 % (11.5-14.5) Platelet Count 228 x10^3/uL (140-400) Neutrophils (%) (Auto) 64 % (31-73) Lymphocytes (%) (Auto) 28 % (24-48) Monocytes (%) (Auto) 6 % (0-9) Eosinophils (%) (Auto) 2 % (0-3) Basophils (%) (Auto) 1 % (0-3) Neutrophils # (Auto) 7.1 x10^3/uL (1.8-7.7) Lymphocytes # (Auto) 3.1 x10^3/uL (1.0-4.8) Monocytes # (Auto) 0.7 x10^3/uL (0.0-1.1) Eosinophils # (Auto) 0.2 x10^3/uL (0.0-0.7) Basophils # (Auto) 0.1 x10^3/uL (0.0-0.2) Prothrombin Time 13.3 SEC (11.7-14.0) Prothrombin Time INR 1.0 (0.8-1.1) Activated Partial Thromboplast Time 30 SEC (24-38) Sodium Level 144 mmol/L (136-145) Potassium Level 4.1 mmol/L (3.5-5.1) Chloride Level 105 mmol/L (98-107) Carbon Dioxide Level 31 mmol/L (21-32) Anion Gap 8 (6-14) Blood Urea Nitrogen 16 mg/dL (8-26) Creatinine 1.2 mg/dL (0.7-1.3) Estimated GFR (Cockcroft-Gault) 61.8 BUN/Creatinine Ratio 13 (6-20) Glucose Level 105 mg/dL (70-99) H Calcium Level 9.1 mg/dL (8.5-10.1) Magnesium Level 1.7 mg/dL (1.8-2.4) L Total Bilirubin 0.3 mg/dL (0.2-1.0) Aspartate Amino Transferase (AST) 24 U/L (15-37) Alanine Aminotransferase (ALT) 25 U/L (16-63) Alkaline Phosphatase 62 U/L (46-116) Creatine Kinase 68 U/L (39-308) Creatine Kinase MB (Mass) < 0.5 ng/mL (0.0-3.6) Creatine Kinase MB Relative Index % (0-4) Troponin I Quantitative < 0.017 ng/mL (0.000-0.055) DQ-Ewp-L-Type Natriuretic Peptide 80 pg/mL (0-124) Total Protein 8.4 g/dL (6.4-8.2) H Albumin 3.7 g/dL (3.4-5.0) Albumin/Globulin Ratio 0.8 (1.0-1.7) L Lipase 376 U/L (73-393) Thyroid Stimulating Hormone (TSH) 1.764 uIU/mL (0.358-3.74) Laboratory Tests 09/18/19 19:00 Laboratory Tests 09/18/19 19:00 (ELVIA QUAN APRN) EKG EKG [address] Muhammad sinus rhythm HR 86 no STEMI[] (ELVIA QUAN APRN) Radiology/Procedures Radiology/Procedures []PROCEDURE: PORTABLE CHEST 1V Exam: Chest one view INDICATION: Chest pain TECHNIQUE: Frontal view of the chest Comparisons: 06/19/2019 FINDINGS: Heart is mildly enlarged. Pulmonary vessels are within normal limits. The lung and pleural spaces are clear. IMPRESSION: Mild cardiomegaly without acute pulmonary process. Electronically signed by: Tho Harris MD (09/18/2019 6:45 PM) [facility] DICTATED and SIGNED BY: THO HARRIS MD DATE: 09/18/19 1845 PROCEDURE: CT HEAD WO CONTRAST CT head without contrast 09/18/2019. Reason for exam: Headache for 3 weeks. Hypertension. Noncontrast images were performed. Exposure: One or more of the following individualized dose reduction techniques were utilized for this examination: 1. Automated exposure control 2. Adjustment of the mA and/or kV according to patient size 3. Use of iterative reconstruction technique. Comparison is made with a prior study of 12/07/2017. FINDINGS: There is no apparent intracranial mass, hemorrhage or abnormal extra-axial fluid collection. No new area of abnormal density is seen in the brain. The ventricles and basilar cisterns are normally positioned. The sinuses and mastoid air cells appear clear. IMPRESSION: No apparent acute intracranial abnormality or change from the prior study. Electronically signed by: Pineda Garcia Jr., MD (09/18/2019 7:02 PM) [facility] DICTATED and SIGNED BY: PINEDA GARCIA Jr, MD DATE: 09/18/191901 (ELVIA QUAN APRN) Course & Med Decision Making Course & Med Decision Making Pertinent Labs and Imaging studies reviewed. (See chart for details) This is a 59-year-old male patient who presents to the ED today with multiple complaints including headache, dizziness, cough, and chest pain for 3 weeks. See history of present illness. Patient appears lonely is very conversational. EKG is negative. CT of the head, chest x-ray interpreted by radiologist are negative for any acute findings. Labs including troponin and negative for any acute findings. See Heartscore had NIHSS templates Patient was admitted in stable condition (ELVIA QUAN APRN) Dragon Disclaimer Dragon Disclaimer This electronic medical record was generated, in whole or in part, using a voice recognition dictation system. (ELVIA QUAN APRN) The HEART Score for CP Pts HEART Score for Chest Pain: HEART Score for Chest Pain Response (Comments) Value History Slighlty/Non-Suspicious 0 ECG Normal 0 Age >45 - < 65 1 Risk Factors >3 Risk Factors or Hx CAD 2 Troponin < Normal Limit 0 Total 3 Risk Factors: Risk Factors: DM, Current or recent (<one month) smoker, HTN, HLP, family history of CAD, obesity. Risk Scores: Score 0 - 3: 2.5% MACE over next 6 weeks - Discharge Home Score 4 - 6: 20.3% MACE over next 6 weeks - Admit for Clinical Observation Score 7 - 10: 72.7% MACE over next 6 weeks - Early Invasive Strategies (ELVIA QUAN APRN) NIHSS Stroke Scale NIH Stroke Scale: NIH Stroke Scale Response (Comments) Value Level of Consciousness: 0 Alert/Responsive 0 LOC Questions: 0 Answers both correctly 0 Best Gaze: 0 Normal 0 Visual: 0 No visual loss 0 Facial Palsy: 0 Normal, symmetrical 0 Motor - Left Arm 0 No drift 0 Motor - Right Arm 0 No drift 0 Motor - Left Leg 0 No drift 0 Motor: Right Leg 0 No drift 0 Limb Ataxia: 0 Absent 0 Sensory: 0 No loss 0 Dysathria: 0 Normal 0 Extinction and Inattention: 0 Normal 0 Total 0 Departure Departure Impression: Primary Impression: Chest pain Additional Impressions: Headache Dizziness Disposition: 09 ADMITTED INPATIENT Condition: STABLE Referrals: KATHRINE CARRANZA MD (PCP) Problem Qualifiers Primary Impression: Chest pain Chest pain type: unspecified Qualified Codes: R07.9 - Chest pain, unspecified Additional Impressions: Headache Headache type: unspecified Headache chronicity pattern: unspecified pattern Intractability: intractable Qualified Codes: R51 - Headache ELVIA QUAN APRN Sep 18, 2019 18:39 LEROY MUHAMMAD MD Sep 19, 2019 03:31
--- NOTE | 2019-09-18 18:48 | RAD ---
Exam: Chest one view INDICATION: Chest pain TECHNIQUE: Frontal view of the chest Comparisons: 06/19/2019 FINDINGS: Heart is mildly enlarged. Pulmonary vessels are within normal limits. The lung and pleural spaces are clear. IMPRESSION: Mild cardiomegaly without acute pulmonary process. Electronically signed by: Tho Coulter MD (09/18/2019 6:45 PM) [facility]
--- NOTE | 2019-09-18 19:05 | RAD ---
CT head without contrast 09/18/2019. Reason for exam: Headache for 3 weeks. Hypertension. Noncontrast images were performed. Exposure: One or more of the following individualized dose reduction techniques were utilized for this examination: 1. Automated exposure control 2. Adjustment of the mA and/or kV according to patient size 3. Use of iterative reconstruction technique. Comparison is made with a prior study of 12/07/2017. FINDINGS: There is no apparent intracranial mass, hemorrhage or abnormal extra-axial fluid collection. No new area of abnormal density is seen in the brain. The ventricles and basilar cisterns are normally positioned. The sinuses and mastoid air cells appear clear. IMPRESSION: No apparent acute intracranial abnormality or change from the prior study. Electronically signed by: Eduardo Garcia Jr., MD (09/18/2019 7:02 PM) [facility]
[2019-09-18 19:15] LABS: BASO # 0.1 x10^3/uL (0.0-0.2); BASO % 1 % (0-3); EOS # 0.2 x10^3/uL (0.0-0.7); EOS % 2 % (0-3); HEMATOCRIT 40.4 % (39.0-53.0); HEMOGLOBIN 13.6 g/dL (13.0-17.5); LYMPH # 3.1 x10^3/uL (1.0-4.8); LYMPH % 28 % (24-48); MEAN CORPUSCULAR HEMOGLOBIN 32 pg (25-35); MEAN CORPUSCULAR HGB CONC 34 g/dL (31-37); MEAN CORPUSCULAR VOLUME 94 fL (79-100); MONO # 0.7 x10^3/uL (0.0-1.1); MONO % 6 % (0-9); NEUT # 7.1 x10^3/uL (1.8-7.7); NEUT % 64 % (31-73); PLATELET COUNT 228 x10^3/uL (140-400); RED BLOOD COUNT 4.31 x10^6/uL (4.30-5.70); RED CELL DISTRIBUTION WIDTH 13.5 % (11.5-14.5); WHITE BLOOD COUNT 11.2 x10^3/uL (4.0-11.0)
[2019-09-18 19:24] LABS: CALCIUM 9.1 mg/dL (8.5-10.1); CREATININE 1.2 mg/dL (0.7-1.3); GFR 61.8; POTASSIUM 4.1 mmol/L (3.5-5.1)
[2019-09-18 19:25] LABS: PROTHROMBIN TIME PATIENT 13.3 SEC (11.7-14.0)
[2019-09-18 19:30] LABS: ALBUMIN 3.7 g/dL (3.4-5.0); ALBUMIN/GLOBULIN RATIO 0.8 (1.0-1.7); MAGNESIUM 1.7 mg/dL (1.8-2.4); TOTAL BILIRUBIN 0.3 mg/dL (0.2-1.0); TOTAL PROTEIN 8.4 g/dL (6.4-8.2)
[2019-09-18 19:40] LABS: CREATINE KINASE 68 U/L (39-308)
[2019-09-18] MEDS ORDERED: ONDANSETRON PF 4 MG/2 ML VIAL. IV PRN (20:00)
[2019-09-18] MEDS ORDERED: ACETAMINOPHEN 325 MG TABLET. PO PRN (20:00)
[2019-09-18] MEDS ORDERED: fentaNYL PF VIAL 100 MCG/2 ML VIAL IV PRN (20:00)
[2019-09-18 21:19] VITALS: BP 154/81
[2019-09-18] MEDS ORDERED: BENZONATATE 100 MG CAPSULE. PO PRN (21:45)
[2019-09-18] MEDS ORDERED: DONEPEZIL HCL 5 MG TABLET. PO SCH (22:00)
[2019-09-18] MEDS ORDERED: traZODone 50 MG TABLET. PO SCH (22:00)
[2019-09-18] MEDS ORDERED: ATORVASTATIN CALCIUM 40 MG TABLET. PO SCH (22:00)
[2019-09-18] MEDS ORDERED: TAMSULOSIN 0.4 MG CAP.ER.24H. PO SCH (22:00)
[2019-09-18] MEDS ORDERED: rOPINIRole 0.25 MG TABLET. PO SCH (22:00)
[2019-09-18] MEDS: LOSARTAN POTASSIUM 50 MG TABLET. PO SCH (22:38)
[2019-09-18] MEDS: INSULIN GLARGINE SYRINGE. SQ SCH (22:45)
[2019-09-18 23:00] VITALS: BP_SYST 101; BP_SYST 92; BP_DIAS 46; BP_DIAS 49
[2019-09-19 03:00] VITALS: BP 133/58
[2019-09-19 07:00] VITALS: BP 125/58
[2019-09-19 07:15] LABS: BASO # 0.1 x10^3/uL (0.0-0.2); BASO % 1 % (0-3); EOS # 0.1 x10^3/uL (0.0-0.7); EOS % 2 % (0-3); HEMATOCRIT 38.1 % (39.0-53.0); HEMOGLOBIN 12.9 g/dL (13.0-17.5); LYMPH # 2.7 x10^3/uL (1.0-4.8); LYMPH % 29 % (24-48); MEAN CORPUSCULAR HEMOGLOBIN 32 pg (25-35); MEAN CORPUSCULAR HGB CONC 34 g/dL (31-37); MEAN CORPUSCULAR VOLUME 94 fL (79-100); MONO # 0.6 x10^3/uL (0.0-1.1); MONO % 6 % (0-9); NEUT # 5.7 x10^3/uL (1.8-7.7); NEUT % 62 % (31-73); PLATELET COUNT 193 x10^3/uL (140-400); RED BLOOD COUNT 4.07 x10^6/uL (4.30-5.70); RED CELL DISTRIBUTION WIDTH 13.4 % (11.5-14.5); WHITE BLOOD COUNT 9.2 x10^3/uL (4.0-11.0)
[2019-09-19] MEDS ORDERED: INSULIN LISPRO 300 UNITS/3 ML VIAL. SQ SCH (07:30)
[2019-09-19] MEDS ORDERED: PANTOPRAZOLE 40 MG TABLET.DR. PO SCH (07:30)
[2019-09-19] MEDS ORDERED: buPROPion XL 150 MG TAB.ER.24H. PO SCH (08:00)
--- NOTE | 2019-09-19 08:02 | PDOC1 ---
History and Physical Date of Admission Date of Admission DATE: 09/19/19 TIME: 07:57 Identification/Chief Complaint Chief Complaint Chest pain Source Source: Patient History of Present Illness History of Present Illness Mr Yun is a 59 year old m w/ PMHx Smoker, CAD, Cancer, CVA, Depression, Diabetes-Type II, GERD, Hypertension, TIA, colon cancer who p/w multiple complaints. 6 out of 10 headache for the last 3 weeks. He describes the headache as throbbing he states this headache is on the left side though he changed his mind and stated the headache is not on the left side is actually on the right side. He states he was seen in the ED 3 weeks ago and was told he had another TIA but when he followed up with his own doctor he told him he doesn't need to see a neurologist. He keeps talking referring to himself as "we". He is also complaining of a 6 out of 10 left-sided chest pain for 3 weeks, patient describes the pain as sharp and intermittent worse when he is coughing. He states he had a heart attack 5 years ago and has stents. He states he is supposed to be on Plavix which he stopped a week ago because he is supposed to have a spinal tap at [facility] sometime this week. Patient noted with pressured speech in ED. On further review he c/o Dizziness. Prior cad mild stenosis five years ago. mpi low risk last year in July 2018. EKG WNL, Trop negative x3, CXR and CT head unchanged. Cr 1.2. Mag 1.7. 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 Past Medical History Cardiovascular: CAD, HTN Pulmonary: COPD CENTRAL NERVOUS SYSTEM: CVA, Dementia GI: GERD Heme/Onc: Cancer Psych: Depression Musculoskeletal: Osteoarthritis Infectious disease: No pertinent hx Renal/: Chronic renal insuff Endocrine: Diabetes Past Surgical History Past Surgical History: Cholecystectomy, Cataract Removal, Colon Resection Family History Family History: Heart Disease, Hypertension Social History Smoke: No ALCOHOL: none Drugs: Cocaine Current Problem List Problem List Problems Medical Problems: (1) Chest pain Status: Acute (2) Dizziness Status: Acute (3) Headache Status: Acute Current Medications Current Medications Current Medications Aspirin (Edgar Aspirin) 325 mg 1X ONCE PO Last administered on 09/18/19at 19:22; Start 09/18/19 at 18:30; Stop 09/18/19 at 18:31; Status DC Nitroglycerin (Nitrostat) 0.4 mg PRN Q5MIN PRN SL CP RATING > 1/10; Start 09/18/19 at 18:30; Stop 09/19/19 at 18:29; Status Cancel Fentanyl Citrate (Fentanyl 2ml Vial) 50 mcg 1X ONCE IVP Last administered on 09/18/19at 19:22; Start 09/18/19 at 18:30; Stop 09/18/19 at 18:31; Status DC Ondansetron HCl (Zofran) 4 mg PRN Q8HRS PRN IV NAUSEA/VOMITING; Start 09/18/19 at 20:00; Stop 09/19/19 at 19:59 Fentanyl Citrate (Fentanyl 2ml Vial) 50 mcg PRN Q1HR PRN IV PAIN; Start 09/18/19 at 20:00; Stop 09/19/19 at 19:59 Acetaminophen (Tylenol) 650 mg PRN Q4HRS PRN PO FEVER; Start 09/18/19 at 20:00; Stop 09/19/19 at 19:59 Nitroglycerin (Nitrostat) 0.4 mg PRN Q5MIN PRN SL CHEST PAIN; Start 09/18/19 at 20:00; Stop 09/19/19 at 19:59; Status UNV Atorvastatin Calcium (Lipitor) 40 mg HS PO Last administered on 09/18/19at 22:37; Start 09/18/19 at 22:00 Benzonatate (Tessalon Perle) 100 mg PRN TID PRN PO COUGH; Start 09/18/19 at 21:45 Bupropion HCl (Wellbutrin Xl) 150 mg DAILYWBKFT PO ; Start 09/19/19 at 08:00 Citalopram Hydrobromide (CeleXA) 20 mg DAILY PO ; Start 09/19/19 at 09:00 Clopidogrel Bisulfate (Plavix) 75 mg DAILY PO ; Start 09/19/19 at 09:00; Status Cancel Donepezil HCl (Aricept) 5 mg HS PO Last administered on 09/18/19at 22:38; Start 09/18/19 at 22:00 Ergocalciferol (Vitamin D2) 50,000 unit WEEKLY PO ; Start 09/25/19 at 09:00 Furosemide (Lasix) 20 mg DAILY PO ; Start 09/19/19 at 09:00 Nitroglycerin (Nitrostat) 0.4 mg PRN Q5MIN PRN SL CHEST PAIN; Start 09/18/19 at 21:45 Tamsulosin HCl (Flomax) 0.4 mg HS PO Last administered on 09/18/19at 22:38; Start 09/18/19 at 22:00 Trazodone HCl (Desyrel) 50 mg HS PO Last administered on 09/18/19at 22:38; Start 09/18/19 at 22:00 Insulin Human Lispro (HumaLOG) 16 units TIDAC SQ ; Start 09/19/19 at 07:30 Non-Formulary Medication (Insulin Glargine,Hum.rec.anlog (Lantus Solostar)) 30 unit BID SQ ; Start 09/19/19 at 09:00; Status UNV Non-Formulary Medication (Liraglutide (Victoza 3-Marcos)) 1.2 mg DAILY SQ ; Start 09/19/19 at 09:00; Status UNV Losartan Potassium (Cozaar) 100 mg BID PO Last administered on 09/18/19at 22:38; Start 09/18/19 at 22:00 Pantoprazole Sodium (Protonix) 40 mg DAILYAC PO ; Start 09/19/19 at 07:30 Ropinirole HCl (Requip) 0.5 mg HS PO Last administered on 09/18/19at 22:38; Start 09/18/19 at 22:00 Insulin Glargine (Lantus Syringe) 30 unit BID SQ Last administered on 09/18/19at 22:45; Start 09/18/19 at 22:00 Influenza Virus Vaccine Quadrival (Afluria Quad 2019-20 (3yr Up) Syringe) 0.5 ml ONCE ONCE VAX IM ; Start 09/19/19 at 09:00; Stop 09/19/19 at 09:01 Magnesium Sulfate/ Dextrose 100 ml @ 100 mls/hr 1X ONCE IV ; Start 09/19/19 at 08:00; Stop 09/19/19 at 08:59; Status UNV Active Scripts Active Reported Benicar (Olmesartan Medoxomil) 20 Mg Tablet 1 Tab PO BID Donepezil Hcl 5 Mg Tablet 5 Mg PO HS Lantus Solostar (Insulin Glargine,Hum.rec.anlog) 100 Unit/1 Ml Insuln.pen 30 Unit SQ BID Benzonatate 100 Mg Capsule 100 Mg PO TID PRN Trazodone Hcl 50 Mg Tablet 50 Mg PO HS Victoza 3-Marcos (Liraglutide) 0.6 Mg/0.1 Ml Pen.injctr 1.2 Mg SQ DAILY NITROGLYCERIN SubLingual (Nitroglycerin) 0.4 Mg Tab.subl 0.4 Mg SL PRN Q5MIN PRN Novolog Flexpen (Insulin Aspart) 100 Unit/1 Ml Insuln.pen 16 Unit SQ TIDAC Vitamin D2 (Ergocalciferol (Vitamin D2)) 50,000 Unit Capsule 50,000 Unit PO WEEKLY Requip (Ropinirole Hcl) 0.5 Mg Tablet 0.5 Mg PO HS Omeprazole 10 Mg Capsule.dr 10 Mg PO DAILY Furosemide 20 Mg Tablet 20 Mg PO DAILY Clopidogrel (Clopidogrel Bisulfate) 75 Mg Tablet 75 Mg PO DAILY Citalopram Hbr (Citalopram Hydrobromide) 20 Mg Tablet 1 Tab PO DAILY Bupropion Xl (Bupropion Hcl) 150 Mg Tab.er.24h 1 Tab PO DAILYWBKFT Tamsulosin Hcl 0.4 Mg Cap.er.24h 1 Tab PO HS Atorvastatin Calcium 40 Mg Tablet 1 Tab PO HS Allergies Allergies: Coded Allergies: Penicillins (Verified Allergy, Intermediate, 11/14/17) codeine (Verified Allergy, Intermediate, 08/01/18) Tolerates hydrocodone and morphin ROS General: YES: Fatigue, Malaise; No: Chills, Night Sweats, Appetite, Other PSYCHOLOGICAL ROS: YES: Anxiety, Behavioral Disorder, Depression; No: Concentration difficultie, Decreased libido, Disorientation, Halluci nations, Hostility, Irritablity, Memory difficulties, Mood Swings, Obsessive thoughts, Physical abuse, Sexual abuse, Sleep disturbances, Suicidal ideation, Other Eyes: No Blurry vision, No Decreased vision, No Double vision, No Dry eyes, No Excessive tearing, No Eye Pain, No Itchy Eyes, No Loss of vision, No Photophobia, No Scotomata, No Uses contacts, No Uses glasses, No Other HEENT: No: Heacaches, Visual Changes, Hearing change, Nasal congestion, Nasal discharge, Oral lesions, Sinus pain, Sore Throat, Epistaxis, Sneezing, Snoring, Tinnitus, Vertigo, Vocal changes, Other ALLERGY AND IMMUNOLOGY: No: Hives, Insect Bite Sensitivity, Itchy/Watery Eyes, Nasal Congestion, Post Nasal Drip, Seasonal Allergies, Other Hematological and Lymphatic: No: Bleeding Problems, Blood Clots, Blood Transfusions, Brusing, Night Sweats, Pallor, Swollen Lymph Nodes, Other ENDOCRINE: No: Breast Changes, Galactorrhea, Hair Pattern Changes, Hot Flashes, Malaise/lethargy, Mood Swings, Palpitations, Polydipsia/polyuria, Skin Changes, Temperature Intolerance, Unexpected Weight Changes, Other Breast: No New/Changing Breast Lumps, No Nipple changes, No Nipple discharge, No Other Respiratory: No: Cough, Hemoptysis, Orthopnea, Pleuritic Pain, Shortness of breath, SOB with excertion, Sputum Changes, Stridor, Tachypnea, Wheezing, Other Cardiovascular: yes Chest Pain; No Palpitations, No Orthopnea, No Paroxysmal Noc. Dyspnea, No Edema, No Lt Headedness, No Other Gastrointestinal: Yes Nausea; No Vomiting, No Abdominal Pain, No Diarrhea, No Constipation, No Melena, No Hematochezia, No Other Genitourinary: No Dysuria, No Frequency, No Incontinence, No Hematuria, No Retention, No Discharge, No Urgency, No Pain, No Flank Pain, No Other, No , No , No , No , No , No , No Musculoskeletal: No Gait Disturbance, No Joint Pain, No Joint Stiffness, No Joint Swelling, No Muscle Pain, No Muscular Weakness, No Pain In:, No Swelling In:, No Other Neurological: Yes Dizziness, Yes Gait Disturbance; No Behavorial Changes, No Bowel/Bladder ControlChng, No Confusion, No Headaches, No Impaired Coord/balance, No Memory Loss, No Numbness/Tingling, No Seizures, No Speech Problems, No Tremors, No Visual Changes, No Weakness, No Other Skin: No Dry Skin, No Eczema, No Hair Changes, No Lumps, No Mole Changes, No Mottling, No Nail Changes, No Pruritus, No Rash, No Skin Lesion Changes, No Other, No Acne Physical Exam General: Alert, Cooperative, No acute distress HEENT: Atraumatic, PERRLA, EOMI, Mucous membr. moist/pink Lungs: Clear to auscultation, Normal air movement Heart: S1S2, RRR, no thrills, no rubs Abdomen: Normal bowel sounds, Soft, No tenderness, No hepatosplenomegaly, No masses Extremities: No clubbing, No cyanosis, No edema, Normal pulses, No tenderness/swelling Skin: No rashes, No breakdown, No significant lesion Neuro: Normal gait, Normal speech, Strength at 5/5 X4 ext, Normal tone, Sensation intact, Cranial nerves 3-12 NL, Reflexes 2+ Psych/Mental Status: Mental status NL, Mood NL Vitals Vitals Vital Signs Date Time Temp Pulse Resp B/P (MAP) Pulse Ox O2 Delivery O2 Flow Rate FiO2 09/19/19 03:00 97.6 72 16 133/58 (83) 91 Room Air 97.6 Labs Labs Laboratory Tests Test 09/18/19 19:00 09/19/19 01:00 09/19/19 07:00 White Blood Count 11.2 x10^3/uL (4.0-11.0) 9.2 x10^3/uL (4.0-11.0) Red Blood Count 4.31 x10^6/uL (4.30-5.70) 4.07 x10^6/uL (4.30-5.70) Hemoglobin 13.6 g/dL (13.0-17.5) 12.9 g/dL (13.0-17.5) Hematocrit 40.4 % (39.0-53.0) 38.1 % (39.0-53.0) Mean Corpuscular Volume 94 fL (79-100) 94 fL (79-100) Mean Corpuscular Hemoglobin 32 pg (25-35) 32 pg (25-35) Mean Corpuscular Hemoglobin Concent 34 g/dL (31-37) 34 g/dL (31-37) Red Cell Distribution Width 13.5 % (11.5-14.5) 13.4 % (11.5-14.5) Platelet Count 228 x10^3/uL (140-400) 193 x10^3/uL (140-400) Neutrophils (%) (Auto) 64 % (31-73) 62 % (31-73) Lymphocytes (%) (Auto) 28 % (24-48) 29 % (24-48) Monocytes (%) (Auto) 6 % (0-9) 6 % (0-9) Eosinophils (%) (Auto) 2 % (0-3) 2 % (0-3) Basophils (%) (Auto) 1 % (0-3) 1 % (0-3) Neutrophils # (Auto) 7.1 x10^3/uL (1.8-7.7) 5.7 x10^3/uL (1.8-7.7) Lymphocytes # (Auto) 3.1 x10^3/uL (1.0-4.8) 2.7 x10^3/uL (1.0-4.8) Monocytes # (Auto) 0.7 x10^3/uL (0.0-1.1) 0.6 x10^3/uL (0.0-1.1) Eosinophils # (Auto) 0.2 x10^3/uL (0.0-0.7) 0.1 x10^3/uL (0.0-0.7) Basophils # (Auto) 0.1 x10^3/uL (0.0-0.2) 0.1 x10^3/uL (0.0-0.2) Prothrombin Time 13.3 SEC (11.7-14.0) Prothromb Time International Ratio 1.0 (0.8-1.1) Activated Partial Thromboplast Time 30 SEC (24-38) Sodium Level 144 mmol/L (136-145) Potassium Level 4.1 mmol/L (3.5-5.1) Chloride Level 105 mmol/L (98-107) Carbon Dioxide Level 31 mmol/L (21-32) Anion Gap 8 (6-14) Blood Urea Nitrogen 16 mg/dL (8-26) Creatinine 1.2 mg/dL (0.7-1.3) Estimated GFR (Cockcroft-Gault) 61.8 BUN/Creatinine Ratio 13 (6-20) Glucose Level 105 mg/dL (70-99) Calcium Level 9.1 mg/dL (8.5-10.1) Magnesium Level 1.7 mg/dL (1.8-2.4) 1.9 mg/dL (1.8-2.4) Total Bilirubin 0.3 mg/dL (0.2-1.0) Aspartate Amino Transf (AST/SGOT) 24 U/L (15-37) Alanine Aminotransferase (ALT/SGPT) 25 U/L (16-63) Alkaline Phosphatase 62 U/L (46-116) Creatine Kinase 68 U/L (39-308) Creatine Kinase MB (Mass) < 0.5 ng/mL (0.0-3.6) Creatine Kinase MB Relative Index % (0-4) Troponin I Quantitative < 0.017 ng/mL (0.000-0.055) < 0.017 ng/mL (0.000-0.055) < 0.017 ng/mL (0.000-0.055) MD-Vwv-Q-Type Natriuretic Peptide 80 pg/mL (0-124) Total Protein 8.4 g/dL (6.4-8.2) Albumin 3.7 g/dL (3.4-5.0) Albumin/Globulin Ratio 0.8 (1.0-1.7) Lipase 376 U/L (73-393) Thyroid Stimulating Hormone (TSH) 1.764 uIU/mL (0.358-3.74) Laboratory Tests Test 09/18/19 19:00 09/19/19 01:00 09/19/19 07:00 White Blood Count 11.2 x10^3/uL (4.0-11.0) 9.2 x10^3/uL (4.0-11.0) Red Blood Count 4.31 x10^6/uL (4.30-5.70) 4.07 x10^6/uL (4.30-5.70) Hemoglobin 13.6 g/dL (13.0-17.5) 12.9 g/dL (13.0-17.5) Hematocrit 40.4 % (39.0-53.0) 38.1 % (39.0-53.0) Mean Corpuscular Volume 94 fL (79-100) 94 fL (79-100) Mean Corpuscular Hemoglobin 32 pg (25-35) 32 pg (25-35) Mean Corpuscular Hemoglobin Concent 34 g/dL (31-37) 34 g/dL (31-37) Red Cell Distribution Width 13.5 % (11.5-14.5) 13.4 % (11.5-14.5) Platelet Count 228 x10^3/uL (140-400) 193 x10^3/uL (140-400) Neutrophils (%) (Auto) 64 % (31-73) 62 % (31-73) Lymphocytes (%) (Auto) 28 % (24-48) 29 % (24-48) Monocytes (%) (Auto) 6 % (0-9) 6 % (0-9) Eosinophils (%) (Auto) 2 % (0-3) 2 % (0-3) Basophils (%) (Auto) 1 % (0-3) 1 % (0-3) Neutrophils # (Auto) 7.1 x10^3/uL (1.8-7.7) 5.7 x10^3/uL (1.8-7.7) Lymphocytes # (Auto) 3.1 x10^3/uL (1.0-4.8) 2.7 x10^3/uL (1.0-4.8) Monocytes # (Auto) 0.7 x10^3/uL (0.0-1.1) 0.6 x10^3/uL (0.0-1.1) Eosinophils # (Auto) 0.2 x10^3/uL (0.0-0.7) 0.1 x10^3/uL (0.0-0.7) Basophils # (Auto) 0.1 x10^3/uL (0.0-0.2) 0.1 x10^3/uL (0.0-0.2) Prothrombin Time 13.3 SEC (11.7-14.0) Prothromb Time International Ratio 1.0 (0.8-1.1) Activated Partial Thromboplast Time 30 SEC (24-38) Sodium Level 144 mmol/L (136-145) Potassium Level 4.1 mmol/L (3.5-5.1) Chloride Level 105 mmol/L (98-107) Carbon Dioxide Level 31 mmol/L (21-32) Anion Gap 8 (6-14) Blood Urea Nitrogen 16 mg/dL (8-26) Creatinine 1.2 mg/dL (0.7-1.3) Estimated GFR (Cockcroft-Gault) 61.8 BUN/Creatinine Ratio 13 (6-20) Glucose Level 105 mg/dL (70-99) Calcium Level 9.1 mg/dL (8.5-10.1) Magnesium Level 1.7 mg/dL (1.8-2.4) 1.9 mg/dL (1.8-2.4) Total Bilirubin 0.3 mg/dL (0.2-1.0) Aspartate Amino Transf (AST/SGOT) 24 U/L (15-37) Alanine Aminotransferase (ALT/SGPT) 25 U/L (16-63) Alkaline Phosphatase 62 U/L (46-116) Creatine Kinase 68 U/L (39-308) Creatine Kinase MB (Mass) < 0.5 ng/mL (0.0-3.6) Creatine Kinase MB Relative Index % (0-4) Troponin I Quantitative < 0.017 ng/mL (0.000-0.055) < 0.017 ng/mL (0.000-0.055) < 0.017 ng/mL (0.000-0.055) VG-Qjr-Q-Type Natriuretic Peptide 80 pg/mL (0-124) Total Protein 8.4 g/dL (6.4-8.2) Albumin 3.7 g/dL (3.4-5.0) Albumin/Globulin Ratio 0.8 (1.0-1.7) Lipase 376 U/L (73-393) Thyroid Stimulating Hormone (TSH) 1.764 uIU/mL (0.358-3.74) Images Images CXR - Cardiomegaly CT head - no acute abnormality Echo 06/20/2019 - The left ventricular systolic function is normal. The Ejection Fraction is 55-60%. There is normal LV segmental wall motion. Transmitral Doppler flow pattern is Grade I-abnormal relaxation pattern. Trace mitral regurgitation. Trace tricuspid regurgitation with an estimated PAP of 25 mmHg. There is no evidence of significant pericardial effusion. 08/03/18 - Nuclear medicine cardiac stress testing: (did not reach target heat rate) 1. No evidence of stress induced EKG changes 2. Normal perfusion at stress. Rest images not performed. 3. Normal EF at > 65% 4. Low risk study 5. Motion artifact. VTE Prophylaxis Ordered VTE Prophylaxis Devices: Yes VTE Pharmacological Prophylaxi: Yes Assessment/Plan Assessment/Plan A/P: Chest pain - could be cardiac, angina. Possibly a good candidate for long acting nitrates. He did have negative MPI this past year. Cardiology consulted. Echo and stress recently performed. He is not taking his meds Smoker - counseled on cessation h/o CAD - cont home meds h/o strokes - cont ASA, statin depression - con celexa, wellbutrin diabetes - A1c 7.4 approximately 2 years ago. Sliding scale, basal bolus plus while in house hypertension - cont meds hyperlipidemia - cont statin h/o colon cancer - in remission Aortic calcifications - on prior CT chest/abd/pelvis from 2018 Gait instability - combination of diabetic neuropathy and OA Vascular dementia: on aricept Diarrhea: per PCP FEN - ADA diet PPX - Lovenox FULL CODE Dispo - inpatient for chest pain, he has mostly ruled out JAIRO VASQUEZ MD Sep 19, 2019 08:02
[2019-09-19] MEDS ORDERED: MAGNESIUM SULFATE 1GM 100 ML IV ONE (08:30)
[2019-09-19 08:35] LABS: CALCIUM 8.7 mg/dL (8.5-10.1); CREATININE 1.2 mg/dL (0.7-1.3); GFR 61.8; POTASSIUM 3.9 mmol/L (3.5-5.1)
--- NOTE | 2019-09-19 08:47 | EKG ---
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
[2019-09-19] MEDS ORDERED: FLU VAX QS 2019-20 (36MOS+)/PF 0.5 ML SYRINGE. VAX IM ONE (09:00)
[2019-09-19] MEDS ORDERED: CITALOPRAM 20 MG TABLET. PO SCH (09:00)
[2019-09-19] MEDS ORDERED: FUROSEMIDE 20 MG TABLET PO SCH (09:00)
[2019-09-19] MEDS ORDERED: INSULIN GLARGINE HUM REC ANLOG 30 UNIT SQ SCH (09:00)
[2019-09-19] MEDS ORDERED: CLOPIDOGREL BISULFATE 75 MG TABLET PO SCH (09:00)
[2019-09-19] MEDS ORDERED: NON FORMULARY ITEM (Liraglutide (Victoza 3-Pak) 1.2 MG) SQ SCH (09:00)
[2019-09-19] MEDS: LOSARTAN POTASSIUM 50 MG TABLET. PO SCH (09:07)
[2019-09-19] MEDS: INSULIN GLARGINE SYRINGE. SQ SCH (09:19)
--- NOTE | 2019-09-19 09:57 | PDOC2 ---
DAX CASTANEDA RESEARCH ATTORNEY 09/19/19 0957: CARDIAC CONSULT DATE OF CONSULT Date of Consult DATE: 09/19/19 TIME: 09:51 REASON FOR CONSULT Reason for Consult: Chest pain REFERRING PHYSICIAN Referring Physician: Zhang SOURCE Source: Chart review, Patient HISTORY OF PRESENT ILLNESS HISTORY OF PRESENT ILLNESS This is a pleasant 59 yo male admitted for complains of BOUDREAUX. Reports that this has been throbbing but no significant focal symptoms. Occasionally he has this bouts of coughing and this was present prior to him having chest pian. Nonradiating, and this is sharp and no associated SOA or palpitations. Reports no exertional CP or MANN. He has been complaining of watery stools for 3 weeks now with last episode yesterday and no recent antibiotics. PAST MEDICAL HISTORY Past Medical History Cardiovascular: CAD (non-obstructive), HTN, HLP Pulmonary: COPD CENTRAL NERVOUS SYSTEM: CVA, Dementia GI: GERD Heme/Onc: Cancer (colon ) Psych: Depression Renal/: Chronic renal insuff Endocrine: Diabetes PAST SURGICAL HISTORY Past Surgical History Cholecystectomy, Cataract Removal, Colon Resection FAMILY HISTORY Family History Heart Disease (mother CHF), Hypertension SOCIAL HISTORY Social History Smoke: <1 pack per day ALCOHOL: none Drugs: Cocaine (hx- none in 10 years ) CURRENT MEDICATIONS CURRENT MEDICATIONS Current Medications Medications (Trade) Dose Ordered Sig/Viviana Route PRN Reason Start Time Stop Time Status Last Admin Dose Admin Aspirin (Edgar Aspirin) 325 mg 1X ONCE PO 09/18/19 18:30 09/18/19 18:31 DC 09/18/19 19:22 Fentanyl Citrate (Fentanyl 2ml Vial) 50 mcg 1X ONCE IVP 09/18/19 18:30 09/18/19 18:31 DC 09/18/19 19:22 Atorvastatin Calcium (Lipitor) 40 mg HS PO 09/18/19 22:00 09/18/19 22:37 Bupropion HCl (Wellbutrin Xl) 150 mg DAILYWBKFT PO 09/19/19 08:00 09/19/19 09:06 Citalopram Hydrobromide (CeleXA) 20 mg DAILY PO 09/19/19 09:00 09/19/19 09:07 Donepezil HCl (Aricept) 5 mg HS PO 09/18/19 22:00 09/18/19 22:38 Furosemide (Lasix) 20 mg DAILY PO 09/19/19 09:00 09/19/19 09:07 Tamsulosin HCl (Flomax) 0.4 mg HS PO 09/18/19 22:00 09/18/19 22:38 Trazodone HCl (Desyrel) 50 mg HS PO 09/18/19 22:00 09/18/19 22:38 Losartan Potassium (Cozaar) 100 mg BID PO 09/18/19 22:00 09/19/19 09:07 Pantoprazole Sodium (Protonix) 40 mg DAILYAC PO 09/19/19 07:30 09/19/19 09:06 Ropinirole HCl (Requip) 0.5 mg HS PO 09/18/19 22:00 09/18/19 22:38 Insulin Glargine (Lantus Syringe) 30 unit BID SQ 09/18/19 22:00 09/19/19 09:19 Magnesium Sulfate/ Dextrose 100 ml @ 100 mls/hr 1X ONCE IV 09/19/19 08:30 09/19/19 09:29 DC 09/19/19 09:22 ALLERGIES ALLERGIES: Coded Allergies: Penicillins (Verified Allergy, Intermediate, 11/14/17) codeine (Verified Allergy, Intermediate, 08/01/18) Tolerates hydrocodone and morphin ROS Review of System 14 point ROS evaluated with pertinent positives ntoed per HPI PHYSICAL EXAM General: Alert, Oriented X3, Cooperative, No acute distress HEENT: Atraumatic, Mucous membr. moist/pink Lungs: Clear to auscultation, Normal air movement Heart: Regular rate (SR), Normal S1, Normal S2, No murmurs Abdomen: Soft, No tenderness, Other (obese) Extremities: No cyanosis, No edema Skin: No breakdown, No significant lesion Neuro: Normal speech, Sensation intact Psych/Mental Status: Mental status NL, Mood NL MUSCULOSKELETAL: Osteoarthritic changes both hands VITALS/I&O VITALS/I&O: Vital Signs Date Time Temp Pulse Resp B/P (MAP) Pulse Ox O2 Delivery O2 Flow Rate FiO2 09/19/19 09:07 75 125/58 09/19/19 07:00 97.9 18 91 Room Air 97.9 I & O 09/18/19 09/18/19 09/19/19 15:00 23:00 07:00 Intake Total 450 ml Balance 450 ml LABS Lab: Laboratory Tests Test 09/18/19 19:00 09/19/19 01:00 09/19/19 07:00 09/19/19 08:03 White Blood Count 11.2 x10^3/uL (4.0-11.0) H 9.2 x10^3/uL (4.0-11.0) Red Blood Count 4.31 x10^6/uL (4.30-5.70) 4.07 x10^6/uL (4.30-5.70) L Hemoglobin 13.6 g/dL (13.0-17.5) 12.9 g/dL (13.0-17.5) L Hematocrit 40.4 % (39.0-53.0) 38.1 % (39.0-53.0) L Mean Corpuscular Volume 94 fL (79-100) 94 fL (79-100) Mean Corpuscular Hemoglobin 32 pg (25-35) 32 pg (25-35) Mean Corpuscular Hemoglobin Concent 34 g/dL (31-37) 34 g/dL (31-37) Red Cell Distribution Width 13.5 % (11.5-14.5) 13.4 % (11.5-14.5) Platelet Count 228 x10^3/uL (140-400) 193 x10^3/uL (140-400) Neutrophils (%) (Auto) 64 % (31-73) 62 % (31-73) Lymphocytes (%) (Auto) 28 % (24-48) 29 % (24-48) Monocytes (%) (Auto) 6 % (0-9) 6 % (0-9) Eosinophils (%) (Auto) 2 % (0-3) 2 % (0-3) Basophils (%) (Auto) 1 % (0-3) 1 % (0-3) Neutrophils # (Auto) 7.1 x10^3/uL (1.8-7.7) 5.7 x10^3/uL (1.8-7.7) Lymphocytes # (Auto) 3.1 x10^3/uL (1.0-4.8) 2.7 x10^3/uL (1.0-4.8) Monocytes # (Auto) 0.7 x10^3/uL (0.0-1.1) 0.6 x10^3/uL (0.0-1.1) Eosinophils # (Auto) 0.2 x10^3/uL (0.0-0.7) 0.1 x10^3/uL (0.0-0.7) Basophils # (Auto) 0.1 x10^3/uL (0.0-0.2) 0.1 x10^3/uL (0.0-0.2) Prothrombin Time 13.3 SEC (11.7-14.0) Prothrombin Time INR 1.0 (0.8-1.1) Activated Partial Thromboplast Time 30 SEC (24-38) Sodium Level 144 mmol/L (136-145) 145 mmol/L (136-145) Potassium Level 4.1 mmol/L (3.5-5.1) 3.9 mmol/L (3.5-5.1) Chloride Level 105 mmol/L (98-107) 107 mmol/L (98-107) Carbon Dioxide Level 31 mmol/L (21-32) 28 mmol/L (21-32) Anion Gap 8 (6-14) 10 (6-14) Blood Urea Nitrogen 16 mg/dL (8-26) 18 mg/dL (8-26) Creatinine 1.2 mg/dL (0.7-1.3) 1.2 mg/dL (0.7-1.3) Estimated GFR (Cockcroft-Gault) 61.8 61.8 BUN/Creatinine Ratio 13 (6-20) Glucose Level 105 mg/dL (70-99) H 90 mg/dL (70-99) Calcium Level 9.1 mg/dL (8.5-10.1) 8.7 mg/dL (8.5-10.1) Magnesium Level 1.7 mg/dL (1.8-2.4) L 1.9 mg/dL (1.8-2.4) Total Bilirubin 0.3 mg/dL (0.2-1.0) Aspartate Amino Transferase (AST) 24 U/L (15-37) Alanine Aminotransferase (ALT) 25 U/L (16-63) Alkaline Phosphatase 62 U/L (46-116) Creatine Kinase 68 U/L (39-308) Creatine Kinase MB (Mass) < 0.5 ng/mL (0.0-3.6) Creatine Kinase MB Relative Index % (0-4) Troponin I Quantitative < 0.017 ng/mL (0.000-0.055) < 0.017 ng/mL (0.000-0.055) < 0.017 ng/mL (0.000-0.055) SR-Qjh-L-Type Natriuretic Peptide 80 pg/mL (0-124) Total Protein 8.4 g/dL (6.4-8.2) H Albumin 3.7 g/dL (3.4-5.0) Albumin/Globulin Ratio 0.8 (1.0-1.7) L Lipase 376 U/L (73-393) Thyroid Stimulating Hormone (TSH) 1.764 uIU/mL (0.358-3.74) Glucose (Fingerstick) 80 mg/dL (70-99) Laboratory Tests 09/18/19 19:00 09/19/19 07:00 Laboratory Tests 09/18/19 19:00 09/19/19 07:00 ECHOCARDIOGRAM ECHOCARDIOGRAM <Conclusion> The left ventricular systolic function is normal. The Ejection Fraction is 55-60%. There is normal LV segmental wall motion. Transmitral Doppler flow pattern is Grade I-abnormal relaxation pattern. Trace mitral regurgitation. Trace tricuspid regurgitation with an estimated PAP of 25 mmHg. There is no evidence of significant pericardial effusion. DATE: 06/20/19 1701 STRESS TEST STRESS TEST Conclusion 1. No evidence of stress induced EKG changes 2. Normal perfusion at stress. Rest images not performed. 3. Normal EF at > 65% 4. Low risk study 5. Motion artifact. DATE: 08/03/18 1140 ASSESSMENT/PLAN ASSESSMENT/PLAN 1. Atypical chest pain: trops nml. EKG NSR. Noncardiac. due to coughing spells. 3. HTN; controlled 3. CAD, non-obstructive per cath 2013 4. HLP: recent lipids controlled 5. Diabetes, II: insulin therapy, BG controlled 6. H/o CVA 7. Possible tension BOUDREAUX 8. Vascular dementia: on aricept 9. Diarrhea: per PCP Recommendations 1. Secondary prevention measures. resume plavix when done with lumbar injection for his HNP 2. Will need wt loss 3. 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 Shook on November 10 at 9:15 LESLYE SHOOK MD 09/20/19 0921: CARDIAC CONSULT ASSESSMENT/PLAN ASSESSMENT/PLAN Patient seen and examined 09/19/19. Agree with BOX TOE FLANGER STITCHDOWNS's assessment and plan. Chest pain with atypical features and most probably musculoskeletal. Myocardial infarction has been ruled out. Recent 2-D echo showed normal LV function. No further cardiac workup is indicated at this time. Follow-up with our office in 1 month. DAX CASTANEDA APRN Sep 19, 2019 09:57 LESLYE SHOOK MD Sep 20, 2019 09:21
[2019-09-19 11:00] VITALS: BP 160/76
--- NOTE | 2019-09-19 13:04 | SNU/HH DC ---
DISCHARGE WITH HOME HEALTH DISCHARGE INFORMATION: Discharge Date: Sep 19, 2019 Final Diagnosis: Problems Medical Problems: (1) Chest pain Status: Acute (2) Dizziness Status: Acute (3) Headache Status: Acute Condition on Discharge: Stable CODE STATUS: Code Status: Full HOME HEALTH: Face to Face: I certify this patient is under my care and that I, or a nurse practitioner or physician's assistant county engineer working with me, had a face to face encounter that meets the physician face to face encounter requirements with this patient on 09/19/2019. 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 For: Community Resources Pt Meets Homebound Status: Fatigue w/ amb., Limited distance walking, Poor cognition, Psychological condition POST DISCHARGE ORDERS: Activity Instructions for Disc: Activity as tolerated Weight Bearing Status after Di: As tolerated Bathing Instructions: Shower-keep dressing dry DIET AFTER DISCHARGE: ADA Wound/Incision Care: Keep wound/cast CDI, Change dressing CHECKS AFTER DISCHARGE: Checks after discharge: Check blood press - daily FOLLOW-UP: DC TO SNF LABS: PCP in 2-3 weeks TREATMENT/EQUIPMENT ORDERS: Adaptive Equipment Issued: Front wheeled walker CERTIFICATION STATEMENT: Certification Statement: Certification Statement: Based on the above finding, I certify that this patient is confined to the home and needs intermittent custodial care, physical therapy and/or speech therapy, or continues to need occupational therapy.~ This patient is under my care, and I have initiated the establishment of the plan of care.~ This patient will be followed by myself or a community physician who will periodically review the plan of care. Home Meds Reported Medications Olmesartan Medoxomil (BENICAR) 20 Mg Tablet, 1 TAB PO BID, #30 TAB 5 Refills 08/02/18 Donepezil Hcl (DONEPEZIL HCL) 5 Mg Tablet, 5 MG PO HS, TAB 08/02/18 Insulin Glargine,Hum.rec.anlog (LANTUS SOLOSTAR) 100 Unit/1 Ml Insuln.pen, 30 UNIT SQ BID, #15 ML 3 Refills 08/01/18 Benzonatate (BENZONATATE) 100 Mg Capsule, 100 MG PO TID PRN for COUGH, CAP 11/13/17 Trazodone Hcl (TRAZODONE HCL) 50 Mg Tablet, 50 MG PO HS, TAB 11/13/17 Liraglutide (VICTOZA 3-ESTEE) 0.6 Mg/0.1 Ml Pen.injctr, 1.2 MG SQ DAILY, #9 ML 3 Refills 11/13/17 Nitroglycerin (NITROGLYCERIN SubLingual) 0.4 Mg Tab.subl, 0.4 MG SL PRN Q5MIN PRN for CHEST PAIN, BOTTLE 11/13/17 Insulin Aspart (NOVOLOG FLEXPEN) 100 Unit/1 Ml Insuln.pen, 16 UNIT SQ TIDAC, SYR 11/13/17 Ergocalciferol (Vitamin D2) (VITAMIN D2) 50,000 Unit Capsule, 48500 UNIT PO WEEKLY, CAP 11/13/17 Ropinirole Hcl (REQUIP) 0.5 Mg Tablet, 0.5 MG PO HS for rls, TAB 09/29/17 Omeprazole (OMEPRAZOLE) 10 Mg Capsule.dr, 10 MG PO DAILY, CAP 09/29/17 Furosemide (FUROSEMIDE) 20 Mg Tablet, 20 MG PO DAILY, TAB 09/29/17 Clopidogrel Bisulfate (CLOPIDOGREL) 75 Mg Tablet, 75 MG PO DAILY for TO PREVENT BLOOD CLOTS, #30 TAB 0 Refills 09/29/17 Citalopram Hydrobromide (CITALOPRAM HBR) 20 Mg Tablet, 1 TAB PO DAILY, #30 TAB 5 Refills 09/29/17 Bupropion Hcl (BUPROPION XL) 150 Mg Tab.er.24h, 1 TAB PO DAILYWBKFT, #30 TAB 2 Refills 09/29/17 Tamsulosin Hcl (TAMSULOSIN HCL) 0.4 Mg Cap.er.24h, 1 TAB PO HS, #30 01/31/15 Atorvastatin Calcium (ATORVASTATIN CALCIUM) 40 Mg Tablet, 1 TAB PO HS, #30 01/31/15 JAIRO VASQUEZ MD Sep 19, 2019 13:04
--- NOTE | 2019-09-19 13:11 | PDOC3 ---
Discharge Summary Visit Information Date of Admission: Sep 18, 2019 Date of Discharge: Sep 19, 2019 Admitting Diagnosis: Dizziness Final Diagnosis Problems Medical Problems: (1) Chest pain Status: Acute (2) Dizziness Status: Acute (3) Headache Status: Acute Brief Hospital Course Allergies Allergies Coded Allergies Type Severity Reaction Last Updated Verified Penicillins Allergy Intermediate 11/14/17 Yes codeine Allergy Intermediate 08/01/18 Yes Vital Signs Vital Signs Date Time Temp Pulse Resp B/P (MAP) Pulse Ox O2 Delivery O2 Flow Rate FiO2 09/19/19 11:00 98.2 81 20 160/76 (104) 95 Room Air 98.2 Lab Results Laboratory Tests Test 09/18/19 19:00 09/19/19 01:00 09/19/19 07:00 09/19/19 08:03 White Blood Count 11.2 x10^3/uL (4.0-11.0) 9.2 x10^3/uL (4.0-11.0) Red Blood Count 4.31 x10^6/uL (4.30-5.70) 4.07 x10^6/uL (4.30-5.70) Hemoglobin 13.6 g/dL (13.0-17.5) 12.9 g/dL (13.0-17.5) Hematocrit 40.4 % (39.0-53.0) 38.1 % (39.0-53.0) Mean Corpuscular Volume 94 fL (79-100) 94 fL (79-100) Mean Corpuscular Hemoglobin 32 pg (25-35) 32 pg (25-35) Mean Corpuscular Hemoglobin Concent 34 g/dL (31-37) 34 g/dL (31-37) Red Cell Distribution Width 13.5 % (11.5-14.5) 13.4 % (11.5-14.5) Platelet Count 228 x10^3/uL (140-400) 193 x10^3/uL (140-400) Neutrophils (%) (Auto) 64 % (31-73) 62 % (31-73) Lymphocytes (%) (Auto) 28 % (24-48) 29 % (24-48) Monocytes (%) (Auto) 6 % (0-9) 6 % (0-9) Eosinophils (%) (Auto) 2 % (0-3) 2 % (0-3) Basophils (%) (Auto) 1 % (0-3) 1 % (0-3) Neutrophils # (Auto) 7.1 x10^3/uL (1.8-7.7) 5.7 x10^3/uL (1.8-7.7) Lymphocytes # (Auto) 3.1 x10^3/uL (1.0-4.8) 2.7 x10^3/uL (1.0-4.8) Monocytes # (Auto) 0.7 x10^3/uL (0.0-1.1) 0.6 x10^3/uL (0.0-1.1) Eosinophils # (Auto) 0.2 x10^3/uL (0.0-0.7) 0.1 x10^3/uL (0.0-0.7) Basophils # (Auto) 0.1 x10^3/uL (0.0-0.2) 0.1 x10^3/uL (0.0-0.2) Prothrombin Time 13.3 SEC (11.7-14.0) Prothromb Time International Ratio 1.0 (0.8-1.1) Activated Partial Thromboplast Time 30 SEC (24-38) Sodium Level 144 mmol/L (136-145) 145 mmol/L (136-145) Potassium Level 4.1 mmol/L (3.5-5.1) 3.9 mmol/L (3.5-5.1) Chloride Level 105 mmol/L (98-107) 107 mmol/L (98-107) Carbon Dioxide Level 31 mmol/L (21-32) 28 mmol/L (21-32) Anion Gap 8 (6-14) 10 (6-14) Blood Urea Nitrogen 16 mg/dL (8-26) 18 mg/dL (8-26) Creatinine 1.2 mg/dL (0.7-1.3) 1.2 mg/dL (0.7-1.3) Estimated GFR (Cockcroft-Gault) 61.8 61.8 BUN/Creatinine Ratio 13 (6-20) Glucose Level 105 mg/dL (70-99) 90 mg/dL (70-99) Calcium Level 9.1 mg/dL (8.5-10.1) 8.7 mg/dL (8.5-10.1) Magnesium Level 1.7 mg/dL (1.8-2.4) 1.9 mg/dL (1.8-2.4) Total Bilirubin 0.3 mg/dL (0.2-1.0) Aspartate Amino Transf (AST/SGOT) 24 U/L (15-37) Alanine Aminotransferase (ALT/SGPT) 25 U/L (16-63) Alkaline Phosphatase 62 U/L (46-116) Creatine Kinase 68 U/L (39-308) Creatine Kinase MB (Mass) < 0.5 ng/mL (0.0-3.6) Creatine Kinase MB Relative Index % (0-4) Troponin I Quantitative < 0.017 ng/mL (0.000-0.055) < 0.017 ng/mL (0.000-0.055) < 0.017 ng/mL (0.000-0.055) NG-Ouf-Q-Type Natriuretic Peptide 80 pg/mL (0-124) Total Protein 8.4 g/dL (6.4-8.2) Albumin 3.7 g/dL (3.4-5.0) Albumin/Globulin Ratio 0.8 (1.0-1.7) Lipase 376 U/L (73-393) Thyroid Stimulating Hormone (TSH) 1.764 uIU/mL (0.358-3.74) Glucose (Fingerstick) 80 mg/dL (70-99) Test 09/19/19 12:16 Glucose (Fingerstick) 107 mg/dL (70-99) Laboratory Tests Test 09/18/19 19:00 09/19/19 01:00 09/19/19 07:00 09/19/19 08:03 White Blood Count 11.2 x10^3/uL (4.0-11.0) 9.2 x10^3/uL (4.0-11.0) Red Blood Count 4.31 x10^6/uL (4.30-5.70) 4.07 x10^6/uL (4.30-5.70) Hemoglobin 13.6 g/dL (13.0-17.5) 12.9 g/dL (13.0-17.5) Hematocrit 40.4 % (39.0-53.0) 38.1 % (39.0-53.0) Mean Corpuscular Volume 94 fL (79-100) 94 fL (79-100) Mean Corpuscular Hemoglobin 32 pg (25-35) 32 pg (25-35) Mean Corpuscular Hemoglobin Concent 34 g/dL (31-37) 34 g/dL (31-37) Red Cell Distribution Width 13.5 % (11.5-14.5) 13.4 % (11.5-14.5) Platelet Count 228 x10^3/uL (140-400) 193 x10^3/uL (140-400) Neutrophils (%) (Auto) 64 % (31-73) 62 % (31-73) Lymphocytes (%) (Auto) 28 % (24-48) 29 % (24-48) Monocytes (%) (Auto) 6 % (0-9) 6 % (0-9) Eosinophils (%) (Auto) 2 % (0-3) 2 % (0-3) Basophils (%) (Auto) 1 % (0-3) 1 % (0-3) Neutrophils # (Auto) 7.1 x10^3/uL (1.8-7.7) 5.7 x10^3/uL (1.8-7.7) Lymphocytes # (Auto) 3.1 x10^3/uL (1.0-4.8) 2.7 x10^3/uL (1.0-4.8) Monocytes # (Auto) 0.7 x10^3/uL (0.0-1.1) 0.6 x10^3/uL (0.0-1.1) Eosinophils # (Auto) 0.2 x10^3/uL (0.0-0.7) 0.1 x10^3/uL (0.0-0.7) Basophils # (Auto) 0.1 x10^3/uL (0.0-0.2) 0.1 x10^3/uL (0.0-0.2) Prothrombin Time 13.3 SEC (11.7-14.0) Prothromb Time International Ratio 1.0 (0.8-1.1) Activated Partial Thromboplast Time 30 SEC (24-38) Sodium Level 144 mmol/L (136-145) 145 mmol/L (136-145) Potassium Level 4.1 mmol/L (3.5-5.1) 3.9 mmol/L (3.5-5.1) Chloride Level 105 mmol/L (98-107) 107 mmol/L (98-107) Carbon Dioxide Level 31 mmol/L (21-32) 28 mmol/L (21-32) Anion Gap 8 (6-14) 10 (6-14) Blood Urea Nitrogen 16 mg/dL (8-26) 18 mg/dL (8-26) Creatinine 1.2 mg/dL (0.7-1.3) 1.2 mg/dL (0.7-1.3) Estimated GFR (Cockcroft-Gault) 61.8 61.8 BUN/Creatinine Ratio 13 (6-20) Glucose Level 105 mg/dL (70-99) 90 mg/dL (70-99) Calcium Level 9.1 mg/dL (8.5-10.1) 8.7 mg/dL (8.5-10.1) Magnesium Level 1.7 mg/dL (1.8-2.4) 1.9 mg/dL (1.8-2.4) Total Bilirubin 0.3 mg/dL (0.2-1.0) Aspartate Amino Transf (AST/SGOT) 24 U/L (15-37) Alanine Aminotransferase (ALT/SGPT) 25 U/L (16-63) Alkaline Phosphatase 62 U/L (46-116) Creatine Kinase 68 U/L (39-308) Creatine Kinase MB (Mass) < 0.5 ng/mL (0.0-3.6) Creatine Kinase MB Relative Index % (0-4) Troponin I Quantitative < 0.017 ng/mL (0.000-0.055) < 0.017 ng/mL (0.000-0.055) < 0.017 ng/mL (0.000-0.055) HA-Zlg-J-Type Natriuretic Peptide 80 pg/mL (0-124) Total Protein 8.4 g/dL (6.4-8.2) Albumin 3.7 g/dL (3.4-5.0) Albumin/Globulin Ratio 0.8 (1.0-1.7) Lipase 376 U/L (73-393) Thyroid Stimulating Hormone (TSH) 1.764 uIU/mL (0.358-3.74) Glucose (Fingerstick) 80 mg/dL (70-99) Test 09/19/19 12:16 Glucose (Fingerstick) 107 mg/dL (70-99) Brief Hospital Course Mr Yun is a 59 year old m w/ PMHx Smoker, CAD, Cancer, CVA, Depression, Diabetes-Type II, GERD, Hypertension, TIA, colon cancer who p/w multiple complaints. 6 out of 10 headache for the last 3 weeks. He describes the headache as throbbing he states this headache is on the left side though he changed his mind and stated the headache is not on the left side is actually on the right side. He states he was seen in the ED 3 weeks ago and was told he had another TIA but when he followed up with his own doctor he told him he doesn't need to see a neurologist. He keeps talking referring to himself as "we". He is also complaining of a 6 out of 10 left-sided chest pain for 3 weeks, patient describes the pain as sharp and intermittent worse when he is coughing. He states he had a heart attack 5 years ago and has stents. He states he is supposed to be on Plavix which he stopped a week ago because he is supposed to have a spinal tap at [facility] sometime this week. Patient noted with pressured speech in ED. On further review he c/o Dizziness. Prior cad mild stenosis five years ago. mpi low risk last year in July 2018. EKG WNL, Trop negative x3, CXR and CT head unchanged. Cr 1.2. Mag 1.7. 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 Seen by Cardiology, ruled out for ME. Ok for d/c home with home health CXR - Cardiomegaly CT head - no acute abnormality Echo 06/20/2019 - The left ventricular systolic function is normal. The Ejection Fraction is 55-60%. There is normal LV segmental wall motion. Transmitral Doppler flow pattern is Grade I-abnormal relaxation pattern. Trace mitral regurgitation. Trace tricuspid regurgitation with an estimated PAP of 25 mmHg. There is no evidence of significant pericardial effusion. 08/03/18 - Nuclear medicine cardiac stress testing: (did not reach target heat rate) 1. No evidence of stress induced EKG changes 2. Normal perfusion at stress. Rest images not performed. 3. Normal EF at > 65% 4. Low risk study 5. Motion artifact. Problem List: Chest pain - could be cardiac, angina. Possibly a good candidate for long acting nitrates. He did have negative MPI this past year. Cardiology consulted. Echo and stress recently performed. He is not taking his meds Smoker - counseled on cessation h/o CAD - cont home meds h/o strokes - cont ASA, statin depression - con celexa, wellbutrin diabetes - A1c 7.4 approximately 2 years ago. Sliding scale, basal bolus plus while in house hypertension - cont meds hyperlipidemia - cont statin h/o colon cancer - in remission Aortic calcifications - on prior CT chest/abd/pelvis from 2018 Gait instability - combination of diabetic neuropathy and OA Vascular dementia: on aricept Diarrhea: per PCP Greater than 135 minutes on same day admit and d/c Discharge Information Condition at Discharge: Improved Follow Up: Weeks (1) Disposition/Orders: D/C to Home w/ HH Scheduled Atorvastatin Calcium (Atorvastatin Calcium) 40 Mg Tablet, 1 TAB PO HS, #30 (Reported) Entered as Reported by: CAMERON STRICKLAND RN on 01/31/151112 Last Action: Continued on 09/18/192143 by GEOVANY CERDA Bupropion Hcl (Bupropion Xl) 150 Mg Tab.er.24h, 1 TAB PO DAILYWBKFT, #30 Ref 2 (Reported) Entered as Reported by: BRIANA DEL RIO on 09/29/171926 Last Action: Continued on 09/18/192143 by GEOVANY ECRDA Citalopram Hydrobromide (Citalopram Hbr) 20 Mg Tablet, 1 TAB PO DAILY, #30 Ref 5 (Reported) Entered as Reported by: BRIANA DEL RIO on 09/29/171927 Last Action: Continued on 09/18/192143 by GEOVANY CERDA Clopidogrel Bisulfate (Clopidogrel) 75 Mg Tablet, 75 MG PO DAILY for TO PREVENT BLOOD CLOTS, #30 Ref 0 (Reported) Entered as Reported by: BRIANA DEL RIO on 09/29/171927 Last Action: Reviewed on 09/18/192247 by GEOVANY CERDA Donepezil Hcl (Donepezil Hcl) 5 Mg Tablet, 5 MG PO HS, (Reported) Entered as Reported by: MARTÍN KHAN on 08/02/18 1205 Last Action: Continued on 09/18/192143 by GEOVANY CERDA Ergocalciferol (Vitamin D2) (Vitamin D2) 50,000 Unit Capsule, 50,000 UNIT PO WEEKLY, (Reported) Entered as Reported by: MATEUSZ WASSERMAN on 11/13/171708 Last Action: Continued on 09/18/192143 by GEOVANY CERDA Furosemide (Furosemide) 20 Mg Tablet, 20 MG PO DAILY, (Reported) Entered as Reported by: BRIANA DEL RIO on 09/29/171928 Last Action: Continued on 09/18/192143 by GEOVANY CERDA Insulin Aspart (Novolog Flexpen) 100 Unit/1 Ml Insuln.pen, 16 UNIT SQ TIDAC, (Reported) Entered as Reported by: MATEUSZ WASSERMAN on 11/13/171708 Last Action: Converted on 09/18/192143 by GEOVANY CERDA Insulin Glargine,Hum.rec.anlog (Lantus Solostar) 100 Unit/1 Ml Insuln.pen, 30 UNIT SQ BID, #15 Ref 3 (Reported) Entered as Reported by: YANETH ROD RN on 08/01/182147 Last Action: Converted on 09/18/192143 by GEOVANY CERDA Liraglutide (Victoza 3-Marcos) 0.6 Mg/0.1 Ml Pen.injctr, 1.2 MG SQ DAILY, #9 Ref 3 (Reported) Entered as Reported by: MATEUSZ WASSERMAN on 11/13/171708 Last Action: Converted on 09/18/192143 by GEOVANY CERDA Olmesartan Medoxomil (Benicar) 20 Mg Tablet, 1 TAB PO BID, #30 Ref 5 (Reported) Entered as Reported by: MARTÍN KHAN on 08/02/181204 Last Action: Converted on 09/18/192143 by GEOVANY CERDA Omeprazole (Omeprazole) 10 Mg Capsule.dr, 10 MG PO DAILY, (Reported) Entered as Reported by: BRIANA DEL RIO on 09/29/171928 Last Action: Converted on 09/18/192143 by GEOVANY CERDA Ropinirole Hcl (Requip) 0.5 Mg Tablet, 0.5 MG PO HS for rls, (Reported) Entered as Reported by: BRIANA DEL RIO on 09/29/171930 Last Action: Converted on 09/18/192143 by GEOVANY CERDA Tamsulosin Hcl (Tamsulosin Hcl) 0.4 Mg Cap.er.24h, 1 TAB PO HS, #30 (Reported) Entered as Reported by: CAMERON STRICKLAND RN on 01/31/15 1113 Last Action: Continued on 09/18/192143 by GEOVANY CERDA Trazodone Hcl (Trazodone Hcl) 50 Mg Tablet, 50 MG PO HS, (Reported) Entered as Reported by: MATEUSZ WASSERMAN on 11/13/171708 Last Action: Continued on 09/18/192143 by GEOVANY CERDA Scheduled PRN Benzonatate (Benzonatate) 100 Mg Capsule, 100 MG PO TID PRN for COUGH, (Reported) Entered as Reported by: MATEUSZ WASSERMAN on 11/13/171708 Last Action: Continued on 09/18/192143 by GEOVANY CERDA Nitroglycerin (NITROGLYCERIN SubLingual) 0.4 Mg Tab.subl, 0.4 MG SL PRN Q5MIN PRN for CHEST PAIN, (Reported) Entered as Reported by: MATEUSZ WASSERMAN on 11/13/171708 Last Action: Continued on 09/18/192143 by JAIRO FISHER MD Sep 19, 2019 13:11
--- NOTE | 2019-09-19 13:21 | NUR ---
SS following for discharge planning. SS reviewed pt chart. Pt is from home and is currently on room air. Pt was previously on services with [facility]. SS contacted Eugenio from [facility], , and was notified that pt is no longer on services with [facility]. Discharge orders for home healthcare received. Pt has [place] Medicaid. SS phoned and faxed discharge orders and referral to [facility], ; fax [phone]. SS will continue to follow for discharge planning.
--- NOTE | 2019-09-19 14:18 | NUR ---
Patient is discharged to home. Discharge instructions given. PIV and heart monitor removed. Escorted patient to ER entrance per wheelchair into a private vehicle.
--- NOTE | 2019-09-19 16:54 | PDOC2 ---
NEUROLOGY CONSULT Date of Admission Date of Admission DATE: 09/19/19 TIME: 16:44 Reason for Consult Reason for Consult: IMPRESSION: Headache. Dizziness. DM. HTN. HLD. CAD. COPD. Colon cancer. Old CVA. GERD. Obesity. RECOMMENDATIONS/PLAN: Treat medical diseases. Pain control. Weight reduction. OT/PT. FU with PCP. HISTORY OF PRESENT ILLNESS This is a 59-year-old male patient admitted with complains of B[place]. He stated that he has been having cough and fever and headaches. He stated he did not have headaches often but this time had headaches for several days to 2 weeks. No symptoms of MS changes, projectile vomiting, decreased vision, diplopia. ataxia, numbness or weakness. Neurology was requested for consultation on 09/19/19. He stated his headaches were resolved. PAST MEDICAL HISTORY Past Medical History Cardiovascular: CAD (non-obstructive), HTN, HLP Pulmonary: COPD CENTRAL NERVOUS SYSTEM: CVA, Dementia GI: GERD Heme/Onc: Cancer (colon ) Psych: Depression Renal/: Chronic renal insuff Endocrine: Diabetes PAST SURGICAL HISTORY Cholecystectomy, Cataract Removal, Colon Resection FAMILY HISTORY Heart Disease (mother CHF), Hypertension ALLERGIES Coded Allergies: Penicillins (Verified Allergy, Intermediate, 11/14/17) Codeine (Verified Allergy, Intermediate, 08/01/18) Tolerates hydrocodone and morphin SOCIAL HISTORY Smoke: <1 pack per day ALCOHOL: none Drugs: Cocaine (hx- none in 10 years ) MEDICATIONS: Refer to MAR REVIEW OF SYSTEMS: Constitutional: Obesity. Head: No recent traumatic brain or head injury. Skin: No edema, or rash. Ear: No infection. Eyes: No vision loss or color blindness. Nose: No bleeding or purulent discharges. Neck: No injury. Cardiac: HTN, HLD. Pulmonary: COPD. GI: No GI ulcer, GI bleeding. Urinary/genital: No dysuria, incontinence, urinary retention. Endocrinologic: Diabetes Mellitus, obesity. Skeletomuscular: No muscular atrophy, deformity. Neurological: see HP. Psychiatric: Denies drug use/abuse. Otherwise, not -wfrun review of systems. PHYSICAL EXAMINATION: General appearance is in no acute distress. HEENT: Normocephalic and nontraumatic. Eyes, nose, ears, and throat are unremarkable. Neck is supple. No lymphadenopathy. No crepitus. Cardiovascular: S1, S2, regular rate and rhythm. Pulmonary: Clear to auscultation bilaterally. Abdomen: Bowel sounds are positive. Extremities: No rash, lesions, or edema. No restriction of range of motion NEUROLOGICAL EXAMINATION: Alert Oriented to time, place and person. PERRL. EOMI. CN: no focal findings. Muscle tone: within normal. Muscle strength: 5 DTR: 1+ Plantar reflex: Flexor response bilaterally Gait: not examined in bed. Sensory exam: no abnormal findings. No cerebellar signs elicited. F-T-N test fine. Current Medications Current Medications Current Medications Aspirin (Edgar Aspirin) 325 mg 1X ONCE PO Last administered on 09/18/19 19:22; Start 09/18/19 at 18:30; Stop 09/18/19 at 18:31; Status DC Nitroglycerin (Nitrostat) 0.4 mg PRN Q5MIN PRN SL CP RATING > 1/10; Start 09/18/19 at 18:30; Stop 09/19/19 at 18:29; Status Cancel Fentanyl Citrate (Fentanyl 2ml Vial) 50 mcg 1X ONCE IVP Last administered on 09/18/19at 19:22; Start 09/18/19 at 18:30; Stop 09/18/19 at 18:31; Status DC Ondansetron HCl (Zofran) 4 mg PRN Q8HRS PRN IV NAUSEA/VOMITING; Start 09/18/19 at 20:00; Stop 09/19/19 at 14:23; Status DC Fentanyl Citrate (Fentanyl 2ml Vial) 50 mcg PRN Q1HR PRN IV PAIN; Start 09/18/19 at 20:00; Stop 09/19/19 at 14:23; Status DC Acetaminophen (Tylenol) 650 mg PRN Q4HRS PRN PO FEVER Last administered on 09/19/19at 10:16; Start 09/18/19 at 20:00; Stop 09/19/19 at 14:23; Status DC Nitroglycerin (Nitrostat) 0.4 mg PRN Q5MIN PRN SL CHEST PAIN; Start 09/18/19 at 20:00; Stop 09/19/19 at 19:59; Status UNV Atorvastatin Calcium (Lipitor) 40 mg HS PO Last administered on 09/18/19at 22:37; Start 09/18/19 at 22:00; Stop 09/19/19 at 14:23; Status DC Benzonatate (Tessalon Perle) 100 mg PRN TID PRN PO COUGH; Start 09/18/19 at 21:45; Stop 09/19/19 at 14:23; Status DC Bupropion HCl (Wellbutrin Xl) 150 mg DAILYWBKFT PO Last administered on 09/19/19at 09:06; Start 09/19/19 at 08:00; Stop 09/19/19 at 14:23; Status DC Citalopram Hydrobromide (CeleXA) 20 mg DAILY PO Last administered on 09/19/19at 09:07; Start 09/19/19 at 09:00; Stop 09/19/19 at 14:23; Status DC Clopidogrel Bisulfate (Plavix) 75 mg DAILY PO ; Start 09/19/19 at 09:00; Status Cancel Donepezil HCl (Aricept) 5 mg HS PO Last administered on 09/18/19at 22:38; Start 09/18/19 at 22:00; Stop 09/19/19 at 14:23; Status DC Ergocalciferol (Vitamin D2) 50,000 unit WEEKLY PO ; Start 09/25/19 at 09:00; Stop 09/19/19 at 14:23; Status DC Furosemide (Lasix) 20 mg DAILY PO Last administered on 09/19/19at 09:07; Start 09/19/19 at 09:00; Stop 09/19/19 at 14:23; Status DC Nitroglycerin (Nitrostat) 0.4 mg PRN Q5MIN PRN SL CHEST PAIN; Start 09/18/19 at 21:45; Stop 09/19/19 at 14:23; Status DC Tamsulosin HCl (Flomax) 0.4 mg HS PO Last administered on 09/18/19at 22:38; Start 09/18/19 at 22:00; Stop 09/19/19 at 14:23; Status DC Trazodone HCl (Desyrel) 50 mg HS PO Last administered on 09/18/19at 22:38; Start 09/18/19 at 22:00; Stop 09/19/19 at 14:23; Status DC Insulin Human Lispro (HumaLOG) 16 units TIDAC SQ ; Start 09/19/19 at 07:30; Stop 09/19/19 at 14:23; Status DC Non-Formulary Medication (Insulin Glargine,Hum.rec.anlog (Lantus Solostar)) 30 unit BID SQ ; Start 09/19/19 at 09:00; Status UNV Non-Formulary Medication (Liraglutide (Victoza 3-Marcos)) 1.2 mg DAILY SQ ; Start 09/19/19 at 09:00; Status UNV Losartan Potassium (Cozaar) 100 mg BID PO Last administered on 09/19/19at 09:07; Start 09/18/19 at 22:00; Stop 09/19/19 at 14:23; Status DC Pantoprazole Sodium (Protonix) 40 mg DAILYAC PO Last administered on 09/19/19at 09:06; Start 09/19/19 at 07:30; Stop 09/19/19 at 14:23; Status DC Ropinirole HCl (Requip) 0.5 mg HS PO Last administered on 09/18/19at 22:38; Start 09/18/19 at 22:00; Stop 09/19/19 at 14:23; Status DC Insulin Glargine (Lantus Syringe) 30 unit BID SQ Last administered on 09/19/19at 09:19; Start 09/18/19 at 22:00; Stop 09/19/19 at 14:23; Status DC Influenza Virus Vaccine Quadrival (Afluria Quad 2019-20 (3yr Up) Syringe) 0.5 ml ONCE ONCE VAX IM ; Start 09/19/19 at 09:00; Stop 09/19/19 at 09:01; Status DC Magnesium Sulfate/ Dextrose 100 ml @ 100 mls/hr 1X ONCE IV Last administered on 09/19/19at 09:22; Start 09/19/19 at 08:30; Stop 09/19/19 at 09:29; Status DC Active Scripts Active Reported Benicar (Olmesartan Medoxomil) 20 Mg Tablet 1 Tab PO BID Donepezil Hcl 5 Mg Tablet 5 Mg PO HS Lantus Solostar (Insulin Glargine,Hum.rec.anlog) 100 Unit/1 Ml Insuln.pen 30 Unit SQ BID Benzonatate 100 Mg Capsule 100 Mg PO TID PRN Trazodone Hcl 50 Mg Tablet 50 Mg PO HS Victoza 3-Marcos (Liraglutide) 0.6 Mg/0.1 Ml Pen.injctr 1.2 Mg SQ DAILY NITROGLYCERIN SubLingual (Nitroglycerin) 0.4 Mg Tab.subl 0.4 Mg SL PRN Q5MIN PRN Novolog Flexpen (Insulin Aspart) 100 Unit/1 Ml Insuln.pen 16 Unit SQ TIDAC Vitamin D2 (Ergocalciferol (Vitamin D2)) 50,000 Unit Capsule 50,000 Unit PO WEEKLY Requip (Ropinirole Hcl) 0.5 Mg Tablet 0.5 Mg PO HS Omeprazole 10 Mg Capsule.dr 10 Mg PO DAILY Furosemide 20 Mg Tablet 20 Mg PO DAILY Clopidogrel (Clopidogrel Bisulfate) 75 Mg Tablet 75 Mg PO DAILY Citalopram Hbr (Citalopram Hydrobromide) 20 Mg Tablet 1 Tab PO DAILY Bupropion Xl (Bupropion Hcl) 150 Mg Tab.er.24h 1 Tab PO DAILYWBKFT Tamsulosin Hcl 0.4 Mg Cap.er.24h 1 Tab PO HS Atorvastatin Calcium 40 Mg Tablet 1 Tab PO HS Allergies Allergies: Allergies Coded Allergies Type Severity Reaction Last Updated Verified Penicillins Allergy Intermediate 11/14/17 Yes codeine Allergy Intermediate 08/01/18 Yes ROS Review of System The patient denies any associated fevers, chills, headache, ear pain, rhinorrhea, sore throat, stiff neck, productive cough, chest pain, shortness of breath, back or flank pain, abdominal pain, nausea, vomiting, diarrhea, constipation, dysuria, rash, numbness, weakness, tingling, incontinence, difficulty ambulating, or diaphoresis. Physical Exam Physical Exam General: Well developed, well nourished, no acute distress, well appearing HEENT: Pupils equally round and reactive to light, EOMI, no discharge, normal conjunctiva Neck: Supple, no nuchal rigidity, no JVD, trachea midline, no tenderness Cardiac: RRR, no murmurs, no gallops, no rubs Chest/Lungs: CTAB, no wheeze, no rhonchi, no crackles Abdomen: soft, non-distended, no guarding, no peritoneal signs, non-tender Back: No tenderness Extremities: no edema, pulses intact, non-tender,capillary refill <3 sec bilateral upper and lower extremities, Neuro: Alert and oriented x 4, no focal deficits, normal speech Vitals Vitals: Vital Signs Date Time Temp Pulse Resp B/P (MAP) Pulse Ox O2 Delivery O2 Flow Rate FiO2 09/19/19 11:00 98.2 81 20 160/76 (104) 95 Room Air 98.2 Labs Labs Laboratory Tests Test 09/18/19 19:00 09/19/19 01:00 09/19/19 07:00 09/19/19 08:03 White Blood Count 11.2 x10^3/uL (4.0-11.0) 9.2 x10^3/uL (4.0-11.0) Red Blood Count 4.31 x10^6/uL (4.30-5.70) 4.07 x10^6/uL (4.30-5.70) Hemoglobin 13.6 g/dL (13.0-17.5) 12.9 g/dL (13.0-17.5) Hematocrit 40.4 % (39.0-53.0) 38.1 % (39.0-53.0) Mean Corpuscular Volume 94 fL (79-100) 94 fL (79-100) Mean Corpuscular Hemoglobin 32 pg (25-35) 32 pg (25-35) Mean Corpuscular Hemoglobin Concent 34 g/dL (31-37) 34 g/dL (31-37) Red Cell Distribution Width 13.5 % (11.5-14.5) 13.4 % (11.5-14.5) Platelet Count 228 x10^3/uL (140-400) 193 x10^3/uL (140-400) Neutrophils (%) (Auto) 64 % (31-73) 62 % (31-73) Lymphocytes (%) (Auto) 28 % (24-48) 29 % (24-48) Monocytes (%) (Auto) 6 % (0-9) 6 % (0-9) Eosinophils (%) (Auto) 2 % (0-3) 2 % (0-3) Basophils (%) (Auto) 1 % (0-3) 1 % (0-3) Neutrophils # (Auto) 7.1 x10^3/uL (1.8-7.7) 5.7 x10^3/uL (1.8-7.7) Lymphocytes # (Auto) 3.1 x10^3/uL (1.0-4.8) 2.7 x10^3/uL (1.0-4.8) Monocytes # (Auto) 0.7 x10^3/uL (0.0-1.1) 0.6 x10^3/uL (0.0-1.1) Eosinophils # (Auto) 0.2 x10^3/uL (0.0-0.7) 0.1 x10^3/uL (0.0-0.7) Basophils # (Auto) 0.1 x10^3/uL (0.0-0.2) 0.1 x10^3/uL (0.0-0.2) Prothrombin Time 13.3 SEC (11.7-14.0) Prothromb Time International Ratio 1.0 (0.8-1.1) Activated Partial Thromboplast Time 30 SEC (24-38) Sodium Level 144 mmol/L (136-145) 145 mmol/L (136-145) Potassium Level 4.1 mmol/L (3.5-5.1) 3.9 mmol/L (3.5-5.1) Chloride Level 105 mmol/L (98-107) 107 mmol/L (98-107) Carbon Dioxide Level 31 mmol/L (21-32) 28 mmol/L (21-32) Anion Gap 8 (6-14) 10 (6-14) Blood Urea Nitrogen 16 mg/dL (8-26) 18 mg/dL (8-26) Creatinine 1.2 mg/dL (0.7-1.3) 1.2 mg/dL (0.7-1.3) Estimated GFR (Cockcroft-Gault) 61.8 61.8 BUN/Creatinine Ratio 13 (6-20) Glucose Level 105 mg/dL (70-99) 90 mg/dL (70-99) Calcium Level 9.1 mg/dL (8.5-10.1) 8.7 mg/dL (8.5-10.1) Magnesium Level 1.7 mg/dL (1.8-2.4) 1.9 mg/dL (1.8-2.4) Total Bilirubin 0.3 mg/dL (0.2-1.0) Aspartate Amino Transf (AST/SGOT) 24 U/L (15-37) Alanine Aminotransferase (ALT/SGPT) 25 U/L (16-63) Alkaline Phosphatase 62 U/L (46-116) Creatine Kinase 68 U/L (39-308) Creatine Kinase MB (Mass) < 0.5 ng/mL (0.0-3.6) Creatine Kinase MB Relative Index % (0-4) Troponin I Quantitative < 0.017 ng/mL (0.000-0.055) < 0.017 ng/mL (0.000-0.055) < 0.017 ng/mL (0.000-0.055) SC-Ivw-E-Type Natriuretic Peptide 80 pg/mL (0-124) Total Protein 8.4 g/dL (6.4-8.2) Albumin 3.7 g/dL (3.4-5.0) Albumin/Globulin Ratio 0.8 (1.0-1.7) Lipase 376 U/L (73-393) Thyroid Stimulating Hormone (TSH) 1.764 uIU/mL (0.358-3.74) Glucose (Fingerstick) 80 mg/dL (70-99) Test 09/19/19 12:16 09/19/19 12:25 Glucose (Fingerstick) 107 mg/dL (70-99) Erythrocyte Sedimentation Rate 59 (0-15) Laboratory Tests Test 09/18/19 19:00 09/19/19 01:00 09/19/19 07:00 09/19/19 08:03 White Blood Count 11.2 x10^3/uL (4.0-11.0) 9.2 x10^3/uL (4.0-11.0) Red Blood Count 4.31 x10^6/uL (4.30-5.70) 4.07 x10^6/uL (4.30-5.70) Hemoglobin 13.6 g/dL (13.0-17.5) 12.9 g/dL (13.0-17.5) Hematocrit 40.4 % (39.0-53.0) 38.1 % (39.0-53.0) Mean Corpuscular Volume 94 fL (79-100) 94 fL (79-100) Mean Corpuscular Hemoglobin 32 pg (25-35) 32 pg (25-35) Mean Corpuscular Hemoglobin Concent 34 g/dL (31-37) 34 g/dL (31-37) Red Cell Distribution Width 13.5 % (11.5-14.5) 13.4 % (11.5-14.5) Platelet Count 228 x10^3/uL (140-400) 193 x10^3/uL (140-400) Neutrophils (%) (Auto) 64 % (31-73) 62 % (31-73) Lymphocytes (%) (Auto) 28 % (24-48) 29 % (24-48) Monocytes (%) (Auto) 6 % (0-9) 6 % (0-9) Eosinophils (%) (Auto) 2 % (0-3) 2 % (0-3) Basophils (%) (Auto) 1 % (0-3) 1 % (0-3) Neutrophils # (Auto) 7.1 x10^3/uL (1.8-7.7) 5.7 x10^3/uL (1.8-7.7) Lymphocytes # (Auto) 3.1 x10^3/uL (1.0-4.8) 2.7 x10^3/uL (1.0-4.8) Monocytes # (Auto) 0.7 x10^3/uL (0.0-1.1) 0.6 x10^3/uL (0.0-1.1) Eosinophils # (Auto) 0.2 x10^3/uL (0.0-0.7) 0.1 x10^3/uL (0.0-0.7) Basophils # (Auto) 0.1 x10^3/uL (0.0-0.2) 0.1 x10^3/uL (0.0-0.2) Prothrombin Time 13.3 SEC (11.7-14.0) Prothromb Time International Ratio 1.0 (0.8-1.1) Activated Partial Thromboplast Time 30 SEC (24-38) Sodium Level 144 mmol/L (136-145) 145 mmol/L (136-145) Potassium Level 4.1 mmol/L (3.5-5.1) 3.9 mmol/L (3.5-5.1) Chloride Level 105 mmol/L (98-107) 107 mmol/L (98-107) Carbon Dioxide Level 31 mmol/L (21-32) 28 mmol/L (21-32) Anion Gap 8 (6-14) 10 (6-14) Blood Urea Nitrogen 16 mg/dL (8-26) 18 mg/dL (8-26) Creatinine 1.2 mg/dL (0.7-1.3) 1.2 mg/dL (0.7-1.3) Estimated GFR (Cockcroft-Gault) 61.8 61.8 BUN/Creatinine Ratio 13 (6-20) Glucose Level 105 mg/dL (70-99) 90 mg/dL (70-99) Calcium Level 9.1 mg/dL (8.5-10.1) 8.7 mg/dL (8.5-10.1) Magnesium Level 1.7 mg/dL (1.8-2.4) 1.9 mg/dL (1.8-2.4) Total Bilirubin 0.3 mg/dL (0.2-1.0) Aspartate Amino Transf (AST/SGOT) 24 U/L (15-37) Alanine Aminotransferase (ALT/SGPT) 25 U/L (16-63) Alkaline Phosphatase 62 U/L (46-116) Creatine Kinase 68 U/L (39-308) Creatine Kinase MB (Mass) < 0.5 ng/mL (0.0-3.6) Creatine Kinase MB Relative Index % (0-4) Troponin I Quantitative < 0.017 ng/mL (0.000-0.055) < 0.017 ng/mL (0.000-0.055) < 0.017 ng/mL (0.000-0.055) MY-Peu-V-Type Natriuretic Peptide 80 pg/mL (0-124) Total Protein 8.4 g/dL (6.4-8.2) Albumin 3.7 g/dL (3.4-5.0) Albumin/Globulin Ratio 0.8 (1.0-1.7) Lipase 376 U/L (73-393) Thyroid Stimulating Hormone (TSH) 1.764 uIU/mL (0.358-3.74) Glucose (Fingerstick) 80 mg/dL (70-99) Test 09/19/19 12:16 09/19/19 12:25 Glucose (Fingerstick) 107 mg/dL (70-99) Erythrocyte Sedimentation Rate 59 (0-15) EWELINA HONG MD Sep 19, 2019 16:54
[2019-09-25] MEDS ORDERED: ERGOCALCIFEROL (VITAMIN D2) 50,000 UNIT CAPSULE. PO SCH (09:00)
== END 2019-09-19 14:20 | disposition home or self-care (01) | DRG 303 ==
LOC: ER 17:44 → 2 SOUTH 19:50
PROVIDERS: ADMIT Internal Medicine; ATTEND Internal Medicine
DX: I25.119 Atherosclerotic heart disease of native coronary artery with unspecified angina pectoris (principal); E11.22 Type 2 diabetes mellitus with diabetic chronic kidney disease; E11.40 Type 2 diabetes mellitus with diabetic neuropathy, unspecified; E66.9 Obesity, unspecified; E78.00 Pure hypercholesterolemia, unspecified; E78.5 Hyperlipidemia, unspecified; F01.50 Vascular dementia, unspecified severity, without behavioral disturbance, psychotic disturbance, mood disturbance, and anxiety; F17.210 Nicotine dependence, cigarettes, uncomplicated; I13.10 Hypertensive heart and chronic kidney disease without heart failure, with stage 1 through stage 4 chronic kidney disease, or unspecified chronic kidney disease; Z85.038 Personal history of other malignant neoplasm of large intestine; Z86.73 Personal history of transient ischemic attack (TIA), and cerebral infarction without residual deficits; I25.2 Old myocardial infarction; F32.9 Major depressive disorder, single episode, unspecified; J44.9 Chronic obstructive pulmonary disease, unspecified; K21.9 Gastro-esophageal reflux disease without esophagitis; N18.9 Chronic kidney disease, unspecified; Z82.49 Family history of ischemic heart disease and other diseases of the circulatory system; M19.90 Unspecified osteoarthritis, unspecified site; Z71.6 Tobacco abuse counseling
CPT/HCPCS: 36415; 70450; 71045; 80048; 80053; 82553; 82962; 83690; 83735; 83880; 84443; 84484; 85025; 85610; 85651; 85730; 93005; 96374; 99406; J1815; J3010; J3475; 99285-25; G0378

== ENCOUNTER 2019-10-15 23:50 | Emergency (ER) | payer OTHER ==
[~2019-10-15] VITALS: Ht 170.2 cm; Wt 115.2 kg
--- NOTE | 2019-10-16 00:03 | PHYS DOC ---
Past Medical History Past Medical History: A-Fib, CAD, Cancer, CVA, Depression, Diabetes-Type II, GERD, Hypertension, TIA Additional Past Medical Histor: colon cancer Past Surgical History: Cancer Surgery, Cholecystectomy, Other Additional Past Surgical Histo: eyes,ears,nose,hand ,DEFIB LEFT CHEST,COLON RESECTION Alcohol Use: None Drug Use: None Adult General Chief Complaint Chief Complaint: HYPERTENSION HPI HPI 59-year-old male presents to the emergency department with complaints of elevated blood sugar, elevated pressure. Patient was seen recently his primary care physician's office on Thursday prescribed new medication HCTZ. Patient states his blood pressures been ranging 180/96 to 200s over 103. Patient is well describes blood sugars reading high. He called the nurse line and they referred him to the emergency department. Patient denies any chest pain, headache, visual change, nausea, vomiting, abdominal pain. Review of Systems Review of Systems Constitutional: Denies fever or chills [] Eyes: Denies change in visual acuity, redness, or eye pain [] HENT: Denies nasal congestion or sore throat [] Respiratory: Denies cough or shortness of breath [] Cardiovascular: No additional information not addressed in HPI [] GI: Denies abdominal pain, nausea, vomiting, bloody stools or diarrhea [] Neurologic: Denies headache, focal weakness or sensory changes [] All other systems were reviewed and found to be within normal limits, except as documented in this note. Current Medications Current Medications Current Medications Medications (Trade) Dose Ordered Sig/Viviana Start Time Stop Time Status Last Admin Dose Admin Insulin Human Lispro (HumaLOG) 10 units 1X ONCE 10/16/19 02:00 10/16/19 02:01 DC Insulin Human Regular (HumuLIN R VIAL) 10 unit 1X ONCE 10/16/19 01:15 10/16/19 01:30 DC 10/16/19 00:37 10 UNIT Sodium Chloride 1,000 ml @ 1,000 mls/hr Q1H 10/16/19 00:30 10/16/19 01:29 DC 10/16/19 00:37 1,000 MLS/HR Allergies Allergies Allergies Coded Allergies Type Severity Reaction Last Updated Verified Penicillins Allergy Intermediate 11/14/17 Yes codeine Allergy Intermediate 08/01/18 Yes Physical Exam Physical Exam Constitutional: Well developed, well nourished, no acute distress, non-toxic appearance. [] HENT: Normocephalic, atraumatic, bilateral external ears normal, oropharynx moist, no oral exudates, nose normal. [] Eyes: PERRLA, EOMI, conjunctiva normal, no discharge. [] Cardiovascular:Heart rate regular rhythm, no murmur [] Lungs & Thorax: Bilateral breath sounds clear to auscultation [] Abdomen: Bowel sounds normal, soft, no tenderness, no masses, no pulsatile masses. [] Skin: Warm, dry, no erythema, no rash. [] Back: No tenderness, no CVA tenderness. [] Extremities: No tenderness, trace edema. [] Neurologic: Alert and oriented X 3, no focal deficits noted. [] Psychologic: Affect normal, judgement normal, mood normal. [] Current Patient Data Vital Signs Vital Signs Date Time Temp Pulse Resp B/P (MAP) Pulse Ox O2 Delivery O2 Flow Rate FiO2 10/16/19 00:55 90 19 95 10/15/19 23:55 97.9 201/103 (135) Room Air 97.9 Lab Values Laboratory Tests Test 10/16/19 00:29 10/16/19 01:45 10/16/19 01:47 White Blood Count 11.2 x10^3/uL (4.0-11.0) H Red Blood Count 4.58 x10^6/uL (4.30-5.70) Hemoglobin 14.7 g/dL (13.0-17.5) Hematocrit 43.0 % (39.0-53.0) Mean Corpuscular Volume 94 fL (79-100) Mean Corpuscular Hemoglobin 32 pg (25-35) Mean Corpuscular Hemoglobin Concent 34 g/dL (31-37) Red Cell Distribution Width 13.8 % (11.5-14.5) Platelet Count 206 x10^3/uL (140-400) Neutrophils (%) (Auto) 66 % (31-73) Lymphocytes (%) (Auto) 22 % (24-48) L Monocytes (%) (Auto) 9 % (0-9) Eosinophils (%) (Auto) 1 % (0-3) Basophils (%) (Auto) 2 % (0-3) Neutrophils # (Auto) 7.4 x10^3/uL (1.8-7.7) Lymphocytes # (Auto) 2.5 x10^3/uL (1.0-4.8) Monocytes # (Auto) 1.0 x10^3/uL (0.0-1.1) Eosinophils # (Auto) 0.1 x10^3/uL (0.0-0.7) Basophils # (Auto) 0.2 x10^3/uL (0.0-0.2) Sodium Level 131 mmol/L (136-145) L Potassium Level 4.1 mmol/L (3.5-5.1) Chloride Level 93 mmol/L (98-107) L Carbon Dioxide Level 27 mmol/L (21-32) Anion Gap 11 (6-14) Blood Urea Nitrogen 21 mg/dL (8-26) Creatinine 1.6 mg/dL (0.7-1.3) H Estimated GFR (Cockcroft-Gault) 44.3 BUN/Creatinine Ratio 13 (6-20) Glucose Level 642 mg/dL (70-99) *H Calcium Level 9.6 mg/dL (8.5-10.1) Total Bilirubin 0.4 mg/dL (0.2-1.0) Aspartate Amino Transferase (AST) 18 U/L (15-37) Alanine Aminotransferase (ALT) 18 U/L (16-63) Alkaline Phosphatase 80 U/L (46-116) Total Protein 8.3 g/dL (6.4-8.2) H Albumin 3.4 g/dL (3.4-5.0) Albumin/Globulin Ratio 0.7 (1.0-1.7) L Glucose (Fingerstick) 519 mg/dL (70-99) *H Urine Collection Type Unknown Urine Color Yellow Urine Clarity Clear Urine pH 5.0 Urine Specific [place] 1.025 Urine Protein 100 mg/dL (NEG-TRACE) Urine Glucose (UA) >=1000 mg/dL (NEG) Urine Ketones (Stick) Negative mg/dL (NEG) Urine Blood Small (NEG) Urine Nitrite Negative (NEG) Urine Bilirubin Negative (NEG) Urine Urobilinogen Dipstick 0.2 mg/dL (0.2 mg/dL) Urine Leukocyte Esterase Negative (NEG) Urine RBC Occ /HPF (0-2) Urine WBC 1-4 /HPF (0-4) Urine Squamous Epithelial Cells Few /LPF Urine Bacteria Few /HPF (0-FEW) Laboratory Tests 10/16/19 00:29 Laboratory Tests 10/16/19 00:29 EKG EKG EKG reviewed, normal sinus rhythm, normal axis, heart rate 97, normal EKG, no STEMI interpretation time 00 40[] Radiology/Procedures Radiology/Procedures [] Course & Med Decision Making Course & Med Decision Making Pertinent Labs and Imaging studies reviewed. (See chart for details) []59-year-old male presents to the emergency department with complaints of elevated blood sugar, elevated pressure. Patient was seen recently his primary care physician's office on Thursday prescribed new medication HCTZ. Patient states his blood pressures been ranging 180/96 to 200s over 103. Patient is well describes blood sugars reading high. He called the nurse line and they referred him to the emergency department. Patient denies any chest pain, headache, visual change, nausea, vomiting, abdominal pain. Labs reviewed BS 642 - IVF 1 liter, 10 units sq Reassessment of BS - 518 will give 10 units sq Will plan reassessment, if patient's BS < 500 Recommend following up with PCP for insulin changes, consider SSI Patient urinated on the floor and was told inappropriate by the nursing staff - patient then stated he wanted to leave Patient stated he did not want the subsequent dose of insulin and asks to leave AMA papers signed by patient Abbi Disclaimer Abbi Disclaimer This electronic medical record was generated, in whole or in part, using a voice recognition dictation system. Departure Departure Impression: Primary Impression: Essential hypertension Additional Impression: Hyperglycemia Disposition: 01 HOME, SELF-CARE Condition: IMPROVED Referrals: KATHRINE CARRANZA MD (PCP) Patient Instructions: Hyperglycemia, [id number], Hypertension Additional Instructions: Recommend follow up with PCP 3 - 5 days Return to the ER with worsening symptoms, intractable pain, fever, altered mental status Tylenol/Motrin as needed for pain Discussed labs with patient AMA form signed per patient Problem Qualifiers LEROY MUHAMMAD MD Oct 16, 2019 00:02
[2019-10-16] MEDS ORDERED: IV NORMAL SALINE 1000ML BAG 1,000 ML IV SCH (00:30)
[2019-10-16] MEDS ORDERED: INSULIN REGULAR 100 UNIT/ML 3ML VIAL. IV ONE (00:30)
[2019-10-16 00:38] LABS: BASO # 0.2 x10^3/uL (0.0-0.2); BASO % 2 % (0-3); EOS # 0.1 x10^3/uL (0.0-0.7); EOS % 1 % (0-3); HEMOGLOBIN 14.7 g/dL (13.0-17.5); LYMPH # 2.5 x10^3/uL (1.0-4.8); LYMPH % 22 % (24-48); MEAN CORPUSCULAR HEMOGLOBIN 32 pg (25-35); MEAN CORPUSCULAR HGB CONC 34 g/dL (31-37); MEAN CORPUSCULAR VOLUME 94 fL (79-100); MONO % 9 % (0-9); NEUT # 7.4 x10^3/uL (1.8-7.7); NEUT % 66 % (31-73); PLATELET COUNT 206 x10^3/uL (140-400); RED BLOOD COUNT 4.58 x10^6/uL (4.30-5.70); RED CELL DISTRIBUTION WIDTH 13.8 % (11.5-14.5); WHITE BLOOD COUNT 11.2 x10^3/uL (4.0-11.0)
[2019-10-16 01:01] LABS: ALBUMIN 3.4 g/dL (3.4-5.0); ALBUMIN/GLOBULIN RATIO 0.7 (1.0-1.7); CALCIUM 9.6 mg/dL (8.5-10.1); CREATININE 1.6 mg/dL (0.7-1.3); GFR 44.3; POTASSIUM 4.1 mmol/L (3.5-5.1); TOTAL BILIRUBIN 0.4 mg/dL (0.2-1.0); TOTAL PROTEIN 8.3 g/dL (6.4-8.2)
[2019-10-16] MEDS ORDERED: INSULIN REGULAR 100 UNIT/ML 3ML VIAL. SQ ONE (01:15)
[2019-10-16 01:54] LABS: BILIRUBIN,URINE NEGATIVE (NEG); CLARITY,URINE CLEAR; COLOR,URINE YELLOW; NITRITE,URINE NEGATIVE (NEG); PROTEIN,URINE 100 mg/dL (NEG-TRACE); UROBILINOGEN,URINE 0.2 mg/dL (0.2 mg/dL)
[2019-10-16] MEDS ORDERED: INSULIN LISPRO 300 UNITS/3 ML VIAL. SQ ONE (02:00)
[2019-10-16 02:05] LABS: BACTERIA,URINE FEW /HPF (0-FEW); RBC,URINE OCC /HPF (0-2); SQUAMOUS EPITHELIAL CELL,UR FEW /LPF
[2019-10-16 02:29] VITALS: BP 138/69
--- NOTE | 2019-10-17 07:03 | EKG ---
[facility] [address] [place] [address] Test Date: 2019-10-16 Test Time: 00:40:36 Pat Name: JORGE KINGSLEY Department: Room: Gender: M [employer] Professional: : 1960 Requested By: LEROY MUHAMMAD Order Number: [id number] Reading MD: Felix Jackson MD Measurements Intervals [place] Rate: 97 P: 26 [place]: 172 QRS: 51 QRSD: 78 T: 51 QT: 326 QTc: 417 Interpretive Statements SINUS RHYTHM Electronically Signed On 10-18-2019 11:09:46 LOADER MACHINE by Felix Jackson MD
== END 2019-10-16 02:15 | disposition home or self-care (01) ==
LOC: ER 23:50
DX: I10 Essential (primary) hypertension (principal); E11.65 Type 2 diabetes mellitus with hyperglycemia; I48.91 Unspecified atrial fibrillation; K21.9 Gastro-esophageal reflux disease without esophagitis; E11.9 Type 2 diabetes mellitus without complications; I25.10 Atherosclerotic heart disease of native coronary artery without angina pectoris; Z86.73 Personal history of transient ischemic attack (TIA), and cerebral infarction without residual deficits; Z90.49 Acquired absence of other specified parts of digestive tract; Z88.0 Allergy status to penicillin; Z88.5 Allergy status to narcotic agent
CPT/HCPCS: 36415; 80053; 81001; 82962; 85025; 93005; 96360; 96372; 99285; J1815; J7030

== ENCOUNTER 2019-11-18 07:25 | Outpatient (CLI) | payer OTHER ==
[2019-11-18] VITALS (9 sets, daily range): BP systolic 154–178; BP diastolic 57–99
[~2019-11-18] VITALS: Ht 170.2 cm; Wt 117.5 kg
[2019-11-18] MEDS ORDERED: LIDOCAINE 1% PF 2 ML VIAL. ONE (07:50)
[2019-11-18] MEDS ORDERED: IODIXANOL 320 MG/ML 100 ML VIAL. ONE (07:51)
[2019-11-18 09:00] LABS: HEMATOCRIT 41.9 % (39.0-53.0); HEMOGLOBIN 14.2 g/dL (13.0-17.5); RED BLOOD COUNT 4.61 x10^6/uL (4.30-5.70); RED CELL DISTRIBUTION WIDTH 13.8 % (11.5-14.5); WHITE BLOOD COUNT 7.2 x10^3/uL (4.0-11.0)
[2019-11-18 09:06] LABS: CALCIUM 9.1 mg/dL (8.5-10.1); CREATININE 1.1 mg/dL (0.7-1.3); GFR 68.3
[2019-11-18 09:15] LABS: PROTHROMBIN TIME PATIENT 13.3 SEC (11.7-14.0)
[2019-11-18] MEDS ORDERED: ASPI81TA59 PO (09:18)
[2019-11-18] MEDS ORDERED: VERAPAMIL 5 MG/2 ML VIAL. ONE (10:03)
[2019-11-18] MEDS ORDERED: HEPARIN for IV BOLUS 10,000 UNIT/10 ML VIAL. ONE (10:03)
[2019-11-18] MEDS ORDERED: MIDAZOLAM HCL/PF 2 MG/2 ML VIAL. ONE ×2 (10:03→10:32)
[2019-11-18] MEDS ORDERED: fentaNYL PF VIAL 100 MCG/2 ML VIAL ONE (10:03)
[2019-11-18] MEDS ORDERED: NITROGLYCERIN 200 MCG/2 ML SYRINGE FOR CATH/VASC LAB. ONE (10:04)
[2019-11-18] MEDS ORDERED: NITROGLYCERIN 200 MCG/2 ML SYRINGE FOR CATH/VASC LAB. IART ONE (10:15)
[2019-11-18] MEDS ORDERED: VERAPAMIL 5 MG/2 ML VIAL. IART ONE (10:15)
[2019-11-18] MEDS ORDERED: HEPARIN for IV BOLUS 10,000 UNIT/10 ML VIAL. IART ONE (10:15)
[2019-11-18] MEDS ORDERED: LIDOCAINE 1% PF 2 ML VIAL. INJ ONE (10:15)
[2019-11-18] MEDS ORDERED: MIDAZOLAM HCL/PF 2 MG/2 ML VIAL. IV ONE (10:15)
[2019-11-18] MEDS ORDERED: fentaNYL PF VIAL 100 MCG/2 ML VIAL IV ONE (10:15)
[2019-11-18] MEDS ORDERED: IODIXANOL 320 MG/ML 100 ML VIAL. IART ONE (10:15)
[2019-11-18] MEDS ORDERED: CONTRAST GIVEN. MC PRN (10:30)
[2019-11-18] MEDS ORDERED: IV 1/2 NORMAL SALINE 1,000 ML IV SCH (11:07)
--- NOTE | 2019-11-18 11:07 | PDOC ---
MODERATE SEDATION ASSESSMENT RISKS/ALTERNATIVES Risks/Alternatives Risks and alternatives of this type of sedation and procedure discussed with: RISK/ALTERNATIVES: Patient H & P ON CHART H & P H & P on chart and reviewed for co-morbid conditions and appropriate labs. H&P ON CHART: Yes STATUS PREG STATUS ASSESSED: N/A MEDS/ALLERGIES REVIEWED Meds/Allergies Reviewed Medications and Allergies including time and route of recently administered narcotics and sedatives. MEDS/ALLERGIES REVIEWED: Yes ASA RATING ASA RATING: II AIRWAY ASSESSMENT Airway Assessment Airway patency, oral function limitations, presence of caps, crowns, dentures, partials, and ability to extend neck assessed. AIRWAY ASSESSMENT: Yes MALLAMPATI SCORE MALLAMPATI SCORE: II PRE-SEDATION ASSESSMENT PRE-SEDATION ASSESSMENT: Yes LESLYE SHOOK MD Nov 18, 2019 11:07
[2019-11-18] MEDS ORDERED: NITROGLYCERIN SUBLINGUAL 0.4 MG BOTTLE OF 25. SL PRN (11:15)
--- NOTE | 2019-11-18 11:36 | CARD ---
MR#: [id number] Date of Study: 11/18/2019 Ordering Physician: LESLYE SHOOK, Referring Physician: LESLYE SHOOK Tech: MITCHEL GONZALEZ RTR APPROVED REPORT Technologist: MITCHEL GONZALEZ RTR Nurse: Lorena Lopes RN Procedure(s) performed: Left heart catheterization, selective coronary angiography and left ventricul ography via right transradial approach MODERATE SEDATION TIME: 20 MINUTES FLUORO TIME: 4.8 MIN DOSE: 55.2 GYCM2 CONTRAST: 97CC VISI INDICATION The indication(s) include : unstable angina . [facility] Clinical Frailty Scale [facility] Clinical Frailty Scale: Moderately Frail Heart Failure Heart Failure: No PROCEDURE NARRATIVE After explaining the risks, benefits and alternative options, informed consent was obtained from grant ent. Patient was brought to the cardiac Trestle [employer]ic and right wrist was prepped and draped in the usual fashion after confirming a positive modified Maurisio's test. Arterial access was obtained in the [facility] t radial artery and a 6 Kinyarwanda sheath was inserted. 6 Kinyarwanda Naveed catheter was used to perform chrissy ective angiography of the left and right coronary arteries. 6 Kinyarwanda pigtail catheter was used to pe rform left ventriculography. Patient tolerated the procedure well. Hemostasis was achieved using TR band. There were no immediate complications. The following findings were noted. FINDINGS 1. Hemodynamics: Left ventricular end-diastolic pressure of 14 mmHg. No pullback gradient across th e aortic valve. 2. Left ventriculography: Normal left ventricle systolic function with ejection fraction estimated at 60%. No significant mitral regurgitation seen. 3. Coronary angiography: a. The left main coronary artery arose from the left sinus of Valsalva, gave rise to the left anteri or descending and left circumflex arteries and did not show any significant stenosis. b. The left anterior descending artery did not show any significant stenosis. c. The left circumflex artery did not show any significant stenosis. d. The right coronary artery was a dominant vessel arising from the right sinus of Valsalva that did not show any significant stenosis. Conclusion 1. No significant coronary artery disease 2. Normal left ventricle systolic function with ejection fraction estimated at 60%. Signed by : Leslye Shook, Electronically Approved : 11/18/2019 11:36:27
--- NOTE | 2019-11-18 13:41 | NUR ---
Discharge Note: Discharge instructions and discharge home medications reviewed with Patient and a copy given. All questions have been answered and understanding verbalized. The following instructions and handouts were given on moderate sedation and radial site care post cath. Discontinued lines PIV. Patient discharged to home with self care accompanied by family.
== END 2019-11-18 14:10 | disposition home or self-care (01) ==
LOC: CCL 07:25
PROVIDERS: ATTEND Internal Medicine Cardiovascular Disease
DX: I20.0 Unstable angina (principal)
CPT/HCPCS: 36415; 80048; 85027; 85610; 93458; 99152; C1769; C1892; J1644; J2250; J3010; J3490; Q9967

== ENCOUNTER 2020-05-07 15:44 | Emergency (ER) | payer OTHER ==
[~2020-05-07] VITALS: Ht 170.2 cm; Wt 120.0 kg
[~2020-05-07 15:44] MED LIST changes: +SENN-182 PO; -SENN-80 PO
[2020-05-07] MEDS ORDERED: IV NORMAL SALINE 1000ML BAG 1,000 ML IV ONE (16:30)
--- NOTE | 2020-05-07 16:39 | PHYS DOC ---
Past Medical History Past Medical History: A-Fib, CAD, Cancer, CVA, Depression, Diabetes-Type II, GERD, Hypertension, TIA Additional Past Medical Histor: colon cancer Past Surgical History: Cancer Surgery, Cholecystectomy, Other Additional Past Surgical Histo: eyes,ears,nose,hand ,DEFIB LEFT CHEST,COLON RESECTION Smoking Status: Current Every Day Smoker Alcohol Use: None Drug Use: None General Adult EDM: Chief Complaint: HYPERGLYCEMIA HPI: HPI: Patient is a 60 year old male who presents with 2 weeks of diarrhea and abdominal cramping. He states he has been living out of a motel that does not have a fridge and it and cannot keep his insulin cold. States he has not taken his insulin for the last 4 days. He states that he went into the his primary care's office today and they took a stool sample and his glucose was very high. He states that he just recently got a steroid shot in his spine of which he thinks is why his sugar is high. He rates his pain a 2 out of 10. Patient states everything he eats goes right through him and he has diarrhea. He denies being on any previous antibiotics. When doctor's office staff call to give report they state that he has been incontinent of stool and was covered in feces upon arrival. Patient has a history of diabetes, neuropathy, TIA, suicidal ideation, hypertension, CAD, high cholesterol, colon cancer with resection, CVA, A. fib and every day smoker. Review of Systems: Review of Systems: GI: generalized abdominal pain, denies nausea, vomiting, bloody stools. + diarrhea. [] Heart Score: Risk Factors: Risk Factors: DM, Current or recent (<one month) smoker, HTN, HLP, family history of CAD, obesity. Risk Scores: Score 0 - 3: 2.5% MACE over next 6 weeks - Discharge Home Score 4 - 6: 20.3% MACE over next 6 weeks - Admit for Clinical Observation Score 7 - 10: 72.7% MACE over next 6 weeks - Early Invasive Strategies Current Medications: Current Medications Medications (Trade) Dose Ordered Sig/Viviana Start Time Stop Time Status Last Admin Dose Admin Sodium Chloride 1,000 ml @ 1,000 mls/hr 1X ONCE 05/07/20 16:30 05/07/20 17:29 Allergies: Allergies: Allergies Coded Allergies Type Severity Reaction Last Updated Verified Penicillins Allergy Intermediate 11/14/17 Yes codeine Allergy Intermediate 08/01/18 Yes Physical Exam: PE: Constitutional: Well developed, well nourished, no acute distress, non-toxic appearance. [] HENT: Normocephalic, atraumatic, bilateral external ears normal, oropharynx moist, no oral exudates, nose normal. [] Eyes: PERRLA, EOMI, conjunctiva normal, no discharge. [] Neck: Normal range of motion, no tenderness, supple, no stridor. [] Cardiovascular:Heart rate regular rhythm, no murmur [] Lungs & Thorax: Bilateral breath sounds clear to auscultation [] Abdomen: Bowel sounds normal, distended and tight, no tenderness, no masses, no pulsatile masses. [] Skin: Warm, dry, no erythema, no rash. [] Back: No tenderness, no CVA tenderness. [] Extremities: No tenderness, no cyanosis, no clubbing, ROM intact, no edema. [] Neurologic: Alert and oriented X 3, normal motor function, normal sensory function, no focal deficits noted. [] Psychologic: Affect normal, judgement normal, mood normal. [] Current Patient Data: Vital Signs: Vital Signs Date Time Temp Pulse Resp B/P (MAP) Pulse Ox O2 Delivery O2 Flow Rate FiO2 05/07/20 16:07 97.7 110 14 165/79 (107) 96 Room Air 97.7 EKG: EKG: [] Radiology/Procedures: Radiology/Procedures: [] Impression: [facility] [address] [place], [place] [id number] IMAGING REPORT Signed PATIENT: JORGE KINGSLEY DACCOUNT: [id number] : 1960 LOCATION: ER AGE: 60 SEX: M EXAM STATUS: REG ER ORD. PHYSICIAN: CARLY BROWNE APRN REASON: diarrhea PROCEDURE: CT ABD PELV W/ IV CONTRST ONLY EXAM: CT Abdomen and Pelvis with IV contrast CLINICAL HISTORY: Diarrhea COMPARISON: 12/07/2017 TECHNIQUE: Helical CT of the abdomen and pelvis was performed following the administration of IV contrast. Axial, coronal and sagittal reformatted images were generated. ---PQRS compliance statement - One or more of the following individualized dose reduction techniques were utilized for this study: 1. Automated exposure control 2. Adjustment of the mA and/or kV according to patient size 3. Use of iterative reconstruction technique--- FINDINGS: Lower chest: Coronary calcifications are seen. Lung bases are clear. Abdomen and pelvis: Liver and biliary system: Portal and hepatic hypoattenuation likely fatty liver. Apparent prominence of the left hepatic lobe, nonspecific. Hepatic contour is smooth. Accounting for postcholecystectomy change, no biliary ductal dilatation. Spleen: Unremarkable Pancreas: Unremarkable Adrenal glands: Unremarkable Kidneys: Symmetric nephrograms. 9 mm left interpolar hypodense lesion measures fluid density, likely simple renal cyst. No hydronephrosis or hydroureter. Lymph nodes/retroperitoneum: No abdominal or pelvic lymphadenopathy. Vessels: Aortic calcifications are seen. Bowel/Peritoneal cavity: The colon is near completely decompressed, featureless. No significant pericolonic infiltration is seen however there is prominence of the mesenteric vessels. Small bowel is predominantly collapsed as well with no abnormal bowel dilatation. No abdominal or pelvic ascites. Abdominal wall: Small fat-containing periumbilical hernia is seen. Bladder: Bladder is decompressed. Bones: Symphysis pubis degenerative changes are seen. Degenerative changes of the lower lumbar spine are noted. No aggressive osseous lesion is seen. IMPRESSION: 1. The colon is near completely decompressed and appears somewhat featureless with prominent mesenteric vessels. These are nonspecific findings but may be seen with chronic inflammatory bowel disease. No significant pericolonic inflammatory change to suggest colitis.. 2. No bowel obstruction. 3. Small fat-containing periumbilical hernia is seen. 4. Hepatic hypoattenuation likely fatty liver. Electronically signed by: Salvatore Daurte MD (05/07/2020 5:41 PM) [facility] DICTATED and SIGNED BY: SALVATORE DUARTE MD DATE: 05/07/201740 Course & Med Decision Making: Course & Med Decision Making Pertinent Labs and Imaging studies reviewed. (See chart for details) Patient reports that his abdomen is more distended than usual. Abdomen is tight and rounded and nontender. No extremity edema. Skin pink warm and dry. Alert and oriented. Speaks in full clear sentences. Ambulatory with a steady gait. Afebrile. Patient is hemodynamically stable. He is given 10 units of insulin and his glucose is down to 265. We will give patient a reusable ice pack here to keep his insulin cold. CT abdomen pelvis shows inflammatory bowel disease. Patient to follow-up with his primary care provider. [] Abbi Disclaimer: Abbi Disclaimer: This electronic medical record was generated, in whole or in part, using a voice recognition dictation system. Departure Departure Impression: Primary Impression: Diarrhea Qualified Codes: R19.7 - Diarrhea, unspecified Additional Impression: Hyperglycemia Disposition: HOME, SELF-CARE Condition: STABLE Referrals: KATHRINE CARRANZA MD (PCP) Patient Instructions: Diarrhea, Ifiu-[id number], Hyperglycemia, Xzkh-jo-Oskp, Irritable Bowel Syndrome-Brief Additional Instructions: Follow-up with your primary care provider soon as possible. Use a reusable ice bag to put your insulin and keep it cold. Take your insulin as you are supposed to. Justicifation of Admission Dx: Justifications for Admission: Justification of Admission Dx: N/A CARLY BROWNE TRUCK DRIVER SUPERVISOR May 07, 2020 16:39
[2020-05-07 16:54] LABS: CREATININE 1.5 mg/dL (0.7-1.3); GFR 47.6
[2020-05-07 16:56] LABS: BASO # 0.2 x10^3/uL (0.0-0.2); BASO % 1 % (0-3); EOS # 0.1 x10^3/uL (0.0-0.7); EOS % 1 % (0-3); HEMATOCRIT 43.1 % (39.0-53.0); HEMOGLOBIN 15.1 g/dL (13.0-17.5); LYMPH # 2.2 x10^3/uL (1.0-4.8); LYMPH % 17 % (24-48); MEAN CORPUSCULAR HEMOGLOBIN 32 pg (25-35); MEAN CORPUSCULAR HGB CONC 35 g/dL (31-37); MEAN CORPUSCULAR VOLUME 93 fL (79-100); MONO # 0.8 x10^3/uL (0.0-1.1); MONO % 6 % (0-9); NEUT # 9.8 x10^3/uL (1.8-7.7); NEUT % 75 % (31-73); PLATELET COUNT 179 x10^3/uL (140-400); RED BLOOD COUNT 4.66 x10^6/uL (4.30-5.70); RED CELL DISTRIBUTION WIDTH 13.3 % (11.5-14.5); WHITE BLOOD COUNT 13.1 x10^3/uL (4.0-11.0)
[2020-05-07 16:59] LABS: ALBUMIN 3.3 g/dL (3.4-5.0); ALBUMIN/GLOBULIN RATIO 0.8 (1.0-1.7); TOTAL BILIRUBIN 0.6 mg/dL (0.2-1.0); TOTAL PROTEIN 7.5 g/dL (6.4-8.2)
[2020-05-07 17:00] LABS: PROTHROMBIN TIME PATIENT 13.5 SEC (11.7-14.0)
[2020-05-07] MEDS ORDERED: CONTRAST GIVEN. MC PRN (17:00)
[2020-05-07] MEDS ORDERED: IOHEXOL 300 MG/ML 100ML VIAL. IV ONE (17:00)
--- NOTE | 2020-05-07 17:43 | RAD ---
EXAM: CT Abdomen and Pelvis with IV contrast CLINICAL HISTORY: Diarrhea COMPARISON: 12/07/2017 TECHNIQUE: Helical CT of the abdomen and pelvis was performed following the administration of IV contrast. Axial, coronal and sagittal reformatted images were generated. ---PQRS compliance statement - One or more of the following individualized dose reduction techniques were utilized for this study: 1. Automated exposure control 2. Adjustment of the mA and/or kV according to patient size 3. Use of iterative reconstruction technique--- FINDINGS: Lower chest: Coronary calcifications are seen. Lung bases are clear. Abdomen and pelvis: Liver and biliary system: Portal and hepatic hypoattenuation likely fatty liver. Apparent prominence of the left hepatic lobe, nonspecific. Hepatic contour is smooth. Accounting for postcholecystectomy change, no biliary ductal dilatation. Spleen: Unremarkable Pancreas: Unremarkable Adrenal glands: Unremarkable Kidneys: Symmetric nephrograms. 9 mm left interpolar hypodense lesion measures fluid density, likely simple renal cyst. No hydronephrosis or hydroureter. Lymph nodes/retroperitoneum: No abdominal or pelvic lymphadenopathy. Vessels: Aortic calcifications are seen. Bowel/Peritoneal cavity: The colon is near completely decompressed, featureless. No significant pericolonic infiltration is seen however there is prominence of the mesenteric vessels. Small bowel is predominantly collapsed as well with no abnormal bowel dilatation. No abdominal or pelvic ascites. Abdominal wall: Small fat-containing periumbilical hernia is seen. Bladder: Bladder is decompressed. Bones: Symphysis pubis degenerative changes are seen. Degenerative changes of the lower lumbar spine are noted. No aggressive osseous lesion is seen. IMPRESSION: 1. The colon is near completely decompressed and appears somewhat featureless with prominent mesenteric vessels. These are nonspecific findings but may be seen with chronic inflammatory bowel disease. No significant pericolonic inflammatory change to suggest colitis.. 2. No bowel obstruction. 3. Small fat-containing periumbilical hernia is seen. 4. Hepatic hypoattenuation likely fatty liver. Electronically signed by: Salvatore Bernard MD (05/07/2020 5:41 PM) [facility]
[2020-05-07] MEDS ORDERED: INSULIN REGULAR 100 UNIT/ML 3ML VIAL. IV ONE (17:45)
[2020-05-07 19:52] VITALS: BP 169/72
== END 2020-05-07 19:49 | disposition home or self-care (01) ==
LOC: ER 15:44
DX: R19.7 Diarrhea, unspecified (principal); E11.65 Type 2 diabetes mellitus with hyperglycemia; R10.84 Generalized abdominal pain; I48.91 Unspecified atrial fibrillation; K21.9 Gastro-esophageal reflux disease without esophagitis; I10 Essential (primary) hypertension; F17.200 Nicotine dependence, unspecified, uncomplicated; I25.10 Atherosclerotic heart disease of native coronary artery without angina pectoris; Z86.73 Personal history of transient ischemic attack (TIA), and cerebral infarction without residual deficits; Z90.49 Acquired absence of other specified parts of digestive tract; Z88.0 Allergy status to penicillin; Z88.5 Allergy status to narcotic agent
CPT/HCPCS: 36415; 74177; 80053; 82010; 82962; 83690; 85025; 85610; 87493; 96361; 96374; 99285; J1815; J7030; Q9967

== ENCOUNTER 2020-05-16 21:17 | Emergency (ER) | payer OTHER ==
[~2020-05-16] VITALS: Ht 170.2 cm; Wt 115.0 kg
[2020-05-16 21:43] LABS: BASO % 0 % (0-3); EOS # 0.1 x10^3/uL (0.0-0.7); EOS % 1 % (0-3); HEMATOCRIT 41.2 % (39.0-53.0); HEMOGLOBIN 14.2 g/dL (13.0-17.5); LYMPH # 2.4 x10^3/uL (1.0-4.8); LYMPH % 22 % (24-48); MEAN CORPUSCULAR HEMOGLOBIN 33 pg (25-35); MEAN CORPUSCULAR HGB CONC 34 g/dL (31-37); MEAN CORPUSCULAR VOLUME 95 fL (79-100); MONO # 0.8 x10^3/uL (0.0-1.1); MONO % 7 % (0-9); NEUT # 7.8 x10^3/uL (1.8-7.7); NEUT % 70 % (31-73); PLATELET COUNT 167 x10^3/uL (140-400); RED BLOOD COUNT 4.33 x10^6/uL (4.30-5.70); RED CELL DISTRIBUTION WIDTH 13.7 % (11.5-14.5); WHITE BLOOD COUNT 11.1 x10^3/uL (4.0-11.0)
--- NOTE | 2020-05-16 21:55 | PHYS DOC ---
Past Medical History Past Medical History: A-Fib, CAD, Cancer, CVA, Depression, Diabetes-Type II, GERD, Hypertension, TIA Additional Past Medical Histor: colon cancer Past Surgical History: Cancer Surgery, Cholecystectomy, Other Additional Past Surgical Histo: eyes,ears,nose,hand ,DEFIB LEFT CHEST,COLON RESECTION Smoking Status: Current Every Day Smoker Alcohol Use: None Drug Use: None General Adult EDM: Chief Complaint: HYPERGLYCEMIA HPI: HPI: Patient is a 60-year-old male with past medical history hypertension hyperlipidemia diabetes presents with a chief complaint of left-sided chest pain. Patient states chest pain started around 8 AM this morning. Pain is located in his left chest and does not radiate. Pain is been constant since onset. He states he has associated shortness of breath. Patient states he has associated blurry vision and feels dizzy. Patient's fingerstick greater than 539. Patient is takes Lantus and Januvia and states he has been taking his normal doses as prescribed. Patient denies any associated nausea or vomiting. Patient states he has some mild abdominal discomfort associated with diarrhea x 2 weeks. On exam patient is alert and oriented x4. He is in no acute distress. No focal weakness appreciated. Patient's abdomen is soft without rebound or guarding. Patient's vital signs are stable on the monitor. EKG performed shows a normal sinus rhythm. Review of Systems: Review of Systems: Constitutional: Denies fever or chills. [] Eyes: Denies change in visual acuity. [] HENT: Denies nasal congestion or sore throat. [] Respiratory: Denies cough or shortness of breath. [] Cardiovascular: Denies chest pain or edema. [] GI: Denies abdominal pain, nausea, vomiting, bloody stools or diarrhea. [] : Denies dysuria. [] Musculoskeletal: Denies back pain or joint pain. [] Integument: Denies rash. [] Neurologic: Denies headache, focal weakness or sensory changes. [] Endocrine: Denies polyuria or polydipsia. [] Lymphatic: Denies swollen glands. [] Psychiatric: Denies depression or anxiety. [] Heart Score: HEART Score for Chest Pain: HEART Score for Chest Pain Response (Comments) Value History Slighlty/Non-Suspicious 0 ECG Normal 0 Age >45 - < 65 1 Risk Factors >3 Risk Factors or Hx CAD 2 Troponin < Normal Limit 0 Total 3 Risk Factors: Risk Factors: DM, Current or recent (<one month) smoker, HTN, HLP, family history of CAD, obesity. Risk Scores: Score 0 - 3: 2.5% MACE over next 6 weeks - Discharge Home Score 4 - 6: 20.3% MACE over next 6 weeks - Admit for Clinical Observation Score 7 - 10: 72.7% MACE over next 6 weeks - Early Invasive Strategies Allergies: Allergies: Allergies Coded Allergies Type Severity Reaction Last Updated Verified Penicillins Allergy Intermediate 11/14/17 Yes codeine Allergy Intermediate 08/01/18 Yes Physical Exam: PE: Constitutional: Well developed, well nourished, no acute distress, non-toxic appearance. [] HENT: Normocephalic, atraumatic, bilateral external ears normal, oropharynx moist, no oral exudates, nose normal. [] Eyes: PERRLA, EOMI, conjunctiva normal, no discharge. [] Neck: Normal range of motion, no tenderness, supple, no stridor. [] Cardiovascular:Heart rate regular rhythm, no murmur [] Lungs & Thorax: Bilateral breath sounds clear to auscultation [] Abdomen: Bowel sounds normal, soft, no tenderness, no masses, no pulsatile masses. [] Skin: Warm, dry, no erythema, no rash. [] Back: No tenderness, no CVA tenderness. [] Extremities: No tenderness, no cyanosis, no clubbing, ROM intact, no edema. [] Neurologic: Alert and oriented X 3, normal motor function, normal sensory function, no focal deficits noted. [] Psychologic: Affect normal, judgement normal, mood normal. [] Current Patient Data: Labs: Laboratory Tests Test 05/16/20 21:24 05/16/20 21:25 Glucose (Fingerstick) 539 mg/dL (70-99) *H White Blood Count 11.1 x10^3/uL (4.0-11.0) H Red Blood Count 4.33 x10^6/uL (4.30-5.70) Hemoglobin 14.2 g/dL (13.0-17.5) Hematocrit 41.2 % (39.0-53.0) Mean Corpuscular Volume 95 fL (79-100) Mean Corpuscular Hemoglobin 33 pg (25-35) Mean Corpuscular Hemoglobin Concent 34 g/dL (31-37) Red Cell Distribution Width 13.7 % (11.5-14.5) Platelet Count 167 x10^3/uL (140-400) Neutrophils (%) (Auto) 70 % (31-73) Lymphocytes (%) (Auto) 22 % (24-48) L Monocytes (%) (Auto) 7 % (0-9) Eosinophils (%) (Auto) 1 % (0-3) Basophils (%) (Auto) 0 % (0-3) Neutrophils # (Auto) 7.8 x10^3/uL (1.8-7.7) H Lymphocytes # (Auto) 2.4 x10^3/uL (1.0-4.8) Monocytes # (Auto) 0.8 x10^3/uL (0.0-1.1) Eosinophils # (Auto) 0.1 x10^3/uL (0.0-0.7) Basophils # (Auto) 0.0 x10^3/uL (0.0-0.2) Laboratory Tests 05/16/20 21:25 Vital Signs: Vital Signs Date Time Temp Pulse Resp B/P (MAP) Pulse Ox O2 Delivery O2 Flow Rate FiO2 05/16/20 21:18 98.3 96 20 188/90 (122) 95 Room Air 98.3 EKG: EKG: EKG time 20599 Heart rate 96 normal sinus rhythm no ST elevation no ST depression no acute AL [] Radiology/Procedures: Radiology/Procedures: [] Course & Med Decision Making: Course & Med Decision Making Pertinent Labs and Imaging studies reviewed. (See chart for details) [] Patient was evaluated for chief complaint. Work-up consisted of laboratory analysis radiologic imaging and EKG. Results reviewed and discussed with patient. Patient found to have blood glucose greater than 500. Patient was treated with normal saline and insulin. ABG within normal limits. EKG without acute ischemic changes troponin within normal limits. Dragon Disclaimer: Dragon Disclaimer: This electronic medical record was generated, in whole or in part, using a voice recognition dictation system. Departure Departure Impression: Primary Impression: Chest pain Additional Impression: Hyperglycemia Disposition: 01 HOME, SELF-CARE Condition: STABLE Referrals: KATHRINE CARRANZA MD (PCP) Justicifation of Admission Dx: Justifications for Admission: Justification of Admission Dx: N/A ASHLEY SHORT DO May 16, 2020 21:55
[2020-05-16 21:56] LABS: ALBUMIN 2.8 g/dL (3.4-5.0); ALBUMIN/GLOBULIN RATIO 0.7 (1.0-1.7); CREATININE 1.5 mg/dL (0.7-1.3); GFR 47.6; POTASSIUM 3.4 mmol/L (3.5-5.1); TOTAL BILIRUBIN 0.4 mg/dL (0.2-1.0); TOTAL PROTEIN 6.7 g/dL (6.4-8.2)
[2020-05-16 22:03] LABS: BILIRUBIN,URINE NEGATIVE (NEG); CLARITY,URINE CLEAR; COLOR,URINE YELLOW; NITRITE,URINE NEGATIVE (NEG); PH,URINE 5.5 (<5.0-8.0); PROTEIN,URINE 100 mg/dL (NEG-TRACE); UROBILINOGEN,URINE 0.2 mg/dL (0.2 mg/dL)
[2020-05-16 22:07] LABS: SQUAMOUS EPITHELIAL CELL,UR MOD /LPF
[2020-05-16 22:08] LABS: BACTERIA,URINE FEW /HPF (0-FEW); WBC,URINE 0 /HPF (0-4)
[2020-05-16 22:10] LABS: YEAST,URINE PRESENT /HPF
--- NOTE | 2020-05-16 22:18 | RAD ---
AP chest x-ray HISTORY: Chest pain. FINDINGS: Heart size normal. Mediastinal silhouette is normal. No pneumothorax. No pleural effusions. Prominent right cardiophrenic fat pad partially obscuring the right heart border is stable. No pulmonary opacities. Bones are unremarkable. IMPRESSION: No acute process. Stable exam. Electronically signed by: Mikhail Leroy MD (05/16/2020 10:15 PM) [facility]
[2020-05-16] MEDS ORDERED: ONDANSETRON PF 4 MG/2 ML VIAL. IV PRN (22:30)
[2020-05-16] MEDS ORDERED: IV NORMAL SALINE 1000ML BAG 1,000 ML IV ONE (22:30)
[2020-05-16] MEDS ORDERED: ASPIRIN CHEWABLE 81 MG TABLET. PO ONE (22:30)
[2020-05-16 22:44] LABS: BASE EXCESS ABG 1 mmol/L (-3-3); HCO3 ABG 27 mmol/L (21-28); PCO2 ABG 46 mmHg (35-46); PO2 ABG 67 mmHg (65-108); SAT O2 ABG 92 % (92-99)
[2020-05-16 22:45] LABS: FIO2 ABG 21
[2020-05-16] MEDS ORDERED: INSULIN,REGULAR 100 UNIT DRIP 100 ML IV ONE (23:00)
[2020-05-16 23:51] VITALS: BP 143/67
--- NOTE | 2020-05-17 05:57 | EKG ---
[facility] [address] [place] [id number] Test Date: 2020-05-16 Test Time: 21:37:00 Pat Name: JORGE KINGSLYE Department: Room: Gender: [employer] Server: Patricio : 1960 Requested By: ASHLEY SHORT Order Number: [id number] Reading MD: Measurements Intervals [place] Rate: 96 P: 18 SC: 188 QRS: 14 QRSD: 74 T: 34 QT: 334 QTc: 423 Interpretive Statements SINUS RHYTHM NORMAL ECG RI6.02 No previous ECG available for comparison
== END 2020-05-16 23:20 | disposition other institution (70) ==
LOC: ER 21:17 → UNDOADMIN 22:21 → ED HOLD 22:21 → ER 23:20 → 2 SOUTH 05-17 00:02 → ED HOLD 05-17 00:02 → UNDODISIN 05-17 01:00 → ER 05-17 01:00
DX: R07.89 Other chest pain (principal); R06.02 Shortness of breath; R42 Dizziness and giddiness; E11.65 Type 2 diabetes mellitus with hyperglycemia; I11.9 Hypertensive heart disease without heart failure; K21.9 Gastro-esophageal reflux disease without esophagitis; F32.9 Major depressive disorder, single episode, unspecified; I48.20 Chronic atrial fibrillation, unspecified; F17.200 Nicotine dependence, unspecified, uncomplicated; Z85.9 Personal history of malignant neoplasm, unspecified; Z86.73 Personal history of transient ischemic attack (TIA), and cerebral infarction without residual deficits; Z90.49 Acquired absence of other specified parts of digestive tract; Z98.890 Other specified postprocedural states; Z88.0 Allergy status to penicillin; Z88.5 Allergy status to narcotic agent
CPT/HCPCS: 36415; 36600; 71045; 80053; 81001; 82805; 82962; 84484; 85025; 93005; 96361; 96365; 99285; G0480; J1815; J7030

== ENCOUNTER 2020-05-17 18:22 | Inpatient (IN) | payer OTHER ==
[~2020-05-17] VITALS: Ht 170.2 cm; Wt 115.2 kg
[~2020-05-17 18:22] MED LIST changes: -OXYC-411 PO; +OXYC1TAB20 PO
--- NOTE | 2020-05-17 19:03 | PHYS DOC ---
Past Medical History Past Medical History: A-Fib, Arthritis, CAD, Cancer, CVA, Depression, Diabetes- Type II, GERD, Hypertension, TIA, Other Additional Past Medical Histor: colon cancer,CARDAIC ARREST X2,CHRONIC BACK PAIN Past Surgical History: Cancer Surgery, Cholecystectomy, Other Additional Past Surgical Histo: eyes,ears,nose,hand ,DEFIB LEFT CHEST,COLON RESECTION Smoking Status: Current Every Day Smoker Additional Information: 0.5 PPD Alcohol Use: None Drug Use: None General Adult EDM: Chief Complaint: NAUSEA/VOMITING/DIARRHA HPI: HPI: Patient is a 60 year old male who presents with was seen last night and admitted for hyperglycemia. He left AMA around 1:00 this morning after he felt better. States for the last 2 weeks has had mild abdominal discomfort and diarrhea of which he is on Loperamide for. CT from May 07 shows no acute findings. Patient states he still has blurred vision and dizziness with nausea and vomiting that has continued today. He states that he has chest pressure and feels like there is an elephant sitting on his chest. Patient states he is willing to stay and be admitted. He rates his overall discomfort at a 7 out of 10. For his diabetes patient takes Lantus and Januvia. Patient has a history of diabetes, A. fib, colon cancer, GERD, CVA, hypertension, TIA, cholecystectomy, defibrillator in the left chest, smoker. Review of Systems: Review of Systems: Constitutional: Denies fever or chills. [] Eyes: Denies change in visual acuity. [] HENT: Denies nasal congestion or sore throat. [] Respiratory: Denies cough or shortness of breath. [] Cardiovascular: +chest pain pressure or denies edema. [] GI: Denies abdominal pain.+ nausea, +vomiting, denies bloody stools. +diarrhea. [] : Denies dysuria. [] Musculoskeletal: Denies back pain or joint pain. [] Integument: Denies rash. [] Neurologic: Dizziness. Denies headache, focal weakness or sensory changes. [] Endocrine: Denies polyuria or polydipsia. [] Lymphatic: Denies swollen glands. [] Psychiatric: Denies depression or anxiety. [] Heart Score: HEART Score for Chest Pain: HEART Score for Chest Pain Response (Comments) Value History Moderately Suspicious 1 ECG Nonspecific Repolarizatio 1 Age >45 - < 65 1 Risk Factors >3 Risk Factors or Hx CAD 2 Troponin < Normal Limit 0 Total 5 Risk Factors: Risk Factors: DM, Current or recent (<one month) smoker, HTN, HLP, family history of CAD, obesity. Risk Scores: Score 0 - 3: 2.5% MACE over next 6 weeks - Discharge Home Score 4 - 6: 20.3% MACE over next 6 weeks - Admit for Clinical Observation Score 7 - 10: 72.7% MACE over next 6 weeks - Early Invasive Strategies Allergies: Allergies: Allergies Coded Allergies Type Severity Reaction Last Updated Verified Penicillins Allergy Intermediate 11/14/17 Yes codeine Allergy Intermediate 08/01/18 Yes Physical Exam: PE: Constitutional: Well developed, well nourished, no acute distress, non-toxic appearance. [] HENT: Normocephalic, atraumatic, bilateral external ears normal, oropharynx moist, no oral exudates, nose normal. [] Eyes: PERRLA, EOMI, conjunctiva normal, no discharge. [] Neck: Normal range of motion, no tenderness, supple, no stridor. [] Cardiovascular:Heart rate regular rhythm, no murmur [] Lungs & Thorax: Bilateral breath sounds clear to auscultation [] Abdomen: Bowel sounds normal, soft, no tenderness, no masses, no pulsatile masses. [] Skin: Warm, dry, no erythema, no rash. [] Back: No tenderness, no CVA tenderness. [] Extremities: No tenderness, no cyanosis, no clubbing, ROM intact, no edema. [] Neurologic: Alert and oriented X 3, normal motor function, normal sensory function, no focal deficits noted. [] Psychologic: Affect normal, judgement normal, mood normal. [] Current Patient Data: Labs: Laboratory Tests Test 05/17/20 18:41 Glucose (Fingerstick) 276 mg/dL (70-99) H Vital Signs: Vital Signs Date Time Temp Pulse Resp B/P (MAP) Pulse Ox O2 Delivery O2 Flow Rate FiO2 05/17/20 18:27 98.6 86 20 197/106 (136) 97 Room Air 98.6 EKG: EK and read by Dr. Grant is normal sinus rhythm. No STEMI. [] Radiology/Procedures: Radiology/Procedures: [] Impression: [facility] [address] [place] [address] IMAGING REPORT Signed PATIENT: JORGE KINGSLEYCOUNT: [id number] : 1960 LOCATION: ER AGE: 60 SEX: M EXAM STATUS: REG ER ORD. PHYSICIAN: CARLY BROWNE APRN REASON: headache, dizzy PROCEDURE: CT HEAD WO CONTRAST EXAM: CT HEAD WITHOUT CONTRAST. HISTORY: Headache and dizziness. TECHNIQUE: Computed tomography of the head was performed without intravenous contrast. One or more of the following individualized dose reduction techniques were utilized for this examination: 1. Automated exposure control. 2. Adjustment of the mA and/or kV according to patient size. 3. Use of iterative reconstruction technique. COMPARISON: 09/18/2019. FINDINGS: There is no intracranial hemorrhage. Chronic lacunar infarction noted bilaterally in the basal ganglia. There is mild chronic microangiopathic white matter change elsewhere. The ventricles are normal in size and position. The visualized paranasal sinuses appear clear. There are changes of bilateral cataract surgery. The temporal bones are unremarkable. The calvarium reveals no suspicious lesions. There are atherosclerotic calcifications of the internal carotid and vertebral arteries. IMPRESSION: 1. No acute intracranial findings. 2. Chronic bilateral basal ganglia lacunar infarct. Electronically signed by: Tono Suh MD (05/17/2020 7:41 PM) [facility] DICTATED and SIGNED BY: SHWETA SUH MD DATE: 05/17/201940 [facility] [address] [place] [address] IMAGING REPORT Signed PATIENT: JORGE KINGSLEY DACCOUNT: [id number] : 1960 LOCATION: ER AGE: 60 SEX: M EXAM STATUS: REG ER ORD. PHYSICIAN: CARLY BROWNE APRN REASON: chest pressure PROCEDURE: PORTABLE CHEST 1V AP chest x-ray HISTORY: Chest pain. COMPARISON: Chest x-ray May 16, 2020. FINDINGS: Heart size normal. Prominent epicardial fat-pad this stable. No pneumothorax, pulmonary opacities or pleural effusions. The bones are unremarkable. IMPRESSION: No acute process. Electronically signed by: Jesenia Leroy MD (05/17/2020 7:46 PM) [facility] DICTATED and SIGNED BY: JESENIA LEROY MD DATE: 05/17/201945 Course & Med Decision Making: Course & Med Decision Making Pertinent Labs and Imaging studies reviewed. (See chart for details) Alert and oriented. Speaks in full clear sentences. Ambulatory with a steady gait. No extremity edema. Lungs are clear in upper lobes with diminished in lower lobes. PERRLA. Denies anything making the chest pressure or his dizziness better or worse. He denies shortness of air at this time, numbness or tingling, LOC, abdominal pain, dysuria, fever, cough, focal weakness. He states that he has uncontrolled diarrhea in urinary incontinence. Abdomen is soft and nontender. Patient is moving all extremities equally with equal strengths. I spoke to Dr. Montalvo who admitted the patient last night and told him that the patient was back and would like to be admitted. Dr. Montalvo states that he has fired the patient today but the patient does not know that yet. Patient to be admitted to Dr. Bajwa. [] Abbi Disclaimer: Abbi Disclaimer: This electronic medical record was generated, in whole or in part, using a voice recognition dictation system. Departure Departure Impression: Primary Impression: Hyperglycemia Additional Impression: Chest pain Qualified Codes: R07.9 - Chest pain, unspecified Disposition: ADMITTED INPATIENT Admitting Physician: HIMPankaj Condition: STABLE Referrals: KATHRINE CARRANZA MD (PCP) Justicifation of Admission Dx: Justifications for Admission: Justification of Admission Dx: Yes Comments: Chest pain, hyperglycemia. CARLY BROWNE DIRECTOR [employer] SYSTEMS May 17, 2020 19:03
[2020-05-17 19:07] LABS: BASO # 0.2 x10^3/uL (0.0-0.2); BASO % 1 % (0-3); EOS # 0.1 x10^3/uL (0.0-0.7); EOS % 1 % (0-3); HEMATOCRIT 39.8 % (39.0-53.0); HEMOGLOBIN 13.9 g/dL (13.0-17.5); LYMPH # 2.7 x10^3/uL (1.0-4.8); LYMPH % 25 % (24-48); MEAN CORPUSCULAR HEMOGLOBIN 33 pg (25-35); MEAN CORPUSCULAR HGB CONC 35 g/dL (31-37); MEAN CORPUSCULAR VOLUME 94 fL (79-100); MONO # 0.8 x10^3/uL (0.0-1.1); MONO % 7 % (0-9); NEUT % 65 % (31-73); PLATELET COUNT 175 x10^3/uL (140-400); RED BLOOD COUNT 4.26 x10^6/uL (4.30-5.70); RED CELL DISTRIBUTION WIDTH 13.6 % (11.5-14.5); WHITE BLOOD COUNT 10.8 x10^3/uL (4.0-11.0)
[2020-05-17 19:18] LABS: CALCIUM 8.5 mg/dL (8.5-10.1); CREATININE 1.2 mg/dL (0.7-1.3); GFR 61.6; POTASSIUM 3.3 mmol/L (3.5-5.1)
[2020-05-17 19:24] LABS: ALBUMIN 2.9 g/dL (3.4-5.0); ALBUMIN/GLOBULIN RATIO 0.8 (1.0-1.7); TOTAL BILIRUBIN 0.3 mg/dL (0.2-1.0); TOTAL PROTEIN 6.6 g/dL (6.4-8.2)
[2020-05-17] MEDS ORDERED: ONDANSETRON PF 4 MG/2 ML VIAL. IVP ONE (19:30)
--- NOTE | 2020-05-17 19:43 | RAD ---
EXAM: CT HEAD WITHOUT CONTRAST. HISTORY: Headache and dizziness. TECHNIQUE: Computed tomography of the head was performed without intravenous contrast. One or more of the following individualized dose reduction techniques were utilized for this examination: 1. Automated exposure control. 2. Adjustment of the mA and/or kV according to patient size. 3. Use of iterative reconstruction technique. COMPARISON: 09/18/2019. FINDINGS: There is no intracranial hemorrhage. Chronic lacunar infarction noted bilaterally in the basal ganglia. There is mild chronic microangiopathic white matter change elsewhere. The ventricles are normal in size and position. The visualized paranasal sinuses appear clear. There are changes of bilateral cataract surgery. The temporal bones are unremarkable. The calvarium reveals no suspicious lesions. There are atherosclerotic calcifications of the internal carotid and vertebral arteries. IMPRESSION: 1. No acute intracranial findings. 2. Chronic bilateral basal ganglia lacunar infarct. Electronically signed by: Tono Suh MD (05/17/2020 7:41 PM) [facility]
--- NOTE | 2020-05-17 19:50 | RAD ---
AP chest x-ray HISTORY: Chest pain. COMPARISON: Chest x-ray May 16, 2020. FINDINGS: Heart size normal. Prominent epicardial fat-pad this stable. No pneumothorax, pulmonary opacities or pleural effusions. The bones are unremarkable. IMPRESSION: No acute process. Electronically signed by: Mikhail Leroy MD (05/17/2020 7:46 PM) [facility]
[2020-05-17 20:30] LABS: PROTHROMBIN TIME PATIENT 13.7 SEC (11.7-14.0)
[2020-05-17] MEDS ORDERED: NITROGLYCERIN SUBLINGUAL 0.4 MG BOTTLE OF 25. SL PRN (20:30)
[2020-05-17] MEDS ORDERED: ONDANSETRON PF 4 MG/2 ML VIAL. IV PRN (20:45)
[2020-05-17] MEDS ORDERED: fentaNYL PF VIAL 100 MCG/2 ML VIAL IV PRN (20:45)
[2020-05-17 21:33] LABS: BILIRUBIN,URINE NEGATIVE (NEG); CLARITY,URINE CLEAR; COLOR,URINE YELLOW; NITRITE,URINE NEGATIVE (NEG); PH,URINE 5.5 (<5.0-8.0); PROTEIN,URINE >=300 mg/dL (NEG-TRACE); UROBILINOGEN,URINE 0.2 mg/dL (0.2 mg/dL)
[2020-05-17 21:40] LABS: BACTERIA,URINE FEW /HPF (0-FEW); SQUAMOUS EPITHELIAL CELL,UR FEW /LPF
[2020-05-17 21:41] LABS: HYALINE CASTS, URINE FEW /HPF
[2020-05-17 21:42] VITALS: BP 186/78
[2020-05-17 22:31] VITALS: BP 153/67
[2020-05-18] MEDS ORDERED: MAGN400C PO (02:09)
[2020-05-18 03:05] VITALS: BP 160/85
[2020-05-18 07:00] VITALS: BP 187/91
[2020-05-18] MEDS ORDERED: POTASSIUM CHLORIDE 20 MEQ TABLET.ER. PO ONE (08:45)
[2020-05-18] MEDS ORDERED: LIDOCAINE (700MG/PATCH) PATCH. TD SCH (09:30)
--- NOTE | 2020-05-18 09:37 | PDOC1 ---
History and Physical Date of Admission Date of Admission DATE: 05/18/20 TIME: 09:35 Identification/Chief Complaint Chief Complaint BACK PAIN Source Source: Chart review, Patient History of Present Illness History of Present Illness Patient is a 60 year old male who presents with was seen last night and admitted for hyperglycemia. He left AMA around 1:00 this morning after he felt better. States for the last 2 weeks has had mild abdominal discomfort and diarrhea of which he is on Loperamide for. CT from May 07 shows no acute findings. Patient states he still has blurred vision and dizziness with nausea and vomiting that has continued today. He states that he has chest pressure and feels like there is an elephant sitting on his chest. Patient states he is willing to stay and be admitted. He rates his overall discomfort at a 7 out of 10. For his diabetes patient takes Lantus and Januvia. Patient has a history of diabetes, A. fib, colon cancer, GERD, CVA, hypertension, TIA, cholecyste ctomy, defibrillator in the left chest, smoker. Past Medical History Cardiovascular: CAD, HTN Pulmonary: COPD CENTRAL NERVOUS SYSTEM: CVA, Dementia GI: GERD Heme/Onc: Cancer Psych: Depression Musculoskeletal: Osteoarthritis Infectious disease: No pertinent hx Renal/: Chronic renal insuff Endocrine: Diabetes Past Surgical History Past Surgical History: Cholecystectomy, Cataract Removal, Colon Resection Family History Family History: Heart Disease, Hypertension Social History Smoke: <1 pack per day ALCOHOL: none Drugs: Cocaine Current Problem List Problem List Problems Medical Problems: (1) Chest pain Status: Acute (2) Hyperglycemia Status: Acute Current Medications Current Medications Current Medications Ondansetron HCl (Zofran) 4 mg 1X ONCE IVP Last administered on 05/17/20at 19:11; Start 05/17/20 at 19:30; Stop 05/17/20 at 19:31; Status DC Nitroglycerin (Nitrostat) 0.4 mg PRN Q5MIN PRN SL CHEST PAIN; Start 05/17/20 at 20:30 Ondansetron HCl (Zofran) 4 mg PRN Q8HRS PRN IV NAUSEA/VOMITING 1ST CHOICE; Start 05/17/20 at 20:45; Stop 05/18/20 at 20:44 Fentanyl Citrate (Fentanyl 2ml Vial) 50 mcg PRN Q1HR PRN IV SEVERE PAIN 7-10 Last administered on 05/18/20at 07:39; Start 05/17/20 at 20:45; Stop 05/18/20 at 20:44 Potassium Chloride (Klor-Con) 40 meq 1X ONCE PO ; Start 05/18/20 at 08:45; Stop 05/18/20 at 08:46; Status DC Lidocaine (Lidoderm) 1 patch DAILY TD ; Start 05/18/20 at 09:30 Miscellaneous (Lidoderm Patch Removal) 1 ea QHS MC ; Start 05/18/20 at 21:00 Active Scripts Active Reported Magnesium (Magnesium Oxide) 400 Mg Capsule 1 Cap PO DAILY 30 Days Children's Aspirin (Aspirin) 81 Mg Tab.chew 1 Tab PO DAILY 30 Days Benicar (Olmesartan Medoxomil) 20 Mg Tablet 1 Tab PO BID Donepezil Hcl 5 Mg Tablet 5 Mg PO HS Lantus Solostar (Insulin Glargine,Hum.rec.anlog) 100 Unit/1 Ml Insuln.pen 30 Unit SQ BID Trazodone Hcl 50 Mg Tablet 50 Mg PO HS Victoza 3-Marcos (Liraglutide) 0.6 Mg/0.1 Ml Pen.injctr 1.2 Mg SQ DAILY NITROGLYCERIN SubLingual (Nitroglycerin) 0.4 Mg Tab.subl 0.4 Mg SL PRN Q5MIN PRN Novolog Flexpen (Insulin Aspart) 100 Unit/1 Ml Insuln.pen 16 Unit SQ TIDAC Requip (Ropinirole Hcl) 0.5 Mg Tablet 0.5 Mg PO HS Omeprazole 10 Mg Capsule.dr 10 Mg PO DAILY Furosemide 20 Mg Tablet 20 Mg PO DAILY Clopidogrel (Clopidogrel Bisulfate) 75 Mg Tablet 75 Mg PO DAILY Citalopram Hbr (Citalopram Hydrobromide) 20 Mg Tablet 1 Tab PO DAILY Tamsulosin Hcl 0.4 Mg Cap.er.24h 1 Tab PO HS Atorvastatin Calcium 40 Mg Tablet 1 Tab PO HS Allergies Allergies: Coded Allergies: Penicillins (Verified Allergy, Intermediate, 11/14/17) codeine (Verified Allergy, Intermediate, 08/01/18) Tolerates hydrocodone and morphin Physical Exam General: mild distress, Other Extremities: No edema Skin: No significant lesion Neuro: Normal speech Psych/Mental Status: Other (OBTUSE, DISAGREEABLE) Vitals Vitals Vital Signs Date Time Temp Pulse Resp B/P (MAP) Pulse Ox O2 Delivery O2 Flow Rate FiO2 7/3/20 07:39 20 97 Nasal Cannula 2.0 05/18/20 07:00 97.6 73 187/91 (123) 97.6 Labs Labs Laboratory Tests Test 05/17/20 18:41 05/17/20 19:02 05/17/20 21:25 05/18/20 08:00 Glucose (Fingerstick) 276 mg/dL (70-99) 178 mg/dL (70-99) White Blood Count 10.8 x10^3/uL (4.0-11.0) Red Blood Count 4.26 x10^6/uL (4.30-5.70) Hemoglobin 13.9 g/dL (13.0-17.5) Hematocrit 39.8 % (39.0-53.0) Mean Corpuscular Volume 94 fL (79-100) Mean Corpuscular Hemoglobin 33 pg (25-35) Mean Corpuscular Hemoglobin Concent 35 g/dL (31-37) Red Cell Distribution Width 13.6 % (11.5-14.5) Platelet Count 175 x10^3/uL (140-400) Neutrophils (%) (Auto) 65 % (31-73) Lymphocytes (%) (Auto) 25 % (24-48) Monocytes (%) (Auto) 7 % (0-9) Eosinophils (%) (Auto) 1 % (0-3) Basophils (%) (Auto) 1 % (0-3) Neutrophils # (Auto) 7.0 x10^3/uL (1.8-7.7) Lymphocytes # (Auto) 2.7 x10^3/uL (1.0-4.8) Monocytes # (Auto) 0.8 x10^3/uL (0.0-1.1) Eosinophils # (Auto) 0.1 x10^3/uL (0.0-0.7) Basophils # (Auto) 0.2 x10^3/uL (0.0-0.2) Prothrombin Time 13.7 SEC (11.7-14.0) Prothromb Time International Ratio 1.1 (0.8-1.1) Sodium Level 138 mmol/L (136-145) Potassium Level 3.3 mmol/L (3.5-5.1) Chloride Level 101 mmol/L (98-107) Carbon Dioxide Level 31 mmol/L (21-32) Anion Gap 6 (6-14) Blood Urea Nitrogen 14 mg/dL (8-26) Creatinine 1.2 mg/dL (0.7-1.3) Estimated GFR (Cockcroft-Gault) 61.6 BUN/Creatinine Ratio 12 (6-20) Glucose Level 267 mg/dL (70-99) Calcium Level 8.5 mg/dL (8.5-10.1) Total Bilirubin 0.3 mg/dL (0.2-1.0) Aspartate Amino Transf (AST/SGOT) 27 U/L (15-37) Alanine Aminotransferase (ALT/SGPT) 31 U/L (16-63) Alkaline Phosphatase 68 U/L (46-116) Troponin I Quantitative < 0.017 ng/mL (0.000-0.055) HM-Qyk-I-Type Natriuretic Peptide 273 pg/mL (0-124) Total Protein 6.6 g/dL (6.4-8.2) Albumin 2.9 g/dL (3.4-5.0) Albumin/Globulin Ratio 0.8 (1.0-1.7) Acetone Level Neg (NEG) Urine Collection Type Unknown Urine Color Yellow Urine Clarity Clear Urine pH 5.5 (<5.0-8.0) Urine Specific Powers >=1.030 (1.000-1.030) Urine Protein >=300 mg/dL (NEG-TRACE) Urine Glucose (UA) >=1000 mg/dL (NEG) Urine Ketones (Stick) Negative mg/dL (NEG) Urine Blood Small (NEG) Urine Nitrite Negative (NEG) Urine Bilirubin Negative (NEG) Urine Urobilinogen Dipstick 0.2 mg/dL (0.2 mg/dL) Urine Leukocyte Esterase Negative (NEG) Urine RBC 3-5 /HPF (0-2) Urine WBC 1-4 /HPF (0-4) Urine Squamous Epithelial Cells Few /LPF Urine Bacteria Few /HPF (0-FEW) Urine Hyaline Casts Few /HPF Urine Mucus Mod /LPF Laboratory Tests Test 05/17/20 18:41 05/17/20 19:02 05/17/20 21:25 05/18/20 08:00 Glucose (Fingerstick) 276 mg/dL (70-99) 178 mg/dL (70-99) White Blood Count 10.8 x10^3/uL (4.0-11.0) Red Blood Count 4.26 x10^6/uL (4.30-5.70) Hemoglobin 13.9 g/dL (13.0-17.5) Hematocrit 39.8 % (39.0-53.0) Mean Corpuscular Volume 94 fL (79-100) Mean Corpuscular Hemoglobin 33 pg (25-35) Mean Corpuscular Hemoglobin Concent 35 g/dL (31-37) Red Cell Distribution Width 13.6 % (11.5-14.5) Platelet Count 175 x10^3/uL (140-400) Neutrophils (%) (Auto) 65 % (31-73) Lymphocytes (%) (Auto) 25 % (24-48) Monocytes (%) (Auto) 7 % (0-9) Eosinophils (%) (Auto) 1 % (0-3) Basophils (%) (Auto) 1 % (0-3) Neutrophils # (Auto) 7.0 x10^3/uL (1.8-7.7) Lymphocytes # (Auto) 2.7 x10^3/uL (1.0-4.8) Monocytes # (Auto) 0.8 x10^3/uL (0.0-1.1) Eosinophils # (Auto) 0.1 x10^3/uL (0.0-0.7) Basophils # (Auto) 0.2 x10^3/uL (0.0-0.2) Prothrombin Time 13.7 SEC (11.7-14.0) Prothromb Time International Ratio 1.1 (0.8-1.1) Sodium Level 138 mmol/L (136-145) Potassium Level 3.3 mmol/L (3.5-5.1) Chloride Level 101 mmol/L (98-107) Carbon Dioxide Level 31 mmol/L (21-32) Anion Gap 6 (6-14) Blood Urea Nitrogen 14 mg/dL (8-26) Creatinine 1.2 mg/dL (0.7-1.3) Estimated GFR (Cockcroft-Gault) 61.6 BUN/Creatinine Ratio 12 (6-20) Glucose Level 267 mg/dL (70-99) Calcium Level 8.5 mg/dL (8.5-10.1) Total Bilirubin 0.3 mg/dL (0.2-1.0) Aspartate Amino Transf (AST/SGOT) 27 U/L (15-37) Alanine Aminotransferase (ALT/SGPT) 31 U/L (16-63) Alkaline Phosphatase 68 U/L (46-116) Troponin I Quantitative < 0.017 ng/mL (0.000-0.055) ME-Hfm-Q-Type Natriuretic Peptide 273 pg/mL (0-124) Total Protein 6.6 g/dL (6.4-8.2) Albumin 2.9 g/dL (3.4-5.0) Albumin/Globulin Ratio 0.8 (1.0-1.7) Acetone Level Neg (NEG) Urine Collection Type Unknown Urine Color Yellow Urine Clarity Clear Urine pH 5.5 (<5.0-8.0) Urine Specific Powers >=1.030 (1.000-1.030) Urine Protein >=300 mg/dL (NEG-TRACE) Urine Glucose (UA) >=1000 mg/dL (NEG) Urine Ketones (Stick) Negative mg/dL (NEG) Urine Blood Small (NEG) Urine Nitrite Negative (NEG) Urine Bilirubin Negative (NEG) Urine Urobilinogen Dipstick 0.2 mg/dL (0.2 mg/dL) Urine Leukocyte Esterase Negative (NEG) Urine RBC 3-5 /HPF (0-2) Urine WBC 1-4 /HPF (0-4) Urine Squamous Epithelial Cells Few /LPF Urine Bacteria Few /HPF (0-FEW) Urine Hyaline Casts Few /HPF Urine Mucus Mod /LPF VTE Prophylaxis Ordered VTE Prophylaxis Devices: Yes VTE Pharmacological Prophylaxi: Yes Assessment/Plan Assessment/Plan COMPLAINS OF BACK PAIN, HAS BEEN TO FOR EPIDURAL JOINT INJECTIONS,. HE YELLED AT ME THAT I HAD ATTITUDE ABOUT HIS BACK PAIN. DC HOME, CHRONIC PAIN NO CHEST PAIN, RAZ WEIR MD May 18, 2020 09:37
--- NOTE | 2020-05-18 10:47 | NUR ---
Discharge Note: JORGE KINGSLEY [address] Discharge instructions and discharge home medications reviewed with Patient and a copy given. All questions have been answered and understanding verbalized. The following instructions and handouts were given: Chest pain and back pain. I spoke to Dr. Montalvo via the phone after patient mentioned that Dr. Christopher is his Primary doctor who refereed him to come to the hospital. Dr. Montalvo mentioned that patient has history of missing multiple office appointments and left the hospital AMA from prior visit. Discontinued iv catheter line and catheter intact. Patient discharged to home with self-care, drove self home.
[2020-05-18] MEDS ORDERED: PATCH REMOVAL. MC SCH (21:00)
--- NOTE | 2020-05-20 08:39 | EKG ---
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
== END 2020-05-18 10:55 | disposition home or self-care (01) | DRG 313 ==
LOC: ER 18:22 → 2 SOUTH 20:20
PROVIDERS: ADMIT Internal Medicine; ATTEND Internal Medicine
DX: R07.89 Other chest pain (principal); E11.65 Type 2 diabetes mellitus with hyperglycemia; E11.22 Type 2 diabetes mellitus with diabetic chronic kidney disease; F03.90 Unspecified dementia, unspecified severity, without behavioral disturbance, psychotic disturbance, mood disturbance, and anxiety; F17.210 Nicotine dependence, cigarettes, uncomplicated; G89.29 Other chronic pain; I12.9 Hypertensive chronic kidney disease with stage 1 through stage 4 chronic kidney disease, or unspecified chronic kidney disease; I25.10 Atherosclerotic heart disease of native coronary artery without angina pectoris; I48.91 Unspecified atrial fibrillation; J44.9 Chronic obstructive pulmonary disease, unspecified; N18.9 Chronic kidney disease, unspecified; Z76.5 Malingerer [conscious simulation]; Z79.4 Long term (current) use of insulin; Z82.49 Family history of ischemic heart disease and other diseases of the circulatory system; Z85.038 Personal history of other malignant neoplasm of large intestine; Z86.73 Personal history of transient ischemic attack (TIA), and cerebral infarction without residual deficits; F32.9 Major depressive disorder, single episode, unspecified; K21.9 Gastro-esophageal reflux disease without esophagitis; M19.90 Unspecified osteoarthritis, unspecified site
CPT/HCPCS: 36415; 70450; 71045; 80053; 81001; 82010; 82962; 83880; 84484; 85025; 85610; 93005; 96374; 99285; J2405; J3010; G0378

== ENCOUNTER 2020-06-11 22:31 | Observation (INO) | payer OTHER ==
[~2020-06-11] VITALS: Ht 170.2 cm; Wt 114.3 kg
[~2020-06-11 22:31] MED LIST changes: +MAGN400C PO; +OXYC-411 PO; -OXYC1TAB20 PO
[2020-06-11] MEDS ORDERED: ONDANSETRON PF 4 MG/2 ML VIAL. IV ONE (23:15)
[2020-06-11] MEDS ORDERED: DEXAMETHASONE SOD PHOS 4 MG/ML VIAL IVP ONE (23:15)
[2020-06-11] MEDS ORDERED: fentaNYL PF VIAL 100 MCG/2 ML VIAL IV ONE (23:15)
[2020-06-11 23:20] LABS: BASO # 0.2 x10^3/uL (0.0-0.2); BASO % 1 % (0-3); EOS # 0.2 x10^3/uL (0.0-0.7); EOS % 1 % (0-3); HEMATOCRIT 42.5 % (39.0-53.0); HEMOGLOBIN 14.8 g/dL (13.0-17.5); LYMPH # 2.7 x10^3/uL (1.0-4.8); LYMPH % 23 % (24-48); MEAN CORPUSCULAR HEMOGLOBIN 33 pg (25-35); MEAN CORPUSCULAR HGB CONC 35 g/dL (31-37); MEAN CORPUSCULAR VOLUME 94 fL (79-100); MONO # 0.6 x10^3/uL (0.0-1.1); MONO % 5 % (0-9); NEUT % 69 % (31-73); PLATELET COUNT 187 x10^3/uL (140-400); RED BLOOD COUNT 4.53 x10^6/uL (4.30-5.70); RED CELL DISTRIBUTION WIDTH 13.5 % (11.5-14.5); WHITE BLOOD COUNT 11.7 x10^3/uL (4.0-11.0)
[2020-06-11 23:23] LABS: CALCIUM 9.1 mg/dL (8.5-10.1); CREATININE 1.2 mg/dL (0.7-1.3); GFR 61.6; POTASSIUM 3.3 mmol/L (3.5-5.1)
[2020-06-11 23:28] LABS: ALBUMIN 3.1 g/dL (3.4-5.0); ALBUMIN/GLOBULIN RATIO 0.7 (1.0-1.7); TOTAL BILIRUBIN 0.5 mg/dL (0.2-1.0); TOTAL PROTEIN 7.3 g/dL (6.4-8.2)
[2020-06-11 23:51] LABS: % EOS 1 % (0-5); % LYMPHS 18 % (24-48); % MONOS 6 % (0-10); % SEGS 75 % (35-66); PLT ESTIMATE ADEQUATE (ADEQUATE)
--- NOTE | 2020-06-11 23:51 | PHYS DOC ---
Past Medical History Past Medical History: A-Fib, Arthritis, CAD, Cancer, CVA, Depression, Diabetes- Type II, GERD, Hypertension, TIA, Other Additional Past Medical Histor: colon cancer,CARDIAC ARREST X2,CHRONIC BACK PAIN Past Surgical History: Cancer Surgery, Cholecystectomy, Other Additional Past Surgical Histo: eyes,ears,nose,hand ,DEFIB LEFT CHEST,COLON RESECTION Smoking Status: Current Some Day Smoker Alcohol Use: None Drug Use: None General Adult EDM: Chief Complaint: MECHANICAL FALL HPI: HPI: Patient is a 60-year-old male with a number of significant medical problems including chronic back pain. He presents tonight with intractable low back pain. He states the pain is severe radiates to both legs left greater than right. He states that he is recently had a steroid injection to help with the discomfort. He states over the last 24 hours he has been unable to hold his bowels or bladder and has been wearing a diaper. He states he has been unable to walk secondary to the pain in his leg especially on the left feels weak. [] Review of Systems: Review of Systems: Constitutional: Denies fever or chills. [] Eyes: Denies change in visual acuity. [] HENT: Denies nasal congestion or sore throat. [] Respiratory: Denies cough or shortness of breath. [] Cardiovascular: Denies chest pain or edema. [] GI: Denies abdominal pain, nausea, vomiting, bloody stools or diarrhea. [] : Denies dysuria. [] Musculoskeletal: Per HPI [] Integument: Denies rash. [] Neurologic: Denies headache, focal weakness or sensory changes. [] Endocrine: Denies polyuria or polydipsia. [] Lymphatic: Denies swollen glands. [] Psychiatric: Anxious [] Heart Score: Risk Factors: Risk Factors: DM, Current or recent (<one month) smoker, HTN, HLP, family history of CAD, obesity. Risk Scores: Score 0 - 3: 2.5% MACE over next 6 weeks - Discharge Home Score 4 - 6: 20.3% MACE over next 6 weeks - Admit for Clinical Observation Score 7 - 10: 72.7% MACE over next 6 weeks - Early Invasive Strategies Current Medications: Current Medications Medications (Trade) Dose Ordered Sig/Viviana Start Time Stop Time Status Last Admin Dose Admin Dexamethasone Sodium Phosphate (Decadron) 10 mg 1X ONCE 06/11/20 23:15 06/11/20 23:16 DC 06/11/20 23:14 10 MG Fentanyl Citrate (Fentanyl 2ml Vial) 50 mcg 1X ONCE 06/11/20 23:15 06/11/20 23:16 DC 06/11/20 23:15 50 MCG Ondansetron HCl (Zofran) 4 mg 1X ONCE 06/11/20 23:15 06/11/20 23:16 DC 06/11/20 23:14 4 MG Allergies: Allergies: Allergies Coded Allergies Type Severity Reaction Last Updated Verified Penicillins Allergy Intermediate 11/14/17 Yes codeine Allergy Intermediate 08/01/18 Yes Physical Exam: PE: Constitutional: Well developed, well nourished, moderate to severe distress, non-toxic appearance. [] HENT: Normocephalic, atraumatic, bilateral external ears normal, oropharynx moist, no oral exudates, nose normal. [] Eyes: PERRLA, EOMI, conjunctiva normal, no discharge. [] Neck: Normal range of motion, no tenderness, supple, no stridor. [] Cardiovascular:Heart rate regular rhythm, no murmur [] Lungs & Thorax: Bilateral breath sounds clear to auscultation [] Abdomen: Bowel sounds normal, soft, no tenderness, no masses, no pulsatile masses. [] Skin: Warm, dry, no erythema, no rash. [] Back: No tenderness, no CVA tenderness. [] Extremities: No tenderness, no cyanosis, no clubbing, ROM intact, no edema. [] Neurologic: Alert and oriented X 3, diminished patellar reflex left greater than right 1/5 strength positive leg raise at 10 degrees on the left [] Psychologic: Very anxious [] Current Patient Data: Labs: Laboratory Tests Test 06/11/20 23:05 White Blood Count 11.7 x10^3/uL (4.0-11.0) H Red Blood Count 4.53 x10^6/uL (4.30-5.70) Hemoglobin 14.8 g/dL (13.0-17.5) Hematocrit 42.5 % (39.0-53.0) Mean Corpuscular Volume 94 fL (79-100) Mean Corpuscular Hemoglobin 33 pg (25-35) Mean Corpuscular Hemoglobin Concent 35 g/dL (31-37) Red Cell Distribution Width 13.5 % (11.5-14.5) Platelet Count 187 x10^3/uL (140-400) Neutrophils (%) (Auto) 69 % (31-73) Lymphocytes (%) (Auto) 23 % (24-48) L Monocytes (%) (Auto) 5 % (0-9) Eosinophils (%) (Auto) 1 % (0-3) Basophils (%) (Auto) 1 % (0-3) Neutrophils # (Auto) 8.0 x10^3/uL (1.8-7.7) H Lymphocytes # (Auto) 2.7 x10^3/uL (1.0-4.8) Monocytes # (Auto) 0.6 x10^3/uL (0.0-1.1) Eosinophils # (Auto) 0.2 x10^3/uL (0.0-0.7) Basophils # (Auto) 0.2 x10^3/uL (0.0-0.2) Platelet Estimate Pending Sodium Level 141 mmol/L (136-145) Potassium Level 3.3 mmol/L (3.5-5.1) L Chloride Level 101 mmol/L (98-107) Carbon Dioxide Level 33 mmol/L (21-32) H Anion Gap 7 (6-14) Blood Urea Nitrogen 13 mg/dL (8-26) Creatinine 1.2 mg/dL (0.7-1.3) Estimated GFR (Cockcroft-Gault) 61.6 BUN/Creatinine Ratio 11 (6-20) Glucose Level 143 mg/dL (70-99) H Calcium Level 9.1 mg/dL (8.5-10.1) Total Bilirubin 0.5 mg/dL (0.2-1.0) Aspartate Amino Transferase (AST) 22 U/L (15-37) Alanine Aminotransferase (ALT) 25 U/L (16-63) Alkaline Phosphatase 68 U/L (46-116) Creatine Kinase 27 U/L (39-308) L Total Protein 7.3 g/dL (6.4-8.2) Albumin 3.1 g/dL (3.4-5.0) L Albumin/Globulin Ratio 0.7 (1.0-1.7) L Laboratory Tests 06/11/20 23:05 Laboratory Tests 06/11/20 23:05 Vital Signs: Vital Signs Date Time Temp Pulse Resp B/P (MAP) Pulse Ox O2 Delivery O2 Flow Rate FiO2 06/11/20 23:15 15 97 Room Air 06/11/20 22:35 98.2 83 174/98 (123) 98.2 EKG: EKG: [] Radiology/Procedures: Radiology/Procedures: [] Impression: REASON: cauda equina - back pain with loss of bowel and bladder, PROCEDURE: LUMBAR SPINE WO CONTRAST MRI lumbar spine without contrast: Reason for examination: Cauda equina with back pain and loss of bowel and bladder function. Multiplanar images was obtained through the lumbar spine with no contrast administered. The vertebral bodies of the lumbar spine are normally aligned anteriorly and posteriorly with signal intensity is normal. Posterior elements are intact. The intervertebral discs show some mild posterior bulging at the L2-3 and L3-4 and L4-5 disc levels. This does cause a mild right lateral recess stenosis at the L2-3 level. There is also some mild central stenosis at the L4-5 disc level. No other site of significant spinal stenosis is present. The conus medullaris and cauda equina show no gross abnormalities. IMPRESSION: Mild posterior disc bulging at the L2-3, L3-4 and L4-5 levels with a mild right lateral recess stenosis at the L2-3 level and mild central stenosis at the L4-5 level. No other focal abnormalities evident in the lumbar spine. Course & Med Decision Making: Course & Med Decision Making Pertinent Labs and Imaging studies reviewed. (See chart for details) [ED course: Evaluation reveals a 60-year-old male with an exacerbation of chronic back pain. He was unable to hold his bowel and bladder so an MRI was pe rformed to rule out cauda equina which was negative. Patient remained in pretty significant distress and I did not feel he could safely go home. We will put him in for pain management.] Abbi Disclaimer: Abbi Disclaimer: This electronic medical record was generated, in whole or in part, using a voice recognition dictation system. Departure Departure Impression: Primary Impression: Intractable low back pain Disposition: ADMITTED INPATIENT Admitting Physician: JOSE M Condition: STABLE Referrals: NO PCP (PCP) Justicifation of Admission Dx: Justifications for Admission: Justification of Admission Dx: Yes Comments: Intractable back pain FREDA THEODORE DO Jun 11, 2020 23:51
--- NOTE | 2020-06-12 01:42 | RAD ---
MRI lumbar spine without contrast: Reason for examination: Cauda equina with back pain and loss of bowel and bladder function. Multiplanar images was obtained through the lumbar spine with no contrast administered. The vertebral bodies of the lumbar spine are normally aligned anteriorly and posteriorly with signal intensity is normal. Posterior elements are intact. The intervertebral discs show some mild posterior bulging at the L2-3 and L3-4 and L4-5 disc levels. This does cause a mild right lateral recess stenosis at the L2-3 level. There is also some mild central stenosis at the L4-5 disc level. No other site of significant spinal stenosis is present. The conus medullaris and cauda equina show no gross abnormalities. IMPRESSION: Mild posterior disc bulging at the L2-3, L3-4 and L4-5 levels with a mild right lateral recess stenosis at the L2-3 level and mild central stenosis at the L4-5 level. No other focal abnormalities evident in the lumbar spine. Electronically signed by: Celia Galicia MD (06/12/2020 1:39 AM) [id number]
[2020-06-12] MEDS ORDERED: DEXTROSE 50% 25 GM / 50ML DISP.SYRIN. IV PRN ×2 (02:15→07:30)
[2020-06-12] MEDS ORDERED: ONDANSETRON PF 4 MG/2 ML VIAL. IV PRN (02:15)
[2020-06-12 02:27] LABS: BILIRUBIN,URINE NEGATIVE (NEG); CLARITY,URINE CLEAR; COLOR,URINE AMBER; NITRITE,URINE NEGATIVE (NEG); PROTEIN,URINE >=300 mg/dL (NEG-TRACE)
[2020-06-12 02:38] LABS: BACTERIA,URINE FEW /HPF (0-FEW); SQUAMOUS EPITHELIAL CELL,UR MOD /LPF
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
[2020-06-12] MEDS: fentaNYL PF VIAL 100 MCG/2 ML VIAL IV PRN ×3 (04:10→10:00)
[2020-06-12 07:00] VITALS: BP 122/65
[2020-06-12] MEDS ORDERED: NITROGLYCERIN SUBLINGUAL 0.4 MG BOTTLE OF 25. SL PRN (07:30)
[2020-06-12] MEDS ORDERED: METHOCARBAMOL 500 MG TABLET PO PRN (07:45)
[2020-06-12] MEDS ORDERED: PROCHLORPERAZINE 10 MG/2 ML VIAL. IV PRN (07:45)
[2020-06-12] MEDS ORDERED: KETOROLAC 30 MG/ML VIAL. IVP PRN (07:45)
[2020-06-12] MEDS ORDERED: PANTOPRAZOLE 40 MG TABLET.DR. PO SCH (08:00)
[2020-06-12] MEDS ORDERED: INSULIN LISPRO 300 UNITS/3 ML VIAL. SQ SCH ×3 (08:00)
[2020-06-12 08:51] LABS: BASO # 0.1 x10^3/uL (0.0-0.2); BASO % 1 % (0-3); EOS % 0 % (0-3); HEMATOCRIT 42.5 % (39.0-53.0); HEMOGLOBIN 14.5 g/dL (13.0-17.5); LYMPH # 1.3 x10^3/uL (1.0-4.8); LYMPH % 14 % (24-48); MEAN CORPUSCULAR HEMOGLOBIN 32 pg (25-35); MEAN CORPUSCULAR HGB CONC 34 g/dL (31-37); MEAN CORPUSCULAR VOLUME 95 fL (79-100); MONO # 0.1 x10^3/uL (0.0-1.1); MONO % 1 % (0-9); NEUT # 8.1 x10^3/uL (1.8-7.7); NEUT % 84 % (31-73); PLATELET COUNT 178 x10^3/uL (140-400); RED BLOOD COUNT 4.49 x10^6/uL (4.30-5.70); RED CELL DISTRIBUTION WIDTH 13.5 % (11.5-14.5); WHITE BLOOD COUNT 9.6 x10^3/uL (4.0-11.0)
[2020-06-12] MEDS ORDERED: INSULIN GLARGINE SYRINGE. SQ SCH (09:00)
[2020-06-12] MEDS ORDERED: MAGNESIUM OXIDE 400 MG TABLET PO SCH (09:00)
[2020-06-12] MEDS ORDERED: ASPIRIN CHEWABLE 81 MG TABLET. PO SCH (09:00)
[2020-06-12] MEDS ORDERED: CLOPIDOGREL BISULFATE 75 MG TABLET PO SCH (09:00)
[2020-06-12] MEDS ORDERED: FUROSEMIDE 20 MG TABLET PO SCH (09:00)
[2020-06-12] MEDS ORDERED: NON FORMULARY ITEM (Liraglutide (Victoza 3-Pak) 1.2 MG) SQ SCH (09:00)
[2020-06-12] MEDS ORDERED: CITALOPRAM 20 MG TABLET. PO SCH (09:00)
[2020-06-12] MEDS ORDERED: LOSARTAN POTASSIUM 50 MG TABLET. PO SCH (09:00)
[2020-06-12 09:13] LABS: C-REACTIVE PROTEIN 7.3 mg/L (0-3.3); CALCIUM 8.7 mg/dL (8.5-10.1); CREATININE 1.3 mg/dL (0.7-1.3); GFR 56.1; POTASSIUM 4.4 mmol/L (3.5-5.1)
[2020-06-12 11:00] VITALS: BP 120/60
--- NOTE | 2020-06-12 11:25 | NUR ---
SAMARIA following. Discussed with RN, pt from home alone, room air, ada diet. SAM[facility]IA referral for CPAP and glasses etc, pt will need to do an outpatient sleep study to do a CPAP - RN notified. Pt to contact his insurance regarding other needs. Pt last admission September, - was discharged with [facility]. SAMARIA will continue to follow for plan of care. Addendum: 06/12/20 at 1328 by MEAGAN MERA Pt left AMA.
--- NOTE | 2020-06-12 11:35 | NUR ---
At 1100, Dr. Sanchez approached this nurse and asked where the patient went since he was not in his room. The [employer] said he was there in the room 10 minutes earlier when she took his vital signs. This nurse called security and patient was found in the second floor(main entrance) wanting to go home. Apparently he walked off the unit and did not notify the hospital staff. He was brought back to the unit , and stated that he's not going to wait for the doctor. He signed AMA papers, consequences explained. [employer] Crew Person and attending physician notified. He left the unit ambulatory with a cane at 1125.
--- NOTE | 2020-06-12 13:52 | PDOC1 ---
History and Physical Date of Admission Date of Admission 06/12/2020 Identification/Chief Complaint Chief Complaint Left AGAINST MEDICAL ADVICE Source Source: Chart review History of Present Illness History of Present Illness Patient is a 60-year-old gentleman with multiple medical comorbidities including diabetes TIA hypertension who came to the emergency department complaining of chronic back pain. Patient was admitted under our service but unfortunately did not want to wait to be seen and left AGAINST MEDICAL ADVICE. I was not able to assess the patient personally, I reviewed the chart and there was reassurance th at his MRI did not find concerning changes consistent with cauda equina syndrome please see documentation from the ER physician for further details Past Medical History Cardiovascular: CAD, HTN Pulmonary: COPD CENTRAL NERVOUS SYSTEM: CVA, Dementia GI: GERD Heme/Onc: Cancer Psych: Depression Infectious disease: No pertinent hx Renal/: Chronic renal insuff Endocrine: Diabetes Past Surgical History Past Surgical History: Cholecystectomy, Cataract Removal, Colon Resection Family History Family History: Heart Disease, Hypertension Social History ALCOHOL: none Drugs: Cocaine Current Problem List Problem List Problems Medical Problems: (1) Intractable low back pain Status: Acute Current Medications Current Medications Current Medications Medications (Trade) Dose Ordered Sig/Viviana Start Time Stop Time Status Last Admin Dose Admin Aspirin (Aspirin Chewable) 81 mg DAILY 06/12/20 09:00 06/12/20 13:07 DC 06/12/20 09:05 81 MG Atorvastatin Calcium (Lipitor) 40 mg HS 06/12/20 21:00 06/12/20 13:07 DC Citalopram Hydrobromide (CeleXA) 20 mg DAILY 06/12/20 09:00 06/12/20 13:07 DC 06/12/20 09:06 20 MG Clopidogrel Bisulfate (Plavix) 75 mg DAILY 06/12/20 09:00 06/12/20 13:07 DC 06/12/20 09:05 75 MG Dexamethasone Sodium Phosphate (Decadron) 10 mg 1X ONCE 06/11/20 23:15 06/11/20 23:16 DC 06/11/20 23:14 10 MG Dextrose (Dextrose 50%-Water Syringe) 12.5 gm PRN Q15MIN PRN 06/12/20 07:30 06/12/20 13:07 DC Donepezil HCl (Aricept) 5 mg HS 06/12/20 21:00 06/12/20 13:07 DC Fentanyl Citrate (Fentanyl 2ml Vial) 50 mcg PRN Q1HR PRN 06/12/20 02:15 06/12/20 13:07 DC 06/12/20 10:00 50 MCG Furosemide (Lasix) 20 mg DAILY 06/12/20 09:00 06/12/20 13:07 DC 06/12/20 09:05 20 MG Insulin Glargine (Lantus Syringe) 44 unit BID 06/12/20 09:00 06/12/20 13:07 DC 06/12/20 09:09 44 UNIT Insulin Human Lispro (HumaLOG) 0-7 UNITS TIDWMEALS 06/12/20 08:00 06/12/20 13:07 DC 06/12/20 09:10 4 UNITS Ketorolac Tromethamine (Toradol 30mg Vial) 30 mg PRN Q6HRS PRN 06/12/20 07:45 06/12/20 13:07 DC Losartan Potassium (Cozaar) 100 mg DAILY 06/12/20 09:00 06/12/20 13:07 DC 06/12/20 09:05 100 MG Magnesium Oxide (Magnesium Oxide) 400 mg DAILY 06/12/20 09:00 06/12/20 13:07 DC 06/12/20 09:05 400 MG Methocarbamol (Robaxin) 1,000 mg PRN Q8HRS PRN 06/12/20 07:45 06/12/20 13:07 DC Nitroglycerin (Nitrostat) 0.4 mg PRN Q5MIN PRN 06/12/20 07:30 06/12/20 13:07 DC Non-Formulary Medication (Liraglutide (Victoza 3-Marcos)) 1.2 mg DAILY 06/12/20 09:00 06/12/20 13:07 DC Ondansetron HCl (Zofran) 4 mg PRN Q8HRS PRN 06/12/20 02:15 06/12/20 13:07 DC Pantoprazole Sodium (Protonix) 40 mg DAILYAC 06/12/20 08:00 06/12/20 13:07 DC 06/12/20 09:06 40 MG Prochlorperazine Edisylate (Compazine) 10 mg PRN Q6HRS PRN 06/12/20 07:45 06/12/20 13:07 DC Ropinirole HCl (Requip) 0.5 mg QHS 06/12/20 21:00 06/12/20 13:07 DC Tamsulosin HCl (Flomax) 0.4 mg HS 06/12/20 21:00 06/12/20 13:07 DC Trazodone HCl (Desyrel) 50 mg HS 06/12/20 21:00 06/12/20 13:07 DC Allergies Allergies Allergies Coded Allergies Type Severity Reaction Last Updated Verified Penicillins Allergy Intermediate 11/14/17 Yes codeine Allergy Intermediate 08/01/18 Yes Vitals Vitals Vital Signs Date Time Temp Pulse Resp B/P (MAP) Pulse Ox O2 Delivery O2 Flow Rate FiO2 06/12/20 11:00 98.3 68 18 120/60 (80) 91 Room Air 98.3 Labs Labs Laboratory Tests Test 06/11/20 23:05 06/12/20 02:18 06/12/20 07:19 06/12/20 08:30 White Blood Count 11.7 x10^3/uL (4.0-11.0) 9.6 x10^3/uL (4.0-11.0) Red Blood Count 4.53 x10^6/uL (4.30-5.70) 4.49 x10^6/uL (4.30-5.70) Hemoglobin 14.8 g/dL (13.0-17.5) 14.5 g/dL (13.0-17.5) Hematocrit 42.5 % (39.0-53.0) 42.5 % (39.0-53.0) Mean Corpuscular Volume 94 fL (79-100) 95 fL (79-100) Mean Corpuscular Hemoglobin 33 pg (25-35) 32 pg (25-35) Mean Corpuscular Hemoglobin Concent 35 g/dL (31-37) 34 g/dL (31-37) Red Cell Distribution Width 13.5 % (11.5-14.5) 13.5 % (11.5-14.5) Platelet Count 187 x10^3/uL (140-400) 178 x10^3/uL (140-400) Neutrophils (%) (Auto) 69 % (31-73) 84 % (31-73) Lymphocytes (%) (Auto) 23 % (24-48) 14 % (24-48) Monocytes (%) (Auto) 5 % (0-9) 1 % (0-9) Eosinophils (%) (Auto) 1 % (0-3) 0 % (0-3) Basophils (%) (Auto) 1 % (0-3) 1 % (0-3) Neutrophils # (Auto) 8.0 x10^3/uL (1.8-7.7) 8.1 x10^3/uL (1.8-7.7) Lymphocytes # (Auto) 2.7 x10^3/uL (1.0-4.8) 1.3 x10^3/uL (1.0-4.8) Monocytes # (Auto) 0.6 x10^3/uL (0.0-1.1) 0.1 x10^3/uL (0.0-1.1) Eosinophils # (Auto) 0.2 x10^3/uL (0.0-0.7) 0.0 x10^3/uL (0.0-0.7) Basophils # (Auto) 0.2 x10^3/uL (0.0-0.2) 0.1 x10^3/uL (0.0-0.2) Segmented Neutrophils % 75 % (35-66) Lymphocytes % 18 % (24-48) Monocytes % 6 % (0-10) Eosinophils % 1 % (0-5) Platelet Estimate Adequate (ADEQUATE) Sodium Level 141 mmol/L (136-145) 136 mmol/L (136-145) Potassium Level 3.3 mmol/L (3.5-5.1) 4.4 mmol/L (3.5-5.1) Chloride Level 101 mmol/L (98-107) 97 mmol/L (98-107) Carbon Dioxide Level 33 mmol/L (21-32) 30 mmol/L (21-32) Anion Gap 7 (6-14) 9 (6-14) Blood Urea Nitrogen 13 mg/dL (8-26) 19 mg/dL (8-26) Creatinine 1.2 mg/dL (0.7-1.3) 1.3 mg/dL (0.7-1.3) Estimated GFR (Cockcroft-Gault) 61.6 56.1 BUN/Creatinine Ratio 11 (6-20) Glucose Level 143 mg/dL (70-99) 362 mg/dL (70-99) Calcium Level 9.1 mg/dL (8.5-10.1) 8.7 mg/dL (8.5-10.1) Total Bilirubin 0.5 mg/dL (0.2-1.0) Aspartate Amino Transf (AST/SGOT) 22 U/L (15-37) Alanine Aminotransferase (ALT/SGPT) 25 U/L (16-63) Alkaline Phosphatase 68 U/L (46-116) Creatine Kinase 27 U/L (39-308) Total Protein 7.3 g/dL (6.4-8.2) Albumin 3.1 g/dL (3.4-5.0) Albumin/Globulin Ratio 0.7 (1.0-1.7) Urine Collection Type Unknown Urine Color Zoe Urine Clarity Clear Urine pH 7.0 (<5.0-8.0) Urine Specific [place] 1.025 (1.000-1.030) Urine Protein >=300 mg/dL (NEG-TRACE) Urine Glucose (UA) Negative mg/dL (NEG) Urine Ketones (Stick) Negative mg/dL (NEG) Urine Blood Negative (NEG) Urine Nitrite Negative (NEG) Urine Bilirubin Negative (NEG) Urine Urobilinogen Dipstick 1.0 mg/dL (0.2 mg/dL) Urine Leukocyte Esterase Negative (NEG) Urine RBC 3-5 /HPF (0-2) Urine WBC 5-10 /HPF (0-4) Urine Squamous Epithelial Cells Mod /LPF Urine Bacteria Few /HPF (0-FEW) Urine Mucus Mod /LPF Glucose (Fingerstick) 291 mg/dL (70-99) C-Reactive Protein, Quantitative 7.3 mg/L (0-3.3) Vitamin B12 Level 259 pg/mL (247-911) Laboratory Tests Test 06/11/20 23:05 06/12/20 02:18 06/12/20 07:19 06/12/20 08:30 White Blood Count 11.7 x10^3/uL (4.0-11.0) 9.6 x10^3/uL (4.0-11.0) Red Blood Count 4.53 x10^6/uL (4.30-5.70) 4.49 x10^6/uL (4.30-5.70) Hemoglobin 14.8 g/dL (13.0-17.5) 14.5 g/dL (13.0-17.5) Hematocrit 42.5 % (39.0-53.0) 42.5 % (39.0-53.0) Mean Corpuscular Volume 94 fL (79-100) 95 fL (79-100) Mean Corpuscular Hemoglobin 33 pg (25-35) 32 pg (25-35) Mean Corpuscular Hemoglobin Concent 35 g/dL (31-37) 34 g/dL (31-37) Red Cell Distribution Width 13.5 % (11.5-14.5) 13.5 % (11.5-14.5) Platelet Count 187 x10^3/uL (140-400) 178 x10^3/uL (140-400) Neutrophils (%) (Auto) 69 % (31-73) 84 % (31-73) Lymphocytes (%) (Auto) 23 % (24-48) 14 % (24-48) Monocytes (%) (Auto) 5 % (0-9) 1 % (0-9) Eosinophils (%) (Auto) 1 % (0-3) 0 % (0-3) Basophils (%) (Auto) 1 % (0-3) 1 % (0-3) Neutrophils # (Auto) 8.0 x10^3/uL (1.8-7.7) 8.1 x10^3/uL (1.8-7.7) Lymphocytes # (Auto) 2.7 x10^3/uL (1.0-4.8) 1.3 x10^3/uL (1.0-4.8) Monocytes # (Auto) 0.6 x10^3/uL (0.0-1.1) 0.1 x10^3/uL (0.0-1.1) Eosinophils # (Auto) 0.2 x10^3/uL (0.0-0.7) 0.0 x10^3/uL (0.0-0.7) Basophils # (Auto) 0.2 x10^3/uL (0.0-0.2) 0.1 x10^3/uL (0.0-0.2) Segmented Neutrophils % 75 % (35-66) Lymphocytes % 18 % (24-48) Monocytes % 6 % (0-10) Eosinophils % 1 % (0-5) Platelet Estimate Adequate (ADEQUATE) Sodium Level 141 mmol/L (136-145) 136 mmol/L (136-145) Potassium Level 3.3 mmol/L (3.5-5.1) 4.4 mmol/L (3.5-5.1) Chloride Level 101 mmol/L (98-107) 97 mmol/L (98-107) Carbon Dioxide Level 33 mmol/L (21-32) 30 mmol/L (21-32) Anion Gap 7 (6-14) 9 (6-14) Blood Urea Nitrogen 13 mg/dL (8-26) 19 mg/dL (8-26) Creatinine 1.2 mg/dL (0.7-1.3) 1.3 mg/dL (0.7-1.3) Estimated GFR (Cockcroft-Gault) 61.6 56.1 BUN/Creatinine Ratio 11 (6-20) Glucose Level 143 mg/dL (70-99) 362 mg/dL (70-99) Calcium Level 9.1 mg/dL (8.5-10.1) 8.7 mg/dL (8.5-10.1) Total Bilirubin 0.5 mg/dL (0.2-1.0) Aspartate Amino Transf (AST/SGOT) 22 U/L (15-37) Alanine Aminotransferase (ALT/SGPT) 25 U/L (16-63) Alkaline Phosphatase 68 U/L (46-116) Creatine Kinase 27 U/L (39-308) Total Protein 7.3 g/dL (6.4-8.2) Albumin 3.1 g/dL (3.4-5.0) Albumin/Globulin Ratio 0.7 (1.0-1.7) Urine Collection Type Unknown Urine Color Zoe Urine Clarity Clear Urine pH 7.0 (<5.0-8.0) Urine Specific [place] 1.025 (1.000-1.030) Urine Protein >=300 mg/dL (NEG-TRACE) Urine Glucose (UA) Negative mg/dL (NEG) Urine Ketones (Stick) Negative mg/dL (NEG) Urine Blood Negative (NEG) Urine Nitrite Negative (NEG) Urine Bilirubin Negative (NEG) Urine Urobilinogen Dipstick 1.0 mg/dL (0.2 mg/dL) Urine Leukocyte Esterase Negative (NEG) Urine RBC 3-5 /HPF (0-2) Urine WBC 5-10 /HPF (0-4) Urine Squamous Epithelial Cells Mod /LPF Urine Bacteria Few /HPF (0-FEW) Urine Mucus Mod /LPF Glucose (Fingerstick) 291 mg/dL (70-99) C-Reactive Protein, Quantitative 7.3 mg/L (0-3.3) Vitamin B12 Level 259 pg/mL (247-911) VTE Prophylaxis Ordered VTE Prophylaxis Devices: No VTE Pharmacological Prophylaxi: No Assessment/Plan Assessment/Plan Intractable back pain Left AGAINST MEDICAL ADVICE before being seen Justicifation of Admission Dx: Justifications for Admission: Justification of Admission Dx: Yes HERMES FELIX MD Jun 12, 2020 13:51
[2020-06-12] MEDS ORDERED: TAMSULOSIN 0.4 MG CAP.ER.24H. PO SCH (21:00)
[2020-06-12] MEDS ORDERED: DONEPEZIL HCL 5 MG TABLET. PO SCH (21:00)
[2020-06-12] MEDS ORDERED: traZODone 50 MG TABLET. PO SCH (21:00)
[2020-06-12] MEDS ORDERED: rOPINIRole 0.25 MG TABLET. PO SCH (21:00)
[2020-06-12] MEDS ORDERED: ATORVASTATIN CALCIUM 40 MG TABLET. PO SCH (21:00)
== END 2020-06-12 11:25 | disposition left against medical advice (07) ==
LOC: ER 22:31 → 4 NORTH 06-12 02:00
PROVIDERS: ADMIT Internal Medicine; ATTEND Internal Medicine
DX: M54.5 Low back pain (principal); M48.061 Spinal stenosis, lumbar region without neurogenic claudication; G89.29 Other chronic pain; E11.22 Type 2 diabetes mellitus with diabetic chronic kidney disease; I12.9 Hypertensive chronic kidney disease with stage 1 through stage 4 chronic kidney disease, or unspecified chronic kidney disease; N18.9 Chronic kidney disease, unspecified; J44.9 Chronic obstructive pulmonary disease, unspecified; I48.91 Unspecified atrial fibrillation; I25.10 Atherosclerotic heart disease of native coronary artery without angina pectoris; G45.9 Transient cerebral ischemic attack, unspecified; F03.90 Unspecified dementia, unspecified severity, without behavioral disturbance, psychotic disturbance, mood disturbance, and anxiety; Z85.038 Personal history of other malignant neoplasm of large intestine; Z86.73 Personal history of transient ischemic attack (TIA), and cerebral infarction without residual deficits; Z86.74 Personal history of sudden cardiac arrest; Z87.891 Personal history of nicotine dependence; Z90.49 Acquired absence of other specified parts of digestive tract; W18.30XA Fall on same level, unspecified, initial encounter; Y93.89 Activity, other specified; Y92.89 Other specified places as the place of occurrence of the external cause; Y99.8 Other external cause status
CPT/HCPCS: 36415; 72148; 80048; 80053; 81001; 82550; 82607; 82962; 85007; 85025; 86140; 87086; 96372; 96374; 96375; 96376; 99284; G0378; G0379; J1100; J1815; J2405; J3010